=== PATIENT | female | born 1985 | race Two or more races ===

== ENCOUNTER 2016-10-05 00:55 | Emergency (ER) | payer MEDICAID, OTHER ==
[~2016-10-05] VITALS: Ht 157.5 cm; Wt 75.3 kg
[2016-10-05 07:22] VITALS: BP 104/70
[2016-10-05] MEDS ORDERED: LIDOCAINE 2%HCL (LOCAL ANESTH.) INJ 20ML MDV ID ONE (07:30)
[2016-10-05] MEDS ORDERED: NEOMYCIN-BACITRACIN-POLYM UNITDOSE PKG TOP OINT TOP ONE (07:30)
[2016-10-05] MEDS ORDERED: TETANUS-DIPTH-ACEL PERTUSSIS 0.5ML SYRG IM ONE (07:30)
== END 2016-10-05 08:23 | disposition home or self-care (01) ==
LOC: ER 00:58
DX: S61.211A Laceration without foreign body of left index finger without damage to nail, initial encounter (principal); Z88.0 Allergy status to penicillin; F17.210 Nicotine dependence, cigarettes, uncomplicated; Z23 Encounter for immunization; W23.0XXA Caught, crushed, jammed, or pinched between moving objects, initial encounter; Y93.89 Activity, other specified; Y99.8 Other external cause status; Y92.89 Other specified places as the place of occurrence of the external cause
CPT/HCPCS: 12001; 12041; 29130; 73130; 90471; 90715

== ENCOUNTER 2021-10-20 16:52 | Inpatient (IN) | payer MEDICAID ==
[~2021-10-20] VITALS: Ht 157.5 cm; Wt 75.1 kg
[2021-10-20] MEDS ORDERED: MORPHINE SULFATE 4 MG/ML SYR/VIAL IV ONE (17:15)
[2021-10-20] MEDS ORDERED: InsuLIN REG 1unit/0.01ml Soln (100units/ml) IV ONE (17:15)
[2021-10-20] MEDS ORDERED: ONDANSETRON HCL 4 MG/2 ML VIAL IV ONE (17:15)
[2021-10-20] MEDS ORDERED: PANTOPRAZOLE 40 MG/10 ML VIAL INJ IV ONE (17:15)
[2021-10-20] MEDS ORDERED: SODIUM CHLORIDE 0.9% 500 ML IV ONE (17:15)
[2021-10-20 18:06] LABS: Eosinophils # (auto) 0 10 ^3/uL (0-0.8); Lymphocytes # (auto) 1.5 10 ^3/uL (0.4-5.4); Monocytes # (auto) 0.9 10 ^3/uL (0-1.3); Red Cell Distribution Width 14.4 % (11.8-14.3)
[2021-10-20 18:08] LABS: Basophils # (auto) 0.2 10 ^3/uL (0-0.2); Basophils % (auto) 1.1 % (0.0-2.0); Hematocrit 46.7 % (36.0-46.0); Hemoglobin 15.9 g/dL (12.2-16.2); Lymphocytes % (auto) 10.3 % (10.0-50.0); Mean Corpuscular Hemoglobin 26.5 pg (28.0-32.0); Mean Corpuscular Hgb Conc. 34.1 g/dL (32.0-36.0); Mean Corpuscular Volume 77.8 fL (80.0-100.0); Monocytes % (auto) 6.4 % (0.0-12.0); Neutrophils # (auto) 11.9 10 ^3/uL (1.6-8.6); Neutrophils % (auto) 82.2 % (37.0-80.0); White Blood Cell 14.5 10^3/uL (4.4-10.8)
[2021-10-20 18:22] LABS: Albumin 4.6 g/dL (3.4-5.0); Calcium 10.4 mg/dL (8.5-10.1); Potassium 3.4 mmol/L (3.5-5.1)
[2021-10-20 18:25] LABS: BUN/Creatinine Ratio 10.1; Bilirubin, Total 1.3 mg/dL (0.2-1.0); Total Protein 8.5 g/dL (6.4-8.2)
[2021-10-20 18:48] LABS: INR 1.07 (0.9-1.15)
[2021-10-20] MEDS ORDERED: DEXTROSE (50%) 50ML SYRG IV PRN ×2 (19:30→22:00)
[2021-10-20] MEDS ORDERED: INSULIN LANTUS (GLARGINE) 1 /0.01ml (100units/ml) SC ONE (19:30)
[2021-10-20] MEDS: ACCU-CHEK COMFORT CURVE STRIP VI SCH ×3 (19:30→22:37)
[2021-10-20 20:04] LABS: Urine Bacteria FEW /hpf (None Seen); Urine Blood Negative /uL (Negative); Urine Specific Gravity 1.028 (1.001-1.035); Urine WBC 2 /hpf (0 - 5)
[2021-10-20] MEDS: InsuLIN R (HUMAN) 100 UNITS in SODIUM CHL 0.9% 99 ML IV SCH (21:00)
[2021-10-20] MEDS ORDERED: NITROGLYCERIN 0.4 MG SL TAB SL PRN (22:00)
[2021-10-20 23:02] LABS: Hematocrit 43.9 % (36.0-46.0); Hemoglobin 14.8 g/dL (12.2-16.2)
[2021-10-20 23:18] LABS: Calcium 9.5 mg/dL (8.5-10.1); Potassium 3.2 mmol/L (3.5-5.1)
[2021-10-20] MEDS: ONDANSETRON HCL 4 MG/2 ML VIAL IV PRN (23:31)
[2021-10-20] MEDS: MORPHINE SULFATE INJECTION 2 MG/ML SYRG IV PRN (23:41)
[2021-10-21] MEDS: ACCU-CHEK COMFORT CURVE STRIP VI SCH ×15 (00:06→19:55)
[2021-10-21] MEDS: ONDANSETRON HCL 4 MG/2 ML VIAL IV PRN ×3 (03:15→21:58)
[2021-10-21] MEDS: MORPHINE SULFATE INJECTION 2 MG/ML SYRG IV PRN ×3 (03:15→19:59)
[2021-10-21] MEDS ORDERED: MORPHINE SULFATE INJECTION 2 MG/ML SYRG ONE (08:14)
[2021-10-21] MEDS ORDERED: PROMETHAZINE HCL 25 MG/ML 1ML IV ONE (08:15)
[2021-10-21] MEDS: SODIUM CHLORIDE 0.9% 1,000 ML IV SCH ×3 (08:42→19:52)
[2021-10-21 09:21] LABS: Eosinophils # (auto) 0 10 ^3/uL (0-0.8)
[2021-10-21 09:23] LABS: Basophils # (auto) 0 10 ^3/uL (0-0.2); Basophils % (auto) 0.2 % (0.0-2.0); Eosinophils % (auto) 0.1 % (0.0-7.0); Hematocrit 40.6 % (36.0-46.0); Hemoglobin 13.9 g/dL (12.2-16.2); Lymphocytes % (auto) 12.3 % (10.0-50.0); Mean Corpuscular Hemoglobin 26.8 pg (28.0-32.0); Mean Corpuscular Hgb Conc. 34.3 g/dL (32.0-36.0); Monocytes % (auto) 6.2 % (0.0-12.0); Neutrophils % (auto) 81.2 % (37.0-80.0); Nucleated Red Blood Cells % 0.2 %
[2021-10-21 09:32] LABS: Albumin 4.1 g/dL (3.4-5.0); Calcium 9.3 mg/dL (8.5-10.1)
[2021-10-21 09:35] LABS: BUN/Creatinine Ratio 21.1; Bilirubin, Total 1.4 mg/dL (0.2-1.0); Total Protein 7.3 g/dL (6.4-8.2)
[2021-10-21 09:37] LABS: Potassium 2.8 mmol/L (3.5-5.1)
[2021-10-21] MEDS ORDERED: POTASSIUM EFFERVESENT TAB 25 MEQ PO ONE (09:45)
[2021-10-21] MEDS ORDERED: INSULIN LANTUS (GLARGINE) 1 /0.01ml (100units/ml) SC SCH (10:00)
[2021-10-21] MEDS ORDERED: D5W/SOD CHL 0.45%/KCL 20MEQ 1,000 ML IV SCH (10:45)
[2021-10-21] MEDS ORDERED: SODIUM CHLORIDE 0.9% 1,000 ML IV SCH ×2 (12:15→14:15)
[2021-10-21] MEDS: POTASSIUM CHL 10MEQ/50ML 50 ML IV SCH ×4 (12:42→16:14)
[2021-10-21] MEDS: InsuLIN R (HUMAN) 100 UNITS in SODIUM CHL 0.9% 99 ML IV SCH (12:47)
[2021-10-21] MEDS: PROMETHAZINE HCL 25 MG/ML 1ML IV PRN ×2 (12:49→20:01)
[2021-10-21 14:07] LABS: BUN/Creatinine Ratio 18.7; Calcium 8.8 mg/dL (8.5-10.1); Potassium 3.4 mmol/L (3.5-5.1)
[2021-10-21] MEDS ORDERED: LACTULOSE 20Gm/30ML SOLN PO PRN (15:00)
[2021-10-21 16:54] LABS: BUN/Creatinine Ratio 18.4; Calcium 7.7 mg/dL (8.5-10.1); Potassium 3.9 mmol/L (3.5-5.1)
[2021-10-21] MEDS: SUCRALFATE 1 GM/10 ML ORAL SUSP PO SCH ×2 (17:30→21:57)
[2021-10-21] MEDS ORDERED: INSULIN LANTUS (GLARGINE) 1 /0.01ml (100units/ml) SC ONE (19:30)
[2021-10-21] MEDS ORDERED: DEXTROSE (50%) 50ML SYRG IV PRN (19:30)
[2021-10-21] MEDS: InsuLIN REG 1unit/0.01ml Soln (100units/ml) SC SCH (19:55)
[2021-10-21] MEDS: PANTOPRAZOLE 40 MG/10 ML VIAL INJ IV SCH (21:57)
[2021-10-22] MEDS: MORPHINE SULFATE INJECTION 2 MG/ML SYRG IV PRN ×5 (00:46→21:55)
[2021-10-22] MEDS: ACCU-CHEK COMFORT CURVE STRIP VI SCH ×7 (00:46→23:57)
[2021-10-22] MEDS: InsuLIN REG 1unit/0.01ml Soln (100units/ml) SC SCH ×6 (00:52→20:14)
[2021-10-22 01:30] VITALS: BP 141/84
[2021-10-22] MEDS: ONDANSETRON HCL 4 MG/2 ML VIAL IV PRN ×4 (04:11→20:05)
[2021-10-22 05:00] VITALS: BP 128/82
[2021-10-22 05:49] LABS: Basophils # (auto) 0.1 10 ^3/uL (0-0.2); Eosinophils # (auto) 0 10 ^3/uL (0-0.8); Eosinophils % (auto) 0.2 % (0.0-7.0); Hemoglobin 12.3 g/dL (12.2-16.2); Mean Corpuscular Volume 78.7 fL (80.0-100.0); Monocytes # (auto) 0.7 10 ^3/uL (0-1.3); Monocytes % (auto) 6.1 % (0.0-12.0); Neutrophils # (auto) 8.6 10 ^3/uL (1.6-8.6); Nucleated Red Blood Cells % 0.1 %; White Blood Cell 12.2 10^3/uL (4.4-10.8)
[2021-10-22 05:51] LABS: Basophils % (auto) 0.8 % (0.0-2.0); Lymphocytes # (auto) 2.7 10 ^3/uL (0.4-5.4); Lymphocytes % (auto) 22.5 % (10.0-50.0); Mean Corpuscular Hemoglobin 26.8 pg (28.0-32.0); Mean Corpuscular Hgb Conc. 34.1 g/dL (32.0-36.0); Neutrophils % (auto) 70.4 % (37.0-80.0); Red Blood Cells 4.58 10^6/uL (4.0-5.20); Red Cell Distribution Width 14.1 % (11.8-14.3)
[2021-10-22 06:01] LABS: Albumin 3.3 g/dL (3.4-5.0); Calcium 8.4 mg/dL (8.5-10.1); Potassium 3.2 mmol/L (3.5-5.1)
[2021-10-22 06:06] LABS: BUN/Creatinine Ratio 10.3
[2021-10-22 06:07] LABS: Bilirubin, Total 0.9 mg/dL (0.2-1.0)
[2021-10-22] MEDS: SUCRALFATE 1 GM/10 ML ORAL SUSP PO SCH ×4 (07:00→21:53)
[2021-10-22] MEDS ORDERED: LIDOCAINE VISCOUS 2% 15ML UD ONE (08:09)
[2021-10-22] MEDS ORDERED: SODIUM CHLORIDE LOCK 10 ML ONE (08:09)
[2021-10-22] MEDS ORDERED: diphenhdrAMINE HCL 50 MG/1 ML VL ONE (08:10)
[2021-10-22 09:09] VITALS: BP 99/67
[2021-10-22] MEDS: fentaNYL CITRATE 100 MCG/2 ML VL ONE ×2 (09:22→09:25)
[2021-10-22] MEDS: MIDAZOLAM HCL 5 MG/ML-1ML VIAL ONE ×2 (09:22→09:25)
[2021-10-22] MEDS: POTASSIUM CHL 10MEQ/50ML 50 ML IV SCH ×4 (10:24→17:12)
[2021-10-22] MEDS: PANTOPRAZOLE 40 MG/10 ML VIAL INJ IV SCH ×2 (10:24→21:53)
[2021-10-22] MEDS: INSULIN LANTUS (GLARGINE) 1 /0.01ml (100units/ml) SC SCH (11:13)
[2021-10-22] MEDS ORDERED: ROSU5TAB5 PO (11:37)
[2021-10-22] MEDS ORDERED: LISI-285 PO (11:37)
[2021-10-22 12:55] VITALS: BP 132/78
[2021-10-22] MEDS ORDERED: METF-371 PO (15:36)
[2021-10-22] MEDS ORDERED: SUCR1TAB22 PO (15:36)
[2021-10-22] MEDS ORDERED: PANT40TA2 PO (15:36)
[2021-10-22] MEDS ORDERED: INSLANTI SC (15:36)
[2021-10-22] MEDS ORDERED: CHOL500023 PO (15:41)
[2021-10-22 16:57] VITALS: BP 145/93
[2021-10-22 22:00] VITALS: BP 138/79
[2021-10-22] MEDS: PROMETHAZINE HCL 25 MG/ML 1ML IV PRN (23:44)
[2021-10-23] MEDS: InsuLIN REG 1unit/0.01ml Soln (100units/ml) SC SCH ×4 (00:02→12:00)
[2021-10-23] MEDS: ONDANSETRON HCL 4 MG/2 ML VIAL IV PRN (03:39)
[2021-10-23] MEDS: ACCU-CHEK COMFORT CURVE STRIP VI SCH ×3 (03:50→12:00)
[2021-10-23 05:00] VITALS: BP 125/83
[2021-10-23] MEDS: SUCRALFATE 1 GM/10 ML ORAL SUSP PO SCH ×2 (07:06→11:30)
[2021-10-23] MEDS: SODIUM CHLORIDE 0.9% 1,000 ML IV SCH ×2 (07:13→11:30)
[2021-10-23 07:33] LABS: Basophils # (auto) 0.1 10 ^3/uL (0-0.2); Basophils % (auto) 1.1 % (0.0-2.0); Hemoglobin 12.5 g/dL (12.2-16.2); Lymphocytes # (auto) 2.7 10 ^3/uL (0.4-5.4); Monocytes # (auto) 0.5 10 ^3/uL (0-1.3); Nucleated Red Blood Cells % 0.1 %
[2021-10-23 07:35] LABS: Eosinophils # (auto) 0.1 10 ^3/uL (0-0.8); Hematocrit 36.7 % (36.0-46.0); Lymphocytes % (auto) 36.6 % (10.0-50.0); Mean Corpuscular Hgb Conc. 34.2 g/dL (32.0-36.0); Monocytes % (auto) 6.4 % (0.0-12.0); Neutrophils % (auto) 53.9 % (37.0-80.0); Red Blood Cells 4.64 10^6/uL (4.0-5.20); Red Cell Distribution Width 14.1 % (11.8-14.3); White Blood Cell 7.3 10^3/uL (4.4-10.8)
[2021-10-23] MEDS: PANTOPRAZOLE 40 MG/10 ML VIAL INJ IV SCH (08:46)
[2021-10-23] MEDS: INSULIN LANTUS (GLARGINE) 1 /0.01ml (100units/ml) SC SCH (08:47)
[2021-10-23] MEDS: MORPHINE SULFATE INJECTION 2 MG/ML SYRG IV PRN (08:49)
[2021-10-23 09:00] VITALS: BP 119/79
== END 2021-10-23 12:15 | disposition home or self-care (01) | DRG 241 ==
LOC: EDBD 16:52 → ER 16:52 → OVERFLOW 21:48 → TELE-CENTR 10-21 23:22
PROVIDERS: ADMIT Nurse Practitioner; ATTEND Internal Medicine
PROC: 0DJ08ZZ Inspection of Upper Intestinal Tract, Via Natural or Artificial Opening Endoscopic (ICD-10-PCS; principal; 2021-10-22 09:19)
DX: K29.71 Gastritis, unspecified, with bleeding (principal); N17.0 Acute kidney failure with tubular necrosis; E11.10 Type 2 diabetes mellitus with ketoacidosis without coma; K20.91 Esophagitis, unspecified with bleeding; R65.10 Systemic inflammatory response syndrome (SIRS) of non-infectious origin without acute organ dysfunction; K76.0 Fatty (change of) liver, not elsewhere classified; K29.81 Duodenitis with bleeding; D72.829 Elevated white blood cell count, unspecified; E87.6 Hypokalemia; E55.9 Vitamin D deficiency, unspecified; E66.9 Obesity, unspecified; E78.5 Hyperlipidemia, unspecified; F12.90 Cannabis use, unspecified, uncomplicated; F17.210 Nicotine dependence, cigarettes, uncomplicated; I10 Essential (primary) hypertension; K57.30 Diverticulosis of large intestine without perforation or abscess without bleeding; Z20.822 Contact with and (suspected) exposure to COVID-19; Z80.0 Family history of malignant neoplasm of digestive organs; Z68.30 Body mass index [BMI] 30.0-30.9, adult; Z82.49 Family history of ischemic heart disease and other diseases of the circulatory system; Z83.3 Family history of diabetes mellitus; Z90.49 Acquired absence of other specified parts of digestive tract; Z90.710 Acquired absence of both cervix and uterus; Z88.2 Allergy status to sulfonamides; Z88.0 Allergy status to penicillin
CPT/HCPCS: 36415; 36600; 74176; 80048; 80053; 80061; 81001; 82010; 82150; 82306; 82805; 82962; 83036; 83690; 83735; 84132; 84443; 85014; 85018; 85025; 85610; 85730; 86850; 86900; 86901; 87426; 93005; 96361; 96372; 96374; 96375; 99291; C9113; G0378; J1815; J2250; J2405

== ENCOUNTER 2021-11-12 08:16 | Inpatient (IN) | payer MEDICAID ==
[~2021-11-12] VITALS: Ht 152.4 cm; Wt 71.8 kg
[~2021-11-12 08:16] MED LIST: CHOL500023 PO; INSLANTI SC; LISI-285 PO; METF-371 PO; PANT40TA2 PO; ROSU5TAB5 PO; SUCR1TAB22 PO
[2021-11-12] MEDS ORDERED: SODIUM CHLORIDE 0.9% 1,000 ML IV ONE (08:45)
[2021-11-12 08:53] LABS: Basophils # (auto) 0 10 ^3/uL (0-0.2); Basophils % (auto) 0.3 % (0.0-2.0); Eosinophils # (auto) 0 10 ^3/uL (0-0.8); Hematocrit 42.3 % (36.0-46.0); Red Cell Distribution Width 14.2 % (11.8-14.3)
[2021-11-12 08:54] LABS: Eosinophils % (auto) 0.2 % (0.0-7.0); Hemoglobin 14.9 g/dL (12.2-16.2); Lymphocytes # (auto) 1.8 10 ^3/uL (0.4-5.4); Lymphocytes % (auto) 11.7 % (10.0-50.0); Mean Corpuscular Hemoglobin 27.4 pg (28.0-32.0); Mean Corpuscular Hgb Conc. 35.2 g/dL (32.0-36.0); Mean Corpuscular Volume 77.7 fL (80.0-100.0); Monocytes # (auto) 0.8 10 ^3/uL (0-1.3); Monocytes % (auto) 5.1 % (0.0-12.0); Neutrophils # (auto) 12.8 10 ^3/uL (1.6-8.6); Neutrophils % (auto) 82.7 % (37.0-80.0); Red Blood Cells 5.44 10^6/uL (4.0-5.20); White Blood Cell 15.4 10^3/uL (4.4-10.8)
[2021-11-12] MEDS ORDERED: MORPHINE SULFATE 4 MG/ML SYR/VIAL IV ONE (09:00)
[2021-11-12] MEDS ORDERED: ONDANSETRON HCL 4 MG/2 ML VIAL IV ONE (09:00)
[2021-11-12 09:04] LABS: Albumin 4.7 g/dL (3.4-5.0); BUN/Creatinine Ratio 17.1; Calcium 10.1 mg/dL (8.5-10.1)
[2021-11-12 09:08] LABS: Bilirubin, Total 1.3 mg/dL (0.2-1.0)
[2021-11-12 09:12] LABS: Potassium 2.6 mmol/L (3.5-5.1)
[2021-11-12] MEDS ORDERED: InsuLIN REG 1unit/0.01ml Soln (100units/ml) IV ONE (09:15)
[2021-11-12] MEDS: POTASSIUM CHL 10MEQ/50ML 50 ML IV SCH ×8 (09:59→23:29)
[2021-11-12] MEDS ORDERED: NITROGLYCERIN 0.4 MG SL TAB SL PRN (11:00)
[2021-11-12] MEDS ORDERED: MORPHINE SULFATE INJECTION 2 MG/ML SYRG IV PRN (11:00)
[2021-11-12] MEDS ORDERED: LACTATED RINGER'S 2,000 ML IV ONE (11:00)
[2021-11-12] MEDS ORDERED: DEXTROSE (50%) 50ML SYRG IV PRN (11:00)
[2021-11-12] MEDS ORDERED: PANTOPRAZOLE 40 MG/10 ML VIAL INJ IV ONE (11:45)
[2021-11-12] MEDS ORDERED: SUCRALFATE 1 GM/10 ML ORAL SUSP PO ONE ×2 (11:45→12:45)
[2021-11-12] MEDS ORDERED: ONDANSETRON HCL 4 MG/2 ML VIAL IV PRN (12:30)
[2021-11-12] MEDS ORDERED: HYDROcodone-ACET 5/325MG TAB PO ONE (12:30)
[2021-11-12] MEDS ORDERED: HYDROcodone-ACET 5/325MG TAB PO PRN (12:30)
[2021-11-12] MEDS: ACCU-CHEK COMFORT CURVE STRIP VI SCH ×2 (12:38→18:00)
[2021-11-12] MEDS: InsuLIN REG 1unit/0.01ml Soln (100units/ml) SC SCH ×2 (12:38→18:00)
[2021-11-12] MEDS ORDERED: MULTIPLE VITAMINS W/ MINERALS TAB PO ONE (12:45)
[2021-11-12] MEDS: SOD CHL 0.9%/ KCL 20MEQ 1,000 ML IV SCH (12:45)
[2021-11-12] MEDS ORDERED: IPRATROPIUM BROM 0.5 MG/2.5ML INH SOL NEB ONE (12:45)
[2021-11-12] MEDS ORDERED: THIAMINE 100mg/ml INJ (200mg/2ml VIAL) IV ONE (12:45)
[2021-11-12] MEDS ORDERED: hydrOXYzine HCL 10 MG TAB PO PRN (12:45)
[2021-11-12] MEDS ORDERED: LACTULOSE 20Gm/30ML SOLN PO PRN (12:45)
[2021-11-12] MEDS ORDERED: PROMETHAZINE-DM 5 ML ORAL SYRUP PO PRN (12:45)
[2021-11-12] MEDS ORDERED: METOCLOPRAMIDE HCL 5MG/ml INJ 2ml VIAL IV PRN (12:45)
[2021-11-12] MEDS ORDERED: DOCUSATE SOD 100 MG CAP PO PRN (12:45)
[2021-11-12] MEDS ORDERED: cefTRIAXone 1GM/50ML D5W 50 ML IV ONE (12:45)
[2021-11-12] MEDS ORDERED: hydrALAZINE HCL 20 MG/ML VL IV PRN (12:45)
[2021-11-12] MEDS ORDERED: LORazepam 0.5 MG TAB PO PRN (12:45)
[2021-11-12] MEDS ORDERED: FOLIC ACID 1 MG TAB PO ONE (12:45)
[2021-11-12 13:46] LABS: Urine Bacteria FEW /hpf (None Seen); Urine Blood Negative /uL (Negative); Urine Mucus FEW (None Seen); Urine Specific Gravity 1.026 (1.001-1.035); Urine WBC 7 /hpf (0 - 5)
[2021-11-12 13:51] LABS: Magnesium 2.2 mg/dL (1.6-2.6)
[2021-11-12 15:16] LABS: INR 1.19 (0.9-1.15)
[2021-11-12] MEDS: MORPHINE SULFATE INJECTION 2 MG/ML SYRG IV PRN ×2 (15:32→22:50)
[2021-11-12 16:02] LABS: Albumin 3.5 g/dL (3.4-5.0); Calcium 8.1 mg/dL (8.5-10.1)
[2021-11-12 16:05] LABS: BUN/Creatinine Ratio 18.1; Bilirubin, Total 0.9 mg/dL (0.2-1.0); Total Protein 6.1 g/dL (6.4-8.2)
[2021-11-12 16:10] LABS: Potassium 2.8 mmol/L (3.5-5.1)
[2021-11-12] MEDS: SUCRALFATE 1 GM/10 ML ORAL SUSP PO SCH ×2 (17:00→21:03)
[2021-11-12] MEDS ORDERED: SUCRALFATE 1 GM/10 ML ORAL SUSP PO SCH (17:00)
[2021-11-12] MEDS: IPRATROPIUM BROM 0.5 MG/2.5ML INH SOL NEB SCH ×2 (18:00→22:24)
[2021-11-12] MEDS: ATORVASTATIN 20 MG TAB PO SCH (21:04)
[2021-11-12 21:48] VITALS: BP 135/80
[2021-11-12 22:01] VITALS: BP 108/25
[2021-11-12] MEDS: ONDANSETRON HCL 4 MG/2 ML VIAL IV PRN (22:50)
[2021-11-13] MEDS: InsuLIN REG 1unit/0.01ml Soln (100units/ml) SC SCH ×5 (00:08→23:49)
[2021-11-13] MEDS: IPRATROPIUM BROM 0.5 MG/2.5ML INH SOL NEB SCH ×2 (02:00→06:19)
[2021-11-13 05:00] VITALS: BP 114/72
[2021-11-13] MEDS: ACCU-CHEK COMFORT CURVE STRIP VI SCH ×5 (06:04→23:48)
[2021-11-13] MEDS: SUCRALFATE 1 GM/10 ML ORAL SUSP PO SCH ×4 (06:05→22:06)
[2021-11-13 06:44] LABS: INR 1.19 (0.9-1.15); Partial Thromboplastin Time 25.2 sec (23.6-33.0)
[2021-11-13 06:50] LABS: Magnesium 1.5 mg/dL (1.6-2.6); Phosphorus 3.2 mg/dL (2.5-4.90)
[2021-11-13] MEDS: ONDANSETRON HCL 4 MG/2 ML VIAL IV PRN ×2 (08:53→17:24)
[2021-11-13] MEDS: MORPHINE SULFATE INJECTION 2 MG/ML SYRG IV PRN ×2 (08:55→17:25)
[2021-11-13] MEDS: SOD CHL 0.9%/ KCL 20MEQ 1,000 ML IV SCH ×3 (09:11→21:05)
[2021-11-13] MEDS: cefTRIAXone 1GM/50ML D5W 50 ML IV SCH (09:12)
[2021-11-13] MEDS: PANTOPRAZOLE 40 MG/10 ML VIAL INJ IV SCH (09:12)
[2021-11-13] MEDS: BENAZEPRIL HCL 10 MG TAB PO SCH (09:17)
[2021-11-13] MEDS: CHOLECALCIFEROL (VITD3) 2,000 UNIT CAP/TAB PO SCH (09:17)
[2021-11-13] MEDS: ASPirin 81 mg TAB PO SCH (09:18)
[2021-11-13] MEDS: FOLIC ACID 1 MG TAB PO SCH (09:18)
[2021-11-13] MEDS: THIAMINE HCL 100 MG TAB PO SCH (09:19)
[2021-11-13] MEDS: MULTIPLE VITAMINS W/ MINERALS TAB PO SCH (09:19)
[2021-11-13] MEDS: ENOXAPARIN SOD 40 MG/0.4 ML SYRINGE SC SCH (09:20)
[2021-11-13] MEDS ORDERED: IPRATROPIUM BROM 0.5 MG/2.5ML INH SOL NEB PRN (09:30)
[2021-11-13 12:00] VITALS: BP 122/75
[2021-11-13 14:22] LABS: Basophils # (auto) 0.1 10 ^3/uL (0-0.2); Basophils % (auto) 1.1 % (0.0-2.0); Eosinophils # (auto) 0.2 10 ^3/uL (0-0.8); Eosinophils % (auto) 2.1 % (0.0-7.0); Hematocrit 36.1 % (36.0-46.0); Hemoglobin 12.4 g/dL (12.2-16.2); Lymphocytes # (auto) 4.3 10 ^3/uL (0.4-5.4); Lymphocytes % (auto) 44.3 % (10.0-50.0); Mean Corpuscular Hemoglobin 27.2 pg (28.0-32.0); Mean Corpuscular Hgb Conc. 34.2 g/dL (32.0-36.0); Mean Corpuscular Volume 79.4 fL (80.0-100.0); Monocytes # (auto) 0.5 10 ^3/uL (0-1.3); Monocytes % (auto) 4.8 % (0.0-12.0); Neutrophils # (auto) 4.7 10 ^3/uL (1.6-8.6); Neutrophils % (auto) 47.7 % (37.0-80.0); Nucleated Red Blood Cells % 0.2 %; Red Blood Cells 4.55 10^6/uL (4.0-5.20); White Blood Cell 9.8 10^3/uL (4.4-10.8)
[2021-11-13 14:40] LABS: Calcium 8.3 mg/dL (8.5-10.1); Potassium 3.1 mmol/L (3.5-5.1)
[2021-11-13 14:43] LABS: Albumin 3.3 g/dL (3.4-5.0); BUN/Creatinine Ratio 8.5
[2021-11-13 14:54] LABS: Bilirubin, Total 0.8 mg/dL (0.2-1.0); Total Protein 5.9 g/dL (6.4-8.2)
[2021-11-13] MEDS: POTASSIUM CHL 10MEQ/50ML 50 ML IV SCH ×6 (15:53→23:22)
[2021-11-13 16:00] VITALS: BP 121/80
[2021-11-13 22:00] VITALS: BP 122/80
[2021-11-13] MEDS: ATORVASTATIN 20 MG TAB PO SCH (22:06)
[2021-11-14] MEDS: MORPHINE SULFATE INJECTION 2 MG/ML SYRG IV PRN ×2 (00:35→11:35)
[2021-11-14] MEDS: ONDANSETRON HCL 4 MG/2 ML VIAL IV PRN ×4 (00:36→21:47)
[2021-11-14] MEDS: SOD CHL 0.9%/ KCL 20MEQ 1,000 ML IV SCH ×3 (04:47→23:04)
[2021-11-14 05:00] VITALS: BP 111/57
[2021-11-14 05:33] LABS: Basophils # (auto) 0.1 10 ^3/uL (0-0.2); Basophils % (auto) 1.2 % (0.0-2.0); Eosinophils # (auto) 0.2 10 ^3/uL (0-0.8); Eosinophils % (auto) 3.8 % (0.0-7.0); Hematocrit 32.5 % (36.0-46.0); Hemoglobin 11.3 g/dL (12.2-16.2); Lymphocytes % (auto) 48.7 % (10.0-50.0); Mean Corpuscular Hemoglobin 27.3 pg (28.0-32.0); Mean Corpuscular Hgb Conc. 34.7 g/dL (32.0-36.0); Mean Corpuscular Volume 78.6 fL (80.0-100.0); Monocytes # (auto) 0.4 10 ^3/uL (0-1.3); Monocytes % (auto) 6.2 % (0.0-12.0); Neutrophils # (auto) 2.5 10 ^3/uL (1.6-8.6); Neutrophils % (auto) 40.1 % (37.0-80.0); Nucleated Red Blood Cells % 0.1 %; Red Blood Cells 4.14 10^6/uL (4.0-5.20); Red Cell Distribution Width 14.3 % (11.8-14.3); White Blood Cell 6.2 10^3/uL (4.4-10.8)
[2021-11-14 05:49] LABS: BUN/Creatinine Ratio 5.7; Calcium 8.3 mg/dL (8.5-10.1); Potassium 3.7 mmol/L (3.5-5.1)
[2021-11-14 05:55] LABS: Bilirubin, Total 0.8 mg/dL (0.2-1.0); Total Protein 5.4 g/dL (6.4-8.2)
[2021-11-14] MEDS: SUCRALFATE 1 GM/10 ML ORAL SUSP PO SCH ×4 (06:17→21:28)
[2021-11-14] MEDS: ACCU-CHEK COMFORT CURVE STRIP VI SCH ×4 (06:17→23:13)
[2021-11-14] MEDS: InsuLIN REG 1unit/0.01ml Soln (100units/ml) SC SCH ×4 (06:18→23:21)
[2021-11-14 08:00] VITALS: BP 99/69
[2021-11-14] MEDS: PANTOPRAZOLE 40 MG/10 ML VIAL INJ IV SCH (09:26)
[2021-11-14] MEDS: ASPirin 81 mg TAB PO SCH (09:26)
[2021-11-14] MEDS: cefTRIAXone 1GM/50ML D5W 50 ML IV SCH (09:26)
[2021-11-14] MEDS: CHOLECALCIFEROL (VITD3) 2,000 UNIT CAP/TAB PO SCH (09:27)
[2021-11-14] MEDS: FOLIC ACID 1 MG TAB PO SCH (09:27)
[2021-11-14] MEDS: THIAMINE HCL 100 MG TAB PO SCH (09:27)
[2021-11-14] MEDS: MULTIPLE VITAMINS W/ MINERALS TAB PO SCH (09:27)
[2021-11-14] MEDS: ENOXAPARIN SOD 40 MG/0.4 ML SYRINGE SC SCH (09:27)
[2021-11-14] MEDS: BENAZEPRIL HCL 10 MG TAB PO SCH (09:28)
[2021-11-14 12:00] VITALS: BP 149/98
[2021-11-14 16:00] VITALS: BP 137/86
[2021-11-14] MEDS: ATORVASTATIN 20 MG TAB PO SCH (21:28)
[2021-11-14 22:20] VITALS: BP 143/85
[2021-11-15] MEDS: SOD CHL 0.9%/ KCL 20MEQ 1,000 ML IV SCH ×2 (04:15→12:15)
[2021-11-15] MEDS: SUCRALFATE 1 GM/10 ML ORAL SUSP PO SCH ×3 (05:54→17:11)
[2021-11-15] MEDS: ACCU-CHEK COMFORT CURVE STRIP VI SCH ×3 (05:54→17:11)
[2021-11-15] MEDS: InsuLIN REG 1unit/0.01ml Soln (100units/ml) SC SCH ×3 (05:57→17:12)
[2021-11-15 06:02] LABS: Basophils # (auto) 0.1 10 ^3/uL (0-0.2); Basophils % (auto) 1.1 % (0.0-2.0); Eosinophils # (auto) 0.4 10 ^3/uL (0-0.8); Eosinophils % (auto) 5.3 % (0.0-7.0); Hematocrit 35.8 % (36.0-46.0); Hemoglobin 12.6 g/dL (12.2-16.2); Lymphocytes % (auto) 40.7 % (10.0-50.0); Mean Corpuscular Hemoglobin 27.3 pg (28.0-32.0); Mean Corpuscular Hgb Conc. 35.2 g/dL (32.0-36.0); Mean Corpuscular Volume 77.6 fL (80.0-100.0); Monocytes # (auto) 0.4 10 ^3/uL (0-1.3); Monocytes % (auto) 5.6 % (0.0-12.0); Neutrophils # (auto) 3.4 10 ^3/uL (1.6-8.6); Neutrophils % (auto) 47.3 % (37.0-80.0); Nucleated Red Blood Cells % 0.1 %; Red Blood Cells 4.61 10^6/uL (4.0-5.20); Red Cell Distribution Width 14.1 % (11.8-14.3); White Blood Cell 7.3 10^3/uL (4.4-10.8)
[2021-11-15 06:13] LABS: Potassium 3.7 mmol/L (3.5-5.1)
[2021-11-15 06:17] LABS: Albumin 3.3 g/dL (3.4-5.0); BUN/Creatinine Ratio 6.2; Calcium 9.1 mg/dL (8.5-10.1)
[2021-11-15 06:19] LABS: Bilirubin, Total 0.7 mg/dL (0.2-1.0); Total Protein 5.9 g/dL (6.4-8.2)
[2021-11-15 08:00] VITALS: BP 106/68
[2021-11-15] MEDS: ONDANSETRON HCL 4 MG/2 ML VIAL IV PRN ×2 (08:21→17:13)
[2021-11-15] MEDS: cefTRIAXone 1GM/50ML D5W 50 ML IV SCH (09:11)
[2021-11-15] MEDS: THIAMINE HCL 100 MG TAB PO SCH (09:12)
[2021-11-15] MEDS: FOLIC ACID 1 MG TAB PO SCH (09:12)
[2021-11-15] MEDS: PANTOPRAZOLE 40 MG/10 ML VIAL INJ IV SCH (09:12)
[2021-11-15] MEDS: CHOLECALCIFEROL (VITD3) 2,000 UNIT CAP/TAB PO SCH (09:12)
[2021-11-15] MEDS: ASPirin 81 mg TAB PO SCH (09:13)
[2021-11-15] MEDS: ENOXAPARIN SOD 40 MG/0.4 ML SYRINGE SC SCH (09:13)
[2021-11-15] MEDS: MULTIPLE VITAMINS W/ MINERALS TAB PO SCH (09:14)
[2021-11-15] MEDS: BENAZEPRIL HCL 10 MG TAB PO SCH (09:14)
[2021-11-15] MEDS ORDERED: LEVO500T31 PO (10:25)
[2021-11-15 11:48] VITALS: BP 143/95
[2021-11-15 15:46] VITALS: BP 106/68
[2021-11-15 16:05] VITALS: BP 128/88
== END 2021-11-15 18:50 | disposition home or self-care (01) | DRG 720 ==
LOC: ER 08:16 → EDBD 08:16 → TELE 10:50 → TELE-WESTW 18:14
PROVIDERS: ADMIT Hospitalist; ATTEND Family Medicine
DX: A41.9 Sepsis, unspecified organism (principal); E11.10 Type 2 diabetes mellitus with ketoacidosis without coma; E66.01 Morbid (severe) obesity due to excess calories; E87.6 Hypokalemia; K29.00 Acute gastritis without bleeding; N39.0 Urinary tract infection, site not specified; E78.5 Hyperlipidemia, unspecified; F12.90 Cannabis use, unspecified, uncomplicated; I10 Essential (primary) hypertension; Z20.822 Contact with and (suspected) exposure to COVID-19; Z68.30 Body mass index [BMI] 30.0-30.9, adult; F17.210 Nicotine dependence, cigarettes, uncomplicated; Z79.4 Long term (current) use of insulin; Z79.84 Long term (current) use of oral hypoglycemic drugs; Z82.49 Family history of ischemic heart disease and other diseases of the circulatory system; Z83.3 Family history of diabetes mellitus; Z90.710 Acquired absence of both cervix and uterus; Z90.49 Acquired absence of other specified parts of digestive tract; Z71.6 Tobacco abuse counseling; Z88.0 Allergy status to penicillin; Z88.2 Allergy status to sulfonamides
CPT/HCPCS: 36415; 36600; 74176; 80053; 80061; 81001; 81025; 82010; 82728; 82805; 82962; 83690; 83735; 83880; 84100; 84443; 84484; 85025; 85379; 85610; 85730; 87040; 87081; 87086; 87426; 94640; 96365; 96375; 99291; C9113; G0378; J0696; J1815; J2405

== ENCOUNTER 2021-11-26 12:53 | Inpatient (IN) | payer MEDICAID ==
[~2021-11-26] VITALS: Ht 152.4 cm; Wt 66.4 kg
[~2021-11-26 12:53] MED LIST changes: +LEVO500T31 PO
[2021-11-26] MEDS ORDERED: SODIUM CHLORIDE 0.9% 1,000 ML IVB ONE (13:15)
[2021-11-26] MEDS ORDERED: MORPHINE SULFATE 4 MG/ML SYR/VIAL IV ONE (13:15)
[2021-11-26] MEDS ORDERED: PROCHLORPERAZINE EDISYLATE 5 MG/ML 2ML VIAL IV ONE (13:15)
[2021-11-26] MEDS ORDERED: PANTOPRAZOLE 40 MG/10 ML VIAL INJ IV ONE (13:15)
[2021-11-26 14:17] LABS: Basophils # (auto) 0.1 10 ^3/uL (0-0.2); Eosinophils # (auto) 0 10 ^3/uL (0-0.8); Hematocrit 43.4 % (36.0-46.0); Hemoglobin 14.8 g/dL (12.2-16.2); Lymphocytes # (auto) 1.2 10 ^3/uL (0.4-5.4); Mean Corpuscular Hemoglobin 26.7 pg (28.0-32.0); Monocytes # (auto) 0.4 10 ^3/uL (0-1.3); White Blood Cell 12.2 10^3/uL (4.4-10.8)
[2021-11-26 14:20] LABS: Basophils % (auto) 0.7 % (0.0-2.0); Eosinophils % (auto) 0.2 % (0.0-7.0); Lymphocytes % (auto) 9.8 % (10.0-50.0); Mean Corpuscular Volume 78.5 fL (80.0-100.0); Monocytes % (auto) 3.3 % (0.0-12.0); Neutrophils # (auto) 10.5 10 ^3/uL (1.6-8.6); Nucleated Red Blood Cells % 0.1 %; Red Blood Cells 5.53 10^6/uL (4.0-5.20); Red Cell Distribution Width 14.2 % (11.8-14.3)
[2021-11-26 15:00] LABS: BUN/Creatinine Ratio 9.8; Calcium 9.8 mg/dL (8.5-10.1)
[2021-11-26 15:08] LABS: Bilirubin, Total 1.5 mg/dL (0.2-1.0); Total Protein 7.5 g/dL (6.4-8.2)
[2021-11-26] MEDS ORDERED: POTASSIUM CHL 20MEQ/100ML 100 ML IV ONE (15:30)
[2021-11-26] MEDS ORDERED: cefTRIAXone 1GM/50ML D5W 50 ML IV ONE (15:30)
[2021-11-26] MEDS ORDERED: MORPHINE SULFATE INJECTION 2 MG/ML SYRG IV PRN (17:00)
[2021-11-26] MEDS ORDERED: DEXTROSE (50%) 50ML SYRG IV PRN (17:00)
[2021-11-26] MEDS: POTASSIUM CHL 20MEQ/100ML 100 ML IV SCH ×2 (17:00→19:00)
[2021-11-26] MEDS ORDERED: NITROGLYCERIN 0.4 MG SL TAB SL PRN (17:00)
[2021-11-26] MEDS: ACCU-CHEK COMFORT CURVE STRIP VI SCH ×2 (17:37→21:53)
[2021-11-26] MEDS: InsuLIN REG 1unit/0.01ml Soln (100units/ml) SC SCH (18:09)
[2021-11-26] MEDS ORDERED: KETOROLAC TROMETH 30 MG/ML 1ML VIAL IV PRN (20:45)
[2021-11-26 21:00] VITALS: BP 127/82
[2021-11-26] MEDS: MORPHINE SULFATE INJECTION 2 MG/ML SYRG IV PRN (21:54)
[2021-11-26] MEDS: ONDANSETRON HCL 4 MG/2 ML VIAL IV PRN (21:54)
[2021-11-26 22:00] VITALS: BP 127/82
[2021-11-26] MEDS ORDERED: InsuLIN REG 1unit/0.01ml Soln (100units/ml) SC SCH (22:00)
[2021-11-27 02:40] LABS: Potassium 3.6 mmol/L (3.5-5.1)
[2021-11-27 02:55] LABS: INR 1.03 (0.9-1.15); Partial Thromboplastin Time 27.2 sec (23.6-33.0)
[2021-11-27 02:56] LABS: Phosphorus 2.8 mg/dL (2.5-4.90)
[2021-11-27 05:00] VITALS: BP 118/72
[2021-11-27] MEDS: MORPHINE SULFATE INJECTION 2 MG/ML SYRG IV PRN ×2 (05:28→20:50)
[2021-11-27] MEDS: ONDANSETRON HCL 4 MG/2 ML VIAL IV PRN ×3 (05:28→20:51)
[2021-11-27] MEDS: POTASSIUM CHL 20MEQ/100ML 100 ML IV SCH (05:42)
[2021-11-27 05:45] LABS: Basophils # (auto) 0.1 10 ^3/uL (0-0.2); Basophils % (auto) 1.1 % (0.0-2.0); Eosinophils # (auto) 0.2 10 ^3/uL (0-0.8); Eosinophils % (auto) 1.5 % (0.0-7.0); Hematocrit 34.6 % (36.0-46.0); Hemoglobin 11.9 g/dL (12.2-16.2); Lymphocytes # (auto) 2.6 10 ^3/uL (0.4-5.4); Lymphocytes % (auto) 24.9 % (10.0-50.0); Mean Corpuscular Hgb Conc. 34.5 g/dL (32.0-36.0); Mean Corpuscular Volume 78.4 fL (80.0-100.0); Monocytes # (auto) 0.5 10 ^3/uL (0-1.3); Monocytes % (auto) 4.8 % (0.0-12.0); Neutrophils % (auto) 67.7 % (37.0-80.0); Red Blood Cells 4.42 10^6/uL (4.0-5.20); Red Cell Distribution Width 14.2 % (11.8-14.3); White Blood Cell 10.3 10^3/uL (4.4-10.8)
[2021-11-27 06:03] LABS: INR 1.07 (0.9-1.15); Partial Thromboplastin Time 28.8 sec (23.6-33.0)
[2021-11-27 06:07] LABS: Potassium 3.3 mmol/L (3.5-5.1)
[2021-11-27 06:21] LABS: BUN/Creatinine Ratio 12.2; CRP High Sensitivity 3.35 mg/dL (< 0.3); Calcium 8.3 mg/dL (8.5-10.1); Magnesium 2.1 mg/dL (1.6-2.6); Phosphorus 3.2 mg/dL (2.5-4.90); Total Protein 5.6 g/dL (6.4-8.2); Uric Acid 2.4 mg/dL (2.6-6.0)
[2021-11-27] MEDS: InsuLIN REG 1unit/0.01ml Soln (100units/ml) SC SCH ×3 (07:00→17:14)
[2021-11-27] MEDS: ACCU-CHEK COMFORT CURVE STRIP VI SCH ×3 (07:00→17:13)
[2021-11-27 08:00] VITALS: BP 112/79
[2021-11-27 09:00] VITALS: BP 112/79
[2021-11-27 13:00] VITALS: BP 134/88
[2021-11-27] MEDS ORDERED: hydrALAZINE HCL 20 MG/ML VL IV PRN (14:30)
[2021-11-27] MEDS: D5W/ SOD CHL 0.9%/KCL 20MEQ 1,000 ML IV SCH (14:30)
[2021-11-27] MEDS ORDERED: DEXTROSE (50%) 50ML SYRG IV PRN (14:30)
[2021-11-27] MEDS ORDERED: PANTOPRAZOLE 40 MG/10 ML VIAL INJ IV ONE (14:30)
[2021-11-27 14:51] LABS: Alcohol, Urine < 3.0 mg/dL (0-10); Amphetamine Screen, Urine NEGATIVE (NEGATIVE); Barbiturate Scree,Urine NEGATIVE (NEGATIVE); Benzodiazephine Screen, Urine NEGATIVE (NEGATIVE); Cannabinoid Screen, Urine POSITIVE (NEGATIVE); Cocaine Screen, Urine NEGATIVE (NEGATIVE); Phencyclidine Screen, Urine NEGATIVE (NEGATIVE)
[2021-11-27 14:59] LABS: Opiate Scree,Urine POSITIVE (NEGATIVE)
[2021-11-27 15:35] LABS: Urine Bacteria FEW /hpf (None Seen); Urine Blood Negative /uL (Negative); Urine Mucus FEW (None Seen); Urine Specific Gravity 1.017 (1.001-1.035); Urine WBC 7 /hpf (0 - 5)
[2021-11-27 16:30] VITALS: BP 149/115
[2021-11-27] MEDS: SUCRALFATE 1 GM TAB PO SCH ×2 (17:20→22:18)
[2021-11-27 21:33] VITALS: BP 134/87
[2021-11-27] MEDS: PANTOPRAZOLE 40 MG/10 ML VIAL INJ IV SCH (22:18)
[2021-11-27] MEDS: INSULIN LANTUS (GLARGINE) 1 /0.01ml (100units/ml) SC SCH (22:19)
[2021-11-28] MEDS: ACCU-CHEK COMFORT CURVE STRIP VI SCH ×4 (00:21→18:00)
[2021-11-28] MEDS: InsuLIN REG 1unit/0.01ml Soln (100units/ml) SC SCH ×4 (00:24→18:42)
[2021-11-28] MEDS: MORPHINE SULFATE INJECTION 2 MG/ML SYRG IV PRN ×2 (02:50→09:12)
[2021-11-28 04:33] VITALS: BP 120/76
[2021-11-28] MEDS: D5W/ SOD CHL 0.9%/KCL 20MEQ 1,000 ML IV SCH (06:16)
[2021-11-28] MEDS: SUCRALFATE 1 GM TAB PO SCH ×4 (06:16→21:35)
[2021-11-28 07:03] LABS: Basophils # (auto) 0.1 10 ^3/uL (0-0.2); Basophils % (auto) 1.1 % (0.0-2.0); Eosinophils # (auto) 0.2 10 ^3/uL (0-0.8); Hemoglobin 12.1 g/dL (12.2-16.2); Monocytes # (auto) 0.4 10 ^3/uL (0-1.3)
[2021-11-28 07:05] LABS: Eosinophils % (auto) 2.5 % (0.0-7.0); Hematocrit 35.4 % (36.0-46.0); Lymphocytes # (auto) 3.1 10 ^3/uL (0.4-5.4); Lymphocytes % (auto) 38.1 % (10.0-50.0); Mean Corpuscular Hemoglobin 26.7 pg (28.0-32.0); Mean Corpuscular Hgb Conc. 34.1 g/dL (32.0-36.0); Mean Corpuscular Volume 78.4 fL (80.0-100.0); Monocytes % (auto) 4.8 % (0.0-12.0); Neutrophils # (auto) 4.3 10 ^3/uL (1.6-8.6); Neutrophils % (auto) 53.5 % (37.0-80.0); Red Blood Cells 4.52 10^6/uL (4.0-5.20); Red Cell Distribution Width 14.3 % (11.8-14.3); White Blood Cell 8.1 10^3/uL (4.4-10.8)
[2021-11-28 07:31] LABS: Potassium 3.4 mmol/L (3.5-5.1)
[2021-11-28 07:45] LABS: BUN/Creatinine Ratio 3.4; Calcium 8.8 mg/dL (8.5-10.1); Magnesium 2.1 mg/dL (1.6-2.6)
[2021-11-28 08:00] VITALS: BP 132/99
[2021-11-28] MEDS: PANTOPRAZOLE 40 MG/10 ML VIAL INJ IV SCH ×2 (09:09→21:35)
[2021-11-28] MEDS: CHOLECALCIFEROL (VITD3) 2,000 UNIT CAP/TAB PO SCH (09:09)
[2021-11-28] MEDS: ONDANSETRON HCL 4 MG/2 ML VIAL IV PRN (09:12)
[2021-11-28] MEDS ORDERED: POTASSIUM EFFERVESENT TAB 25 MEQ PO ONE (10:30)
[2021-11-28 12:00] VITALS: BP 129/85
[2021-11-28 12:12] LABS: Hepatitis A Ab IgM Negative
[2021-11-28 12:13] LABS: Hepatitis B Core IgM Negative
[2021-11-28 12:15] LABS: Hepatitis C Antibody Negative (Negative)
[2021-11-28] MEDS ORDERED: HYDROcodone-ACET 5/325MG TAB PO PRN (14:30)
[2021-11-28] MEDS ORDERED: METOCLOPRAMIDE HCL 5MG/ml INJ 2ml VIAL IV PRN (14:30)
[2021-11-28] MEDS ORDERED: levoFLOXacin 500MG 100 ML IV ONE (14:30)
[2021-11-28 16:00] VITALS: BP 130/85
[2021-11-28] MEDS: INSULIN LANTUS (GLARGINE) 1 /0.01ml (100units/ml) SC SCH (21:36)
[2021-11-28 22:00] VITALS: BP 136/86
[2021-11-29] MEDS: D5W/ SOD CHL 0.9%/KCL 20MEQ 1,000 ML IV SCH (00:11)
[2021-11-29] MEDS: InsuLIN REG 1unit/0.01ml Soln (100units/ml) SC SCH ×3 (00:15→12:48)
[2021-11-29] MEDS: ACCU-CHEK COMFORT CURVE STRIP VI SCH ×3 (00:17→12:00)
[2021-11-29 05:00] VITALS: BP 114/67
[2021-11-29] MEDS: SUCRALFATE 1 GM TAB PO SCH ×2 (06:03→12:48)
[2021-11-29 09:00] VITALS: BP 121/75
[2021-11-29] MEDS: PANTOPRAZOLE 40 MG/10 ML VIAL INJ IV SCH (09:44)
[2021-11-29] MEDS: levoFLOXacin 500MG 100 ML IV SCH ×2 (09:44→12:48)
[2021-11-29] MEDS: CHOLECALCIFEROL (VITD3) 2,000 UNIT CAP/TAB PO SCH (09:44)
[2021-11-29] MEDS ORDERED: ONDA-144 PO (10:30)
[2021-11-29] MEDS ORDERED: POTASSIUM EFFERVESENT TAB 25 MEQ PO ONE (10:30)
[2021-11-29] MEDS ORDERED: LEVO500T31 PO (10:30)
[2021-11-29] MEDS ORDERED: DOCU-94 PO (10:35)
[2021-11-29 12:30] VITALS: BP 131/72
[2021-11-29 16:13] VITALS: BP 121/85
== END 2021-11-29 16:32 | disposition home or self-care (01) | DRG 249 ==
LOC: EDBD 12:53 → ER 12:53 → EDUNIT# 12:53 → OVERFLOW 16:55 → WEST WING 21:00
PROVIDERS: ADMIT Hospitalist; ATTEND Internal Medicine
DX: R11.2 Nausea with vomiting, unspecified (principal); R65.10 Systemic inflammatory response syndrome (SIRS) of non-infectious origin without acute organ dysfunction; D64.9 Anemia, unspecified; E11.65 Type 2 diabetes mellitus with hyperglycemia; E55.9 Vitamin D deficiency, unspecified; E03.9 Hypothyroidism, unspecified; F12.90 Cannabis use, unspecified, uncomplicated; R10.13 Epigastric pain; E87.6 Hypokalemia; I10 Essential (primary) hypertension; K29.80 Duodenitis without bleeding; K59.00 Constipation, unspecified; E66.01 Morbid (severe) obesity due to excess calories; K21.9 Gastro-esophageal reflux disease without esophagitis; K29.00 Acute gastritis without bleeding; Z20.822 Contact with and (suspected) exposure to COVID-19; E78.5 Hyperlipidemia, unspecified; N39.0 Urinary tract infection, site not specified; Z80.0 Family history of malignant neoplasm of digestive organs; Z82.49 Family history of ischemic heart disease and other diseases of the circulatory system; Z83.3 Family history of diabetes mellitus; Z87.891 Personal history of nicotine dependence; Z90.49 Acquired absence of other specified parts of digestive tract; Z90.710 Acquired absence of both cervix and uterus; Z88.2 Allergy status to sulfonamides; Z88.0 Allergy status to penicillin; Z68.28 Body mass index [BMI] 28.0-28.9, adult
CPT/HCPCS: 36415; 74176; 80048; 80053; 80061; 80074; 80307; 81001; 81025; 82150; 82306; 82550; 82728; 82962; 83036; 83615; 83690; 83735; 83880; 84100; 84132; 84443; 84484; 84550; 85025; 85379; 85610; 85652; 85730; 86141; 86703; 87040; 87081; 87086; 96361; 96365; 96368; 96372; 96375; C9113; G0378; J0696; J1815; J1956; J2405; J3480

== ENCOUNTER 2022-11-20 07:37 | Inpatient (IN) | payer MEDICAID ==
[~2022-11-20] VITALS: Ht 154.9 cm; Wt 68.4 kg
[~2022-11-20 07:37] MED LIST changes: +DOCU-94 PO; +ONDA-144 PO
[2022-11-20 09:20] LABS: Urine Bacteria NONE SEEN /hpf (None Seen); Urine Blood Negative /uL (Negative); Urine Specific Gravity 1.015 (1.001-1.035); Urine WBC 1 /hpf (0 - 5)
[2022-11-20 09:23] LABS: Basophils # (auto) 0.1 10 ^3/uL (0-0.2); Basophils % (auto) 1.3 % (0.0-2.0); Eosinophils # (auto) 0.5 10 ^3/uL (0-0.8); Hematocrit 42.2 % (36.0-46.0); Lymphocytes # (auto) 1.9 10 ^3/uL (0.4-5.4); Lymphocytes % (auto) 20.9 % (10.0-50.0); Mean Corpuscular Hemoglobin 27.1 pg (28.0-32.0); Mean Corpuscular Hgb Conc. 33.2 g/dL (32.0-36.0); Mean Corpuscular Volume 81.6 fL (80.0-100.0); Monocytes # (auto) 0.4 10 ^3/uL (0-1.3); Neutrophils # (auto) 6.1 10 ^3/uL (1.6-8.6); Neutrophils % (auto) 67.8 % (37.0-80.0); Nucleated Red Blood Cells % 0.2 %; Red Blood Cells 5.17 10^6/uL (4.0-5.20); Red Cell Distribution Width 14.7 % (11.8-14.3); White Blood Cell 9.1 10^3/uL (4.4-10.8)
[2022-11-20 09:53] LABS: Albumin 4.1 g/dL (3.4-5.0); BUN/Creatinine Ratio 16.4; Bilirubin, Total 0.7 mg/dL (0.2-1.0); Calcium 9.5 mg/dL (8.5-10.1); Potassium 4.4 mmol/L (3.5-5.1); Total Protein 7.2 g/dL (6.4-8.2)
[2022-11-20] MEDS ORDERED: ONDANSETRON ODT 4 MG TAB PO ONE (10:15)
[2022-11-20] MEDS ORDERED: PANTOPRAZOLE 40 MG/10 ML VIAL INJ IV ONE (10:15)
[2022-11-20] MEDS ORDERED: ONDANSETRON HCL 4 MG/2 ML VIAL IV ONE (10:15)
[2022-11-20] MEDS ORDERED: SODIUM CHLORIDE 0.9% 1,000 ML IV ONE (10:15)
[2022-11-20 11:03] LABS: Lactic Acid w/Reflex 2.8 mmol/L (0.4-2.0)
[2022-11-20 11:05] LABS: INR 0.96 (0.9-1.15)
[2022-11-20] MEDS ORDERED: METOCLOPRAMIDE HCL 5MG/ml INJ 2ml VIAL IV PRN (11:15)
[2022-11-20] MEDS ORDERED: DOCUSATE SOD 100 MG CAP PO PRN (11:15)
[2022-11-20] MEDS ORDERED: DOCUSATE SOD 100 MG CAP PO ONE (11:15)
[2022-11-20] MEDS ORDERED: KETOROLAC TROMETH 30 MG/ML 1ML VIAL IV ONE (11:15)
[2022-11-20] MEDS ORDERED: SENNA 8.6 MG TAB PO ONE (11:15)
[2022-11-20] MEDS: SODIUM CHLORIDE 0.9% 1,000 ML IV SCH ×2 (11:30→22:09)
[2022-11-20] MEDS: SUCRALFATE 1 GM TAB PO SCH ×2 (17:16→22:09)
[2022-11-20 22:00] VITALS: BP 138/93
[2022-11-20] MEDS: SENNA 8.6 MG TAB PO SCH (22:09)
[2022-11-20] MEDS ORDERED: HYDR-3682 PO (23:49)
[2022-11-21] MEDS: KETOROLAC TROMETH 30 MG/ML 1ML VIAL IV PRN ×3 (00:10→22:21)
[2022-11-21 05:00] VITALS: BP 115/90
[2022-11-21 06:16] LABS: Basophils # (auto) 0.1 10 ^3/uL (0-0.2); Basophils % (auto) 1.2 % (0.0-2.0); Eosinophils # (auto) 0.5 10 ^3/uL (0-0.8); Eosinophils % (auto) 7.7 % (0.0-7.0); Hematocrit 36.7 % (36.0-46.0); Hemoglobin 12.5 g/dL (12.2-16.2); Lymphocytes # (auto) 2.3 10 ^3/uL (0.4-5.4); Lymphocytes % (auto) 36.6 % (10.0-50.0); Mean Corpuscular Hemoglobin 27.7 pg (28.0-32.0); Mean Corpuscular Hgb Conc. 34.2 g/dL (32.0-36.0); Mean Corpuscular Volume 80.9 fL (80.0-100.0); Monocytes # (auto) 0.3 10 ^3/uL (0-1.3); Monocytes % (auto) 4.7 % (0.0-12.0); Neutrophils # (auto) 3.2 10 ^3/uL (1.6-8.6); Neutrophils % (auto) 49.8 % (37.0-80.0); Nucleated Red Blood Cells % 0.1 %; Red Blood Cells 4.54 10^6/uL (4.0-5.20); Red Cell Distribution Width 14.5 % (11.8-14.3); White Blood Cell 6.4 10^3/uL (4.4-10.8)
[2022-11-21] MEDS: SUCRALFATE 1 GM TAB PO SCH ×5 (06:25→21:40)
[2022-11-21] MEDS: SODIUM CHLORIDE 0.9% 1,000 ML IV SCH ×2 (06:33→17:38)
[2022-11-21 06:41] LABS: Albumin 3.2 g/dL (3.4-5.0); BUN/Creatinine Ratio 13.1; Calcium 8.6 mg/dL (8.5-10.1)
[2022-11-21 06:44] LABS: Bilirubin, Total 0.8 mg/dL (0.2-1.0)
[2022-11-21 09:00] VITALS: BP 143/98
[2022-11-21] MEDS: PANTOPRAZOLE 40 MG/10 ML VIAL INJ IV SCH (10:13)
[2022-11-21 13:00] VITALS: BP 149/95
[2022-11-21] MEDS ORDERED: LIDOCAINE VISCOUS 2% 15ML UD ONE (14:34)
[2022-11-21] MEDS ORDERED: diphenhdrAMINE HCL 50 MG/1 ML VL ONE (14:35)
[2022-11-21] MEDS: fentaNYL CITRATE 100 MCG/2 ML VL ONE ×2 (16:14→16:17)
[2022-11-21] MEDS: MIDAZOLAM HCL 2MG/2ML 2ml VIAL (1mg/ml) ONE ×2 (16:14→16:17)
[2022-11-21 20:00] VITALS: BP 134/86
[2022-11-21] MEDS: SENNA 8.6 MG TAB PO SCH (21:40)
[2022-11-21 22:00] VITALS: BP 134/86
[2022-11-21] MEDS ORDERED: ONDANSETRON HCL 4 MG/2 ML VIAL IV PRN (22:00)
[2022-11-22] MEDS: SODIUM CHLORIDE 0.9% 1,000 ML IV SCH (03:04)
[2022-11-22 05:00] VITALS: BP 132/86
[2022-11-22 06:09] LABS: Basophils # (auto) 0.1 10 ^3/uL (0-0.2); Basophils % (auto) 0.9 % (0.0-2.0); Eosinophils # (auto) 0.6 10 ^3/uL (0-0.8); Eosinophils % (auto) 7.1 % (0.0-7.0); Hematocrit 36.9 % (36.0-46.0); Hemoglobin 12.5 g/dL (12.2-16.2); Lymphocytes # (auto) 2.2 10 ^3/uL (0.4-5.4); Lymphocytes % (auto) 27.8 % (10.0-50.0); Mean Corpuscular Hemoglobin 27.5 pg (28.0-32.0); Mean Corpuscular Hgb Conc. 33.9 g/dL (32.0-36.0); Mean Corpuscular Volume 81.1 fL (80.0-100.0); Monocytes # (auto) 0.4 10 ^3/uL (0-1.3); Monocytes % (auto) 5.2 % (0.0-12.0); Neutrophils # (auto) 4.6 10 ^3/uL (1.6-8.6); Nucleated Red Blood Cells % 0.1 %; Red Blood Cells 4.55 10^6/uL (4.0-5.20); Red Cell Distribution Width 14.8 % (11.8-14.3); White Blood Cell 7.9 10^3/uL (4.4-10.8)
[2022-11-22] MEDS: SUCRALFATE 1 GM TAB PO SCH ×2 (06:40→11:42)
[2022-11-22 06:56] LABS: Amylase 68 U/L (25-115); Lipase 413 U/L (73-393)
[2022-11-22 09:06] VITALS: BP 131/89
[2022-11-22] MEDS: PANTOPRAZOLE 40 MG/10 ML VIAL INJ IV SCH (09:43)
[2022-11-22 12:38] VITALS: BP 156/107
[2022-11-22] MEDS ORDERED: PANT40TA2 PO (14:05)
[2022-11-22] MEDS ORDERED: SUCR1TAB22 OR (14:05)
[2022-11-22 16:27] VITALS: BP 145/90
== END 2022-11-22 16:40 | disposition home or self-care (01) | DRG 241 ==
LOC: ER 07:37 → OVERFLOW 11:20 → CENTRAL 21:31
PROVIDERS: ADMIT Nurse Practitioner Family; ATTEND Internal Medicine
PROC: 0DB68ZX Excision of Stomach, Via Natural or Artificial Opening Endoscopic, Diagnostic (ICD-10-PCS; 2022-11-21)
PROC: 0DB98ZX Excision of Duodenum, Via Natural or Artificial Opening Endoscopic, Diagnostic (ICD-10-PCS; principal; 2022-11-21 16:08)
DX: K29.71 Gastritis, unspecified, with bleeding (principal); K85.90 Acute pancreatitis without necrosis or infection, unspecified; K25.4 Chronic or unspecified gastric ulcer with hemorrhage; Z68.28 Body mass index [BMI] 28.0-28.9, adult; E66.3 Overweight; Z20.822 Contact with and (suspected) exposure to COVID-19; E11.65 Type 2 diabetes mellitus with hyperglycemia; I10 Essential (primary) hypertension; Z88.2 Allergy status to sulfonamides; Z80.9 Family history of malignant neoplasm, unspecified; Z88.0 Allergy status to penicillin; Z82.49 Family history of ischemic heart disease and other diseases of the circulatory system; Z83.3 Family history of diabetes mellitus; Z90.710 Acquired absence of both cervix and uterus; Z90.49 Acquired absence of other specified parts of digestive tract
CPT/HCPCS: 36415; 43239; 71250; 74176; 80053; 80320; 81001; 82150; 82270; 82962; 83605; 83690; 85025; 85610; 86850; 86900; 86901; 87426; 96361; 96374; 96375; C9113; G0378; J1885; J2250; J2405

== ENCOUNTER 2023-01-30 14:18 | Inpatient (IN) | payer MEDICAID ==
[~2023-01-30] VITALS: Ht 152.4 cm; Wt 67.3 kg
[~2023-01-30 14:18] MED LIST changes: +HYDR-3682 PO; +SUCR1TAB22 OR
[2023-01-30 14:50] LABS: Basophils # (auto) 0.1 10 ^3/uL (0-0.2); Eosinophils # (auto) 0 10 ^3/uL (0-0.8); Monocytes # (auto) 0.3 10 ^3/uL (0-1.3)
[2023-01-30 14:52] LABS: Basophils % (auto) 0.7 % (0.0-2.0); Eosinophils % (auto) 0.2 % (0.0-7.0); Hematocrit 43.9 % (36.0-46.0); Hemoglobin 14.3 g/dL (12.2-16.2); Lymphocytes # (auto) 1.2 10 ^3/uL (0.4-5.4); Lymphocytes % (auto) 9.5 % (10.0-50.0); Mean Corpuscular Hemoglobin 26.2 pg (28.0-32.0); Mean Corpuscular Hgb Conc. 32.4 g/dL (32.0-36.0); Mean Corpuscular Volume 80.7 fL (80.0-100.0); Monocytes % (auto) 2.3 % (0.0-12.0); Neutrophils # (auto) 11.4 10 ^3/uL (1.6-8.6); Neutrophils % (auto) 87.3 % (37.0-80.0); Red Blood Cells 5.44 10^6/uL (4.0-5.20); Red Cell Distribution Width 15.2 % (11.8-14.3); White Blood Cell 13.1 10^3/uL (4.4-10.8)
[2023-01-30] MEDS ORDERED: SODIUM CHLORIDE 0.9% 1,000 ML IV ONE (15:00)
[2023-01-30] MEDS ORDERED: METOCLOPRAMIDE HCL 5MG/ml INJ 2ml VIAL IV ONE (15:00)
[2023-01-30 15:11] LABS: Albumin 4.4 g/dL (3.4-5.0); Amylase 81 U/L (25-115); Lipase 248 U/L (73-393); Potassium 3.4 mmol/L (3.5-5.1)
[2023-01-30 15:15] LABS: Bilirubin, Total 0.9 mg/dL (0.2-1.0); Calcium 9.6 mg/dL (8.5-10.1); Total Protein 7.8 g/dL (6.4-8.2)
[2023-01-30 15:26] LABS: Lactic Acid w/Reflex 5.8 mmol/L (0.4-2.0)
[2023-01-30] MEDS ORDERED: PANTOPRAZOLE 80 MG in SODIUM CHL 0.9% 100 ML IV ONE ×2 (16:00→18:00)
[2023-01-30] MEDS ORDERED: levoFLOXacin 500MG 100 ML IV ONE (16:00)
[2023-01-30] MEDS ORDERED: PANTOPRAZOLE 40mg/50ML NS AE 50 ML IV ONE (16:00)
[2023-01-30] MEDS ORDERED: LORazepam 2MG/ML-1ML VIAL IV ONE (17:45)
[2023-01-30] MEDS ORDERED: PROMETHAZINE HCL 25 MG/ML 1ML IM ONE (17:45)
[2023-01-30] MEDS: ACCU-CHEK COMFORT CURVE STRIP VI SCH (18:00)
[2023-01-30] MEDS ORDERED: DEXTROSE (50%) 50ML SYRG IV PRN (18:00)
[2023-01-30] MEDS ORDERED: PANTOPRAZOLE 40 MG/10 ML VIAL INJ IV ONE (18:00)
[2023-01-30] MEDS ORDERED: HYDROcodone-ACET 5/325MG TAB PO PRN (18:00)
[2023-01-30] MEDS ORDERED: LISINOPRIL 10 MG TAB PO ONE (18:00)
[2023-01-30] MEDS: InsuLIN REG 1unit/0.01ml Soln (100units/ml) SC SCH (18:38)
[2023-01-30] MEDS: SOD CHL 0.9%/ KCL 20MEQ 1,000 ML IV SCH (20:10)
[2023-01-30] MEDS: PANTOPRAZOLE 40 MG/10 ML VIAL INJ IV SCH (21:54)
[2023-01-31] MEDS: ONDANSETRON HCL 4 MG/2 ML VIAL IV PRN ×5 (00:32→23:47)
[2023-01-31] MEDS: MORPHINE SULFATE INJ 2 MG/ml SYRG IV PRN ×5 (00:34→23:57)
[2023-01-31] MEDS: ACCU-CHEK COMFORT CURVE STRIP VI SCH ×5 (00:39→23:47)
[2023-01-31 00:44] LABS: Urine Bacteria NONE SEEN /hpf (None Seen); Urine Blood Negative /uL (Negative); Urine Mucus FEW (None Seen); Urine Specific Gravity 1.017 (1.001-1.035); Urine WBC 1 /hpf (0 - 5)
[2023-01-31] MEDS: InsuLIN REG 1unit/0.01ml Soln (100units/ml) SC SCH ×5 (00:45→18:00)
[2023-01-31 02:22] LABS: Alcohol, Urine < 3.0 mg/dL (0-10); Amphetamine Screen, Urine NEGATIVE (NEGATIVE); Barbiturate Scree,Urine NEGATIVE (NEGATIVE); Benzodiazephine Screen, Urine NEGATIVE (NEGATIVE); Cannabinoid Screen, Urine POSITIVE (NEGATIVE); Cocaine Screen, Urine NEGATIVE (NEGATIVE)
[2023-01-31 02:30] LABS: Opiate Scree,Urine NEGATIVE (NEGATIVE); Phencyclidine Screen, Urine NEGATIVE (NEGATIVE)
[2023-01-31] MEDS: SOD CHL 0.9%/ KCL 20MEQ 1,000 ML IV SCH ×2 (04:00→12:45)
[2023-01-31 05:09] LABS: Basophils # (auto) 0 10 ^3/uL (0-0.2); Basophils % (auto) 0.4 % (0.0-2.0); Eosinophils # (auto) 0 10 ^3/uL (0-0.8); Eosinophils % (auto) 0.1 % (0.0-7.0); Hematocrit 37.7 % (36.0-46.0); Hemoglobin 12.9 g/dL (12.2-16.2); Lymphocytes # (auto) 1.8 10 ^3/uL (0.4-5.4); Lymphocytes % (auto) 17.4 % (10.0-50.0); Mean Corpuscular Hemoglobin 27.4 pg (28.0-32.0); Mean Corpuscular Hgb Conc. 34.1 g/dL (32.0-36.0); Mean Corpuscular Volume 80.4 fL (80.0-100.0); Monocytes # (auto) 0.8 10 ^3/uL (0-1.3); Monocytes % (auto) 7.2 % (0.0-12.0); Neutrophils # (auto) 7.8 10 ^3/uL (1.6-8.6); Neutrophils % (auto) 74.9 % (37.0-80.0); Nucleated Red Blood Cells % 0.2 %; Red Blood Cells 4.69 10^6/uL (4.0-5.20); Red Cell Distribution Width 15.1 % (11.8-14.3); White Blood Cell 10.5 10^3/uL (4.4-10.8)
[2023-01-31 05:16] LABS: Albumin 3.5 g/dL (3.4-5.0); Calcium 8.8 mg/dL (8.5-10.1); Potassium 3.4 mmol/L (3.5-5.1)
[2023-01-31 05:18] LABS: BUN/Creatinine Ratio 9.8 (10.0-20.0)
[2023-01-31 05:21] LABS: Bilirubin, Total 0.7 mg/dL (0.2-1.0); Total Protein 6.7 g/dL (6.4-8.2)
[2023-01-31] MEDS: PANTOPRAZOLE 40 MG/10 ML VIAL INJ IV SCH ×2 (10:54→21:32)
[2023-01-31] MEDS: LISINOPRIL 10 MG TAB PO SCH (10:54)
[2023-01-31 12:41] VITALS: BP 130/85
[2023-01-31 13:11] VITALS: BP 137/90
[2023-01-31 17:00] VITALS: BP 140/96
[2023-01-31] MEDS ORDERED: LISI-716 PO (17:41)
[2023-01-31 22:00] VITALS: BP 122/75
[2023-02-01] MEDS: InsuLIN REG 1unit/0.01ml Soln (100units/ml) SC SCH ×5 (00:03→23:13)
[2023-02-01] MEDS: SOD CHL 0.9%/ KCL 20MEQ 1,000 ML IV SCH ×3 (02:54→23:08)
[2023-02-01 05:00] VITALS: BP 131/74
[2023-02-01] MEDS: ACCU-CHEK COMFORT CURVE STRIP VI SCH ×4 (05:17→23:08)
[2023-02-01 08:30] VITALS: BP 108/85
[2023-02-01 08:57] VITALS: BP 108/85
[2023-02-01] MEDS: ONDANSETRON HCL 4 MG/2 ML VIAL IV PRN ×3 (09:51→21:16)
[2023-02-01] MEDS: PANTOPRAZOLE 40 MG/10 ML VIAL INJ IV SCH ×2 (09:53→21:07)
[2023-02-01] MEDS: MORPHINE SULFATE INJ 2 MG/ml SYRG IV PRN ×2 (09:56→16:43)
[2023-02-01] MEDS: LISINOPRIL 10 MG TAB PO SCH (09:59)
[2023-02-01 12:56] VITALS: BP 128/89
[2023-02-01 16:56] VITALS: BP 157/118
[2023-02-01 22:00] VITALS: BP 144/88
[2023-02-02] MEDS: MORPHINE SULFATE INJ 2 MG/ml SYRG IV PRN ×2 (01:51→11:24)
[2023-02-02 05:00] VITALS: BP 108/44
[2023-02-02] MEDS: SOD CHL 0.9%/ KCL 20MEQ 1,000 ML IV SCH ×2 (05:27→09:54)
[2023-02-02] MEDS: ACCU-CHEK COMFORT CURVE STRIP VI SCH ×2 (05:29→11:28)
[2023-02-02] MEDS: InsuLIN REG 1unit/0.01ml Soln (100units/ml) SC SCH ×2 (05:30→11:28)
[2023-02-02] MEDS: ONDANSETRON HCL 4 MG/2 ML VIAL IV PRN (08:34)
[2023-02-02 09:17] VITALS: BP 127/77
[2023-02-02] MEDS: LISINOPRIL 10 MG TAB PO SCH (09:53)
[2023-02-02] MEDS: PANTOPRAZOLE 40 MG/10 ML VIAL INJ IV SCH (09:53)
[2023-02-02 12:28] VITALS: BP 144/93
== END 2023-02-02 16:44 | disposition home or self-care (01) | DRG 241 ==
LOC: ER 14:18 → EDBD 14:18 → OVERFLOW 17:58 → WEST WING 01-31 11:23
PROVIDERS: ADMIT Internal Medicine; ATTEND Internal Medicine
DX: K29.90 Gastroduodenitis, unspecified, without bleeding (principal); E78.5 Hyperlipidemia, unspecified; K44.9 Diaphragmatic hernia without obstruction or gangrene; I10 Essential (primary) hypertension; F17.210 Nicotine dependence, cigarettes, uncomplicated; K25.9 Gastric ulcer, unspecified as acute or chronic, without hemorrhage or perforation; K21.9 Gastro-esophageal reflux disease without esophagitis; Z88.0 Allergy status to penicillin; Z90.710 Acquired absence of both cervix and uterus; Z83.3 Family history of diabetes mellitus; Z82.49 Family history of ischemic heart disease and other diseases of the circulatory system; Z80.9 Family history of malignant neoplasm, unspecified; Z90.49 Acquired absence of other specified parts of digestive tract; Z88.2 Allergy status to sulfonamides; Z88.8 Allergy status to other drugs, medicaments and biological substances
CPT/HCPCS: 36415; 74176; 80053; 80307; 81001; 82150; 82962; 83036; 83605; 83690; 84702; 85025; 87040; 96365; 96375; C9113; G0378; J1815; J1956; J2405

== ENCOUNTER 2023-04-03 22:22 | Emergency (ER) | payer MEDICAID ==
[~2023-04-03] VITALS: Ht 160 cm; Wt 70.0 kg
[~2023-04-03 22:22] MED LIST changes: -INSLANTI SC; -LEVO500T31 PO; -LISI-285 PO; +LISI10TA34 PO
[2023-04-03 23:00] VITALS: BP 174/96; PULSE 57; RESP 16; O2SAT 99
[2023-04-03] MEDS ORDERED: ONDANSETRON HCL 4 MG/2 ML VIAL IV ONE (23:00)
[2023-04-03] MEDS ORDERED: SODIUM CHLORIDE 0.9% 1,000 ML IV ONE (23:00)
[2023-04-03 23:13] LABS: Basophils # (auto) 0.1 10 ^3/uL (0-0.2); Eosinophils # (auto) 0 10 ^3/uL (0-0.8); Eosinophils % (auto) 0.1 % (0.0-7.0); Hematocrit 44.1 % (36.0-46.0); Monocytes # (auto) 0.3 10 ^3/uL (0-1.3); Neutrophils % (auto) 82.6 % (37.0-80.0)
[2023-04-03 23:15] LABS: Basophils % (auto) 1.2 % (0.0-2.0); Hemoglobin 14.8 g/dL (12.2-16.2); Lymphocytes # (auto) 1.4 10 ^3/uL (0.4-5.4); Mean Corpuscular Hemoglobin 26.8 pg (28.0-32.0); Mean Corpuscular Hgb Conc. 33.5 g/dL (32.0-36.0); Monocytes % (auto) 3.1 % (0.0-12.0); Neutrophils # (auto) 9.2 10 ^3/uL (1.6-8.6); Nucleated Red Blood Cells % 1.1 %; Red Blood Cells 5.52 10^6/uL (4.0-5.20); Red Cell Distribution Width 15.2 % (11.8-14.3); White Blood Cell 11.1 10^3/uL (4.4-10.8)
[2023-04-03 23:36] LABS: Albumin 4.7 g/dL (3.4-5.0); BUN/Creatinine Ratio 9.4 (10.0-20.0); Calcium 10.1 mg/dL (8.5-10.1); Potassium 3.6 mmol/L (3.5-5.1)
[2023-04-03 23:38] LABS: Bilirubin, Total 1.2 mg/dL (0.2-1.0); Total Protein 7.8 g/dL (6.4-8.2)
== END 2023-04-04 00:14 | disposition left against medical advice (07) ==
LOC: ER 22:22 → EDBD 22:22 → ER 04-04 00:14
DX: R10.84 Generalized abdominal pain (principal); R11.2 Nausea with vomiting, unspecified; R19.7 Diarrhea, unspecified; Z53.21 Procedure and treatment not carried out due to patient leaving prior to being seen by health care provider
CPT/HCPCS: 36415; 74176; 80053; 82010; 82962; 83690; 85025; 96361; 96374; 99281; J2405; J7030

== ENCOUNTER 2023-04-04 16:54 | Emergency (ER) | payer MEDICAID ==
[~2023-04-04] VITALS: Ht 154.9 cm; Wt 53.9 kg
[2023-04-04 17:28] LABS: Urine Bacteria FEW /hpf (None Seen); Urine Blood Negative /uL (Negative); Urine Mucus FEW (None Seen); Urine Specific Gravity 1.019 (1.001-1.035); Urine WBC 1 /hpf (0 - 5)
[2023-04-04] MEDS ORDERED: SODIUM CHLORIDE 0.9% 1,000 ML IV ONE (17:45)
[2023-04-04] MEDS ORDERED: DICYCLOMINE HCL (10MG/ML) 2 ML AMPULE IM ONE (17:45)
[2023-04-04] MEDS ORDERED: PROMETHAZINE HCL 25 MG/ML 1ML IM ONE (17:45)
[2023-04-04 17:47] LABS: Basophils # (auto) 0.1 10 ^3/uL (0-0.2); Eosinophils # (auto) 0 10 ^3/uL (0-0.8)
[2023-04-04 17:49] LABS: Basophils % (auto) 0.4 % (0.0-2.0); Hematocrit 44.9 % (36.0-46.0); Hemoglobin 15.2 g/dL (12.2-16.2); Lymphocytes # (auto) 1.5 10 ^3/uL (0.4-5.4); Lymphocytes % (auto) 10.1 % (10.0-50.0); Mean Corpuscular Hemoglobin 26.9 pg (28.0-32.0); Mean Corpuscular Hgb Conc. 33.8 g/dL (32.0-36.0); Mean Corpuscular Volume 79.5 fL (80.0-100.0); Monocytes # (auto) 0.7 10 ^3/uL (0-1.3); Monocytes % (auto) 4.5 % (0.0-12.0); Red Blood Cells 5.64 10^6/uL (4.0-5.20); Red Cell Distribution Width 15.6 % (11.8-14.3); White Blood Cell 15.3 10^3/uL (4.4-10.8)
[2023-04-04 18:06] LABS: BUN/Creatinine Ratio 8.5 (10.0-20.0); Calcium 10.1 mg/dL (8.5-10.1); Potassium 3.4 mmol/L (3.5-5.1)
[2023-04-04 18:09] LABS: Total Protein 8.1 g/dL (6.4-8.2)
[2023-04-04 18:20] VITALS: BP 166/94; PULSE 68; RESP 17; TEMP 97.4; O2SAT 98
== END 2023-04-04 22:16 | disposition home or self-care (01) ==
LOC: ER 16:54
DX: R10.13 Epigastric pain (principal); R11.2 Nausea with vomiting, unspecified; F17.210 Nicotine dependence, cigarettes, uncomplicated; F12.10 Cannabis abuse, uncomplicated; E11.9 Type 2 diabetes mellitus without complications; K21.9 Gastro-esophageal reflux disease without esophagitis; E78.5 Hyperlipidemia, unspecified; I10 Essential (primary) hypertension; Z90.49 Acquired absence of other specified parts of digestive tract; Z90.710 Acquired absence of both cervix and uterus; Z88.0 Allergy status to penicillin; Z88.2 Allergy status to sulfonamides
CPT/HCPCS: 36415; 80053; 81001; 85025; 96360; 96372; 99284; J0500; J2550; J7030

== ENCOUNTER 2023-05-24 10:20 | Emergency (ER) | payer OTHER, MEDICAID ==
[~2023-05-24] VITALS: Ht 152.4 cm; Wt 62.7 kg
[2023-05-24 10:51] LABS: Basophils # (auto) 0.1 10 ^3/uL (0-0.2); Basophils % (auto) 0.5 % (0.0-2.0); Eosinophils # (auto) 0 10 ^3/uL (0-0.8); Eosinophils % (auto) 0.1 % (0.0-7.0); Hematocrit 44.5 % (36.0-46.0); Lymphocytes # (auto) 1.8 10 ^3/uL (0.4-5.4); Lymphocytes % (auto) 10.9 % (10.0-50.0); Mean Corpuscular Hgb Conc. 33.7 g/dL (32.0-36.0); Mean Corpuscular Volume 80.2 fL (80.0-100.0); Monocytes # (auto) 0.9 10 ^3/uL (0-1.3); Monocytes % (auto) 5.6 % (0.0-12.0); Neutrophils # (auto) 13.7 10 ^3/uL (1.6-8.6); Neutrophils % (auto) 82.9 % (37.0-80.0); Nucleated Red Blood Cells % 0.1 %; Red Blood Cells 5.55 10^6/uL (4.0-5.20); Red Cell Distribution Width 15.6 % (11.8-14.3); White Blood Cell 16.5 10^3/uL (4.4-10.8)
[2023-05-24] MEDS ORDERED: SODIUM CHLORIDE 0.9% 1,000 ML IVB ONE (11:00)
[2023-05-24] MEDS ORDERED: PANTOPRAZOLE 40 MG/10 ML VIAL INJ IV ONE (11:00)
[2023-05-24] MEDS ORDERED: PROCHLORPERAZINE EDISYLATE 5 MG/ML 2ML VIAL IV ONE (11:00)
[2023-05-24] MEDS ORDERED: MORPHINE SULFATE 4 MG/ML SYR/VIAL IV ONE (11:00)
[2023-05-24 11:12] LABS: Alanine Aminotransferase 19 U/L (7-40); Albumin 5.4 g/dL (3.2-4.8); Alkaline Phosphatase 68 U/L (46-116); Anion Gap 16.8 (5-15); Aspartate Aminotransferase 20 U/L (13-40); BUN/Creatinine Ratio 17.1 (10.0-20.0); Bilirubin, Total 1.8 mg/dL (0.2-1.0); Blood Urea Nitrogen 14 mg/dL (9-23); Calcium 10.8 mg/dL (8.5-10.1); Carbon Dioxide 20.2 mmol/L (20-30); Chloride 103 mmol/L (98-107); Glucose 217 mg/dL (74-106); Lipase 59 U/L (12-53); Potassium 3.5 mmol/L (3.5-5.1); Sodium 140 mmol/L (136-145); Total Protein 8.3 g/dL (5.7-8.2)
[2023-05-24 11:15] LABS: Urine Bacteria FEW /hpf (None Seen); Urine Blood Negative /uL (Negative); Urine Clarity HAZY (Clear); Urine Color Yellow (Yellow); Urine Hyaline Cast MANY /lpf (0 - 2); Urine Mucus MODERATE (None Seen); Urine Protein, UAD 2+ (Negative); Urine Specific Gravity 1.027 (1.001-1.035); Urine Urobilinogen Normal (Negative); Urine WBC 6 /hpf (0 - 5)
[2023-05-24 11:24] VITALS: TEMP 98; O2SAT 99
[2023-05-24 11:42] VITALS: BP 95/67; PULSE 63; RESP 14
[2023-05-24] MEDS ORDERED: ZOFR4T PO (12:19)
[2023-05-24] MEDS ORDERED: PANT40TA2 PO ×2 (12:19)
== END 2023-05-24 12:48 | disposition home or self-care (01) ==
LOC: ER 10:20 → EDBD 10:20 → ER 12:48
DX: R11.10 Vomiting, unspecified (principal); K21.9 Gastro-esophageal reflux disease without esophagitis; E11.9 Type 2 diabetes mellitus without complications; E78.5 Hyperlipidemia, unspecified; I10 Essential (primary) hypertension; F17.210 Nicotine dependence, cigarettes, uncomplicated; F12.90 Cannabis use, unspecified, uncomplicated; Z90.710 Acquired absence of both cervix and uterus; Z88.0 Allergy status to penicillin; Z90.49 Acquired absence of other specified parts of digestive tract; Z88.2 Allergy status to sulfonamides; Z88.8 Allergy status to other drugs, medicaments and biological substances; Z79.899 Other long term (current) drug therapy; Z79.84 Long term (current) use of oral hypoglycemic drugs
CPT/HCPCS: 36415; 74176; 80053; 81001; 83690; 85025; 96361; 96374; 96375; 99285; C9113; J0780; J2270; J7030

== ENCOUNTER 2023-10-25 12:53 | Inpatient (IN) | payer OTHER, MEDICAID ==
[~2023-10-25] VITALS: Ht 154.9 cm; Wt 60.7 kg
[~2023-10-25 12:53] MED LIST changes: +ZOFR4T PO
[2023-10-25 13:30] LABS: Eosinophils # (auto) 0 10 ^3/uL (0-0.8); Nucleated Red Blood Cells % 0.1 %
[2023-10-25 13:32] LABS: Basophils # (auto) 0.1 10 ^3/uL (0-0.2); Basophils % (auto) 0.3 % (0.0-2.0); Eosinophils % (auto) 0.2 % (0.0-7.0); Hematocrit 44.8 % (36.0-46.0); Lymphocytes # (auto) 2.1 10 ^3/uL (0.4-5.4); Lymphocytes % (auto) 11.6 % (10.0-50.0); Mean Corpuscular Hemoglobin 26.5 pg (28.0-32.0); Mean Corpuscular Hgb Conc. 33.5 g/dL (32.0-36.0); Mean Corpuscular Volume 78.9 fL (80.0-100.0); Monocytes # (auto) 1.1 10 ^3/uL (0-1.3); Neutrophils # (auto) 14.6 10 ^3/uL (1.6-8.6); Neutrophils % (auto) 81.9 % (37.0-80.0); Red Blood Cells 5.68 10^6/uL (4.0-5.20); Red Cell Distribution Width 14.7 % (11.8-14.3); White Blood Cell 17.8 10^3/uL (4.4-10.8)
[2023-10-25 13:47] LABS: Alanine Aminotransferase 22 U/L (7-40); Albumin 5.3 g/dL (3.2-4.8); Alkaline Phosphatase 81 U/L (46-116); Anion Gap 17 (5-15); Aspartate Aminotransferase 19 U/L (13-40); BUN/Creatinine Ratio 9.6 (10.0-20.0); Bilirubin, Total 1.8 mg/dL (0.2-1.0); Blood Urea Nitrogen 10 mg/dL (9-23); Calcium 10.5 mg/dL (8.5-10.1); Carbon Dioxide 22 mmol/L (20-30); Chloride 98 mmol/L (98-107); Glucose 262 mg/dL (74-106); Potassium 2.9 mmol/L (3.5-5.1); Sodium 137 mmol/L (136-145); Total Protein 7.6 g/dL (5.7-8.2)
[2023-10-25] MEDS: PROMETHAZINE HCL 25 MG/ML 1ML IV ONE (14:53)
[2023-10-25] MEDS: MORPHINE SULFATE 4 MG/ML SYR/VIAL IV ONE (14:53)
[2023-10-25] MEDS: PANTOPRAZOLE 40mg/50ML NS AE 50 ML IV ONE (14:54)
[2023-10-25 15:00] VITALS: PULSE 72; RESP 17; O2SAT 98
[2023-10-25 15:16] LABS: INR 1.06 (0.9-1.15); Partial Thromboplastin Time 23.7 SEC (24.5-34.5); Prothrombin Time 11.1 sec (9.3-11.8)
[2023-10-25] MEDS: ONDANSETRON HCL 4 MG/2 ML VIAL IV ONE (15:36)
[2023-10-25] MEDS: NITROGLYCERIN 50MG/250ML 250 ML IV ONE (15:36)
[2023-10-25] MEDS ORDERED: ACETAMINOPHEN 325 MG TAB PO PRN (17:00)
[2023-10-25] MEDS ORDERED: DOCUSATE SOD 100 MG CAP PO PRN (17:00)
[2023-10-25] MEDS ORDERED: DEXTROSE (50%) 50ML SYRG IV PRN (17:00)
[2023-10-25] MEDS ORDERED: NITROGLYCERIN 0.4 MG SL TAB SL PRN (17:00)
[2023-10-25 17:19] LABS: Triglycerides 188 mg/dL (< 150)
[2023-10-25 17:20] LABS: LDL Cholesterol 128 mg/dL (< 100)
[2023-10-25] MEDS: SODIUM CHLORIDE 0.9% 2,000 ML IV ONE (17:20)
[2023-10-25 17:21] LABS: Cholesterol 214 mg/dL (< 200); HDL Cholesterol 60 mg/dL (40-59)
[2023-10-25] MEDS: SODIUM CHLORIDE 0.9% 1,000 ML IV SCH (17:21)
[2023-10-25] MEDS: POTASSIUM EFFERVESENT TAB 25 MEQ PO ONE (17:31)
[2023-10-25] MEDS: POTASSIUM CHL 20MEQ/100ML 100 ML IV ONE (17:42)
[2023-10-25] MEDS: ACCU-CHEK COMFORT CURVE STRIP VI SCH (17:50)
[2023-10-25] MEDS: InsuLIN REG 1unit/0.01ml Soln (100units/ml) SC SCH (17:52)
[2023-10-25] MEDS: SUCRALFATE 1 GM TAB PO SCH (18:00)
[2023-10-25] MEDS: metroNIDAZOLE 500MG/100ML 100 ML IV ONE (18:27)
[2023-10-25] MEDS: cefTRIAXone 1GM/50ML D5W 50 ML IV ONE (18:27)
[2023-10-25] MEDS: ONDANSETRON HCL 4 MG/2 ML VIAL IV PRN (19:37)
[2023-10-25] MEDS: MORPHINE SULFATE INJ 2 MG/ml SYRG IV PRN (19:38)
[2023-10-25 19:40] VITALS: PULSE 74; RESP 13; O2SAT 100
[2023-10-25] MEDS: OCTREOTIDE ACETATE 100 MCG in SODIUM CHL 0.9% 50 ML IV ONE (19:49)
[2023-10-25] MEDS: PANTOPRAZOLE 80 MG in SODIUM CHL 0.9% 100 ML IV ONE (20:03)
[2023-10-25] MEDS: OCTREOTIDE ACETATE 500 MCG in SODIUM CHL 0.9% 99 ML IV SCH (20:04)
[2023-10-26 06:17] LABS: Basophils # (auto) 0.1 10 ^3/uL (0-0.2); Eosinophils # (auto) 0 10 ^3/uL (0-0.8); Mean Corpuscular Hemoglobin 26.6 pg (28.0-32.0); Neutrophils % (auto) 73.8 % (37.0-80.0)
[2023-10-26 06:20] LABS: Basophils % (auto) 0.5 % (0.0-2.0); Eosinophils % (auto) 0.1 % (0.0-7.0); Hematocrit 38.8 % (36.0-46.0); Hemoglobin 13.2 g/dL (12.2-16.2); Lymphocytes # (auto) 2.5 10 ^3/uL (0.4-5.4); Lymphocytes % (auto) 17.9 % (10.0-50.0); Mean Corpuscular Volume 78.4 fL (80.0-100.0); Monocytes % (auto) 7.7 % (0.0-12.0); Neutrophils # (auto) 10.1 10 ^3/uL (1.6-8.6); Red Blood Cells 4.95 10^6/uL (4.0-5.20); Red Cell Distribution Width 14.5 % (11.8-14.3); White Blood Cell 13.7 10^3/uL (4.4-10.8)
[2023-10-26] MEDS: metroNIDAZOLE 500MG/100ML 100 ML IV SCH (06:22)
[2023-10-26 06:31] LABS: Alanine Aminotransferase 23 U/L (7-40); Albumin 4.3 g/dL (3.2-4.8); Alkaline Phosphatase 67 U/L (46-116); Anion Gap 10 (5-15); Aspartate Aminotransferase 28 U/L (13-40); BUN/Creatinine Ratio 12.3 (10.0-20.0); Bilirubin, Total 1.9 mg/dL (0.2-1.0); Blood Urea Nitrogen 10 mg/dL (9-23); Calcium 8.5 mg/dL (8.7-10.4); Carbon Dioxide 25 mmol/L (20-30); Chloride 106 mmol/L (98-107); Glucose 206 mg/dL (74-106); Potassium 2.9 mmol/L (3.5-5.1); Sodium 141 mmol/L (136-145); Total Protein 6.5 g/dL (5.7-8.2)
[2023-10-26 07:26] LABS: Urine Bacteria FEW /hpf (None Seen); Urine Blood Negative /uL (Negative); Urine Clarity HAZY (Clear); Urine Color Yellow (Yellow); Urine Hyaline Cast FEW /lpf (0 - 2); Urine Mucus FEW (None Seen); Urine Protein, UAD TRACE (Negative); Urine Specific Gravity 1.016 (1.001-1.035); Urine Urobilinogen Normal (Negative); Urine WBC 1 /hpf (0 - 5)
[2023-10-26 07:35] VITALS: O2SAT 100
[2023-10-26] MEDS ORDERED: diphenhdrAMINE HCL 25 MG CAP PO ONE (08:00)
[2023-10-26] MEDS: diphenhdrAMINE HCL 50 MG/1 ML VL IV ONE (09:04)
[2023-10-26] MEDS: cefTRIAXone 1GM/50ML D5W 50 ML IV SCH (09:42)
[2023-10-26] MEDS: CHOLECALCIFEROL (VITD3) 2,000 UNIT CAP/TAB PO SCH (09:46)
[2023-10-26] MEDS: LISINOPRIL 10 MG TAB PO SCH (09:46)
[2023-10-26] MEDS: POTASSIUM CHLORIDE 80 MEQ, LIDOCAINE 1% (LOCAL ANESTH.) 6 ML in SODIUM CHL 0.9% 500 ML IV ONE (10:30)
[2023-10-26] MEDS ORDERED: LIDOCAINE VISCOUS 2% 15ML UD ONE (10:34)
[2023-10-26] MEDS ORDERED: FLUMAZENIL 0.1 MG/ML INJ 10ML MDV IV ONE (10:36)
[2023-10-26] MEDS ORDERED: NALOXONE HCL 0.4 MG/ML VIAL ONE (10:36)
[2023-10-26] MEDS ORDERED: SODIUM CHLORIDE LOCK 10 ML ONE (10:36)
[2023-10-26 10:55] VITALS: RESP 17; O2SAT 98
[2023-10-26] MEDS: PANTOPRAZOLE 40 MG/10 ML VIAL INJ IV ONE (11:01)
[2023-10-26] MEDS: fentaNYL CITRATE 100 MCG/2 ML VL ONE (11:14)
[2023-10-26] MEDS: MIDAZOLAM HCL 5 MG/ML-1ML VIAL ONE (11:14)
[2023-10-26] MEDS: diphenhdrAMINE HCL 50 MG/1 ML VL ONE (11:18)
[2023-10-26] MEDS: MAGNESIUM SULFATE 1GM/100ML 100 ML IV ONE (11:48)
[2023-10-26 11:52] LABS: CRP High Sensitivity 0.82 mg/dL (<1.0)
[2023-10-26 12:06] LABS: Magnesium 1.8 mg/dL (1.6-2.6)
[2023-10-26] MEDS: NYSTATIN (MOUTH-THROAT) 500,000 UNITS/5 ML SUSP MT SCH (12:14)
[2023-10-26] MEDS: FLUCONAZOLE 100 MG TAB PO ONE ×2 (12:14→21:59)
[2023-10-26] MEDS: hydrALAZINE HCL 20 MG/ML VL IV PRN (14:17)
[2023-10-26 15:09] LABS: % Iron Saturation 61.4 % (15-50)
[2023-10-26 19:35] VITALS: PULSE 69; RESP 14; O2SAT 100
[2023-10-26] MEDS: PANTOPRAZOLE 40 MG/10 ML VIAL INJ IV SCH (21:34)
[2023-10-26] MEDS ORDERED: FLUCONAZOLE 100 MG TAB PO SCH (22:00)
[2023-10-27 00:26] VITALS: PULSE 63; RESP 13; O2SAT 98
[2023-10-27 06:33] LABS: Alanine Aminotransferase 21 U/L (7-40); Anion Gap 7 (5-15); Calcium 8.5 mg/dL (8.7-10.4); Carbon Dioxide 27 mmol/L (20-30); Chloride 106 mmol/L (98-107); Glucose 159 mg/dL (74-106); Magnesium 1.6 mg/dL (1.6-2.6); Potassium 3.4 mmol/L (3.5-5.1); Sodium 140 mmol/L (136-145)
[2023-10-27 06:35] LABS: Albumin 3.7 g/dL (3.2-4.8); Aspartate Aminotransferase 18 U/L (13-40); Bilirubin, Total 1.5 mg/dL (0.2-1.0); Total Protein 5.5 g/dL (5.7-8.2)
[2023-10-27 06:37] LABS: BUN/Creatinine Ratio 8.1 (10.0-20.0); Blood Urea Nitrogen < 5 mg/dL (9-23)
[2023-10-27 06:57] LABS: Alkaline Phosphatase 56 U/L (46-116)
[2023-10-27 06:58] LABS: Basophils # (auto) 0.1 10 ^3/uL (0-0.2); Eosinophils # (auto) 0.2 10 ^3/uL (0-0.8); Eosinophils % (auto) 1.8 % (0.0-7.0); Monocytes # (auto) 0.6 10 ^3/uL (0-1.3); Neutrophils # (auto) 4.6 10 ^3/uL (1.6-8.6); Nucleated Red Blood Cells % 0.1 %
[2023-10-27 06:59] LABS: Basophils % (auto) 1.6 % (0.0-2.0); Hemoglobin 12.2 g/dL (12.2-16.2); Lymphocytes # (auto) 3.3 10 ^3/uL (0.4-5.4); Lymphocytes % (auto) 37.7 % (10.0-50.0); Mean Corpuscular Hemoglobin 26.5 pg (28.0-32.0); Mean Corpuscular Hgb Conc. 32.9 g/dL (32.0-36.0); Mean Corpuscular Volume 80.4 fL (80.0-100.0); Monocytes % (auto) 6.4 % (0.0-12.0); Neutrophils % (auto) 52.5 % (37.0-80.0); Red Cell Distribution Width 14.3 % (11.8-14.3); White Blood Cell 8.7 10^3/uL (4.4-10.8)
[2023-10-27 07:13] LABS: CRP High Sensitivity 0.34 mg/dL (<1.0)
[2023-10-27 07:45] VITALS: PULSE 66; RESP 15; O2SAT 99
[2023-10-27] MEDS: POTASSIUM CHL 20 Meq TABLET PO ONE (07:45)
[2023-10-27] MEDS: MAGNESIUM SULFATE 1GM/100ML 100 ML IV SCH (07:45)
[2023-10-27] MEDS: DICYCLOMINE HCL (10MG/ML) 2 ML AMPULE IM ONE (09:06)
[2023-10-27] MEDS: diphenhdrAMINE HCL 50 MG/1 ML VL IV ONE (09:06)
[2023-10-27] MEDS ORDERED: FLUCONAZOLE 100 MG TAB PO SCH (10:00)
[2023-10-27] MEDS: ONDANSETRON HCL 4 MG/2 ML VIAL IV ONE (11:41)
[2023-10-27] MEDS: POTASSIUM CHLORIDE 40 MEQ, LIDOCAINE 1% (LOCAL ANESTH.) 4 ML in SODIUM CHL 0.9% 250 ML IV ONE (12:00)
[2023-10-27] MEDS: FLUCONAZOLE 200MG/100ML 100 ML IV ONE (14:37)
[2023-10-27] MEDS: DICYCLOMINE HCL (10MG/ML) 2 ML AMPULE IM PRN (15:31)
[2023-10-27 20:26] VITALS: PULSE 63; RESP 13; O2SAT 98
[2023-10-27 22:27] LABS: Amphetamine Screen, Urine Neg (NEGATIVE); Barbiturate Scree,Urine Neg (NEGATIVE); Benzodiazephine Screen, Urine Pos (NEGATIVE); Cannabinoid Screen, Urine Pos (NEGATIVE); Cocaine Screen, Urine Neg (NEGATIVE); Opiate Scree,Urine Neg (NEGATIVE); Phencyclidine Screen, Urine Neg (NEGATIVE)
[2023-10-28] VITALS (7 sets, daily range): BP systolic 99–123; BP diastolic 59–78; PULSE 55–63; RESP 15–18; TEMP 36.8; O2SAT 96–99
[2023-10-28] MEDS ORDERED: ZOFR4T PO (05:45)
[2023-10-28 06:26] LABS: Basophils # (auto) 0.1 10 ^3/uL (0-0.2); Basophils % (auto) 1.1 % (0.0-2.0); Eosinophils # (auto) 0.2 10 ^3/uL (0-0.8); Eosinophils % (auto) 1.9 % (0.0-7.0); Monocytes # (auto) 0.7 10 ^3/uL (0-1.3); Monocytes % (auto) 6.7 % (0.0-12.0); Nucleated Red Blood Cells % 0.1 %
[2023-10-28 06:27] LABS: Hematocrit 38.6 % (36.0-46.0); Hemoglobin 13.3 g/dL (12.2-16.2); Lymphocytes % (auto) 40.4 % (10.0-50.0); Mean Corpuscular Hemoglobin 27.1 pg (28.0-32.0); Mean Corpuscular Hgb Conc. 34.6 g/dL (32.0-36.0); Mean Corpuscular Volume 78.4 fL (80.0-100.0); Neutrophils % (auto) 49.9 % (37.0-80.0); Red Blood Cells 4.93 10^6/uL (4.0-5.20); Red Cell Distribution Width 14.3 % (11.8-14.3); White Blood Cell 9.9 10^3/uL (4.4-10.8)
[2023-10-28 06:42] LABS: Alanine Aminotransferase 22 U/L (7-40); Alkaline Phosphatase 59 U/L (46-116); Anion Gap 7 (5-15); Aspartate Aminotransferase 12 U/L (13-40); BUN/Creatinine Ratio 9.7 (10.0-20.0); Blood Urea Nitrogen 7 mg/dL (9-23); Calcium 8.8 mg/dL (8.7-10.4); Carbon Dioxide 25 mmol/L (20-30); Chloride 105 mmol/L (98-107); Glucose 132 mg/dL (74-106); Potassium 3.1 mmol/L (3.5-5.1); Sodium 137 mmol/L (136-145)
[2023-10-28 06:43] LABS: Bilirubin, Total 1.2 mg/dL (0.2-1.0)
[2023-10-28 07:09] LABS: CRP High Sensitivity 0.31 mg/dL (<1.0)
[2023-10-28] MEDS ORDERED: FLUCONAZOLE 200MG/100ML 100 ML IV SCH (10:00)
[2023-10-28] MEDS: SOD CHL 0.9%/ KCL 20MEQ 1,000 ML IV SCH (10:00)
[2023-10-28] MEDS: FLUCONAZOLE 100 MG TAB PO ONE (12:11)
[2023-10-28] MEDS ORDERED: NYS5LQ MT (13:23)
[2023-10-28] MEDS ORDERED: FLUC200T50 PO (13:23)
[2023-10-29] MEDS ORDERED: FLUCONAZOLE 100 MG TAB PO SCH (10:00)
== END 2023-10-28 18:50 | disposition home or self-care (01) | DRG 377 ==
LOC: ER 12:53 → EDBD 12:53 → TELE 16:53 → TELE-EAST 10-27 22:00
PROVIDERS: ADMIT Internal Medicine Geriatric Medicine; ATTEND Internal Medicine Geriatric Medicine
PROC: 0DB68ZX Excision of Stomach, Via Natural or Artificial Opening Endoscopic, Diagnostic (ICD-10-PCS; 2023-10-26)
PROC: 0DB98ZX Excision of Duodenum, Via Natural or Artificial Opening Endoscopic, Diagnostic (ICD-10-PCS; principal; 2023-10-26 10:45)
DX: K29.71 Gastritis, unspecified, with bleeding (principal); J96.01 Acute respiratory failure with hypoxia; R65.10 Systemic inflammatory response syndrome (SIRS) of non-infectious origin without acute organ dysfunction; B37.81 Candidal esophagitis; K21.01 Gastro-esophageal reflux disease with esophagitis, with bleeding; E11.65 Type 2 diabetes mellitus with hyperglycemia; I10 Essential (primary) hypertension; E03.9 Hypothyroidism, unspecified; E80.6 Other disorders of bilirubin metabolism; E83.52 Hypercalcemia; E87.6 Hypokalemia; E78.2 Mixed hyperlipidemia; Z90.710 Acquired absence of both cervix and uterus; Z88.0 Allergy status to penicillin; Z88.2 Allergy status to sulfonamides; Z88.8 Allergy status to other drugs, medicaments and biological substances; Z79.899 Other long term (current) drug therapy; Z83.3 Family history of diabetes mellitus
CPT/HCPCS: 36415; 71045; 74176; 76705; 80053; 80061; 80307; 81001; 82150; 82270; 82306; 82728; 82962; 83036; 83540; 83550; 83690; 83735; 83970; 84443; 84484; 84702; 85025; 85610; 85730; 86141; 86703; 86850; 86900; 86901; 87040; 87086; 87177; 93005; 93306; 96365; 96367; 96375; 99291; C9113; G0378; J1450; J1815; J2001; J2250; J2405; J3480; J3490

== ENCOUNTER 2023-11-29 17:44 | Inpatient (IN) | payer MEDICAID, OTHER ==
[~2023-11-29] VITALS: Ht 152.4 cm; Wt 59.9 kg
[~2023-11-29 17:44] MED LIST changes: -CHOL500023 PO; +FLUC200T50 PO; +NYS5LQ MT; -ONDA-144 PO; -SUCR1TAB22 OR; -ZOFR4T PO
[2023-11-29 20:20] LABS: Basophils # (auto) 0.1 10 ^3/uL (0-0.2); Basophils % (auto) 0.5 % (0.0-2.0); Eosinophils # (auto) 0 10 ^3/uL (0-0.8); Hematocrit 44.1 % (36.0-46.0); Hemoglobin 14.4 g/dL (12.2-16.2); Lymphocytes # (auto) 1.5 10 ^3/uL (0.4-5.4); Lymphocytes % (auto) 8.3 % (10.0-50.0); Mean Corpuscular Hemoglobin 26.1 pg (28.0-32.0); Mean Corpuscular Hgb Conc. 32.7 g/dL (32.0-36.0); Mean Corpuscular Volume 79.8 fL (80.0-100.0); Monocytes # (auto) 0.6 10 ^3/uL (0-1.3); Monocytes % (auto) 3.6 % (0.0-12.0); Neutrophils # (auto) 15.8 10 ^3/uL (1.6-8.6); Neutrophils % (auto) 87.6 % (37.0-80.0); Nucleated Red Blood Cells % 0.1 %; Red Blood Cells 5.53 10^6/uL (4.0-5.20); Red Cell Distribution Width 14.9 % (11.8-14.3)
[2023-11-29 20:49] LABS: Alanine Aminotransferase 41 U/L (7-40); Albumin 5.2 g/dL (3.2-4.8); Alkaline Phosphatase 81 U/L (46-116); Anion Gap 19 (5-15); Aspartate Aminotransferase 19 U/L (13-40); BUN/Creatinine Ratio 8.1 (10.0-20.0); Bilirubin, Total 0.7 mg/dL (0.2-1.0); Blood Urea Nitrogen 7 mg/dL (9-23); Carbon Dioxide 19 mmol/L (20-30); Chloride 107 mmol/L (98-107); Glucose 239 mg/dL (74-106); Lipase 39 U/L (12-53); Potassium 3.4 mmol/L (3.5-5.1); Sodium 145 mmol/L (136-145); Total Protein 7.7 g/dL (5.7-8.2)
[2023-11-29] MEDS: PANTOPRAZOLE 40 MG/10 ML VIAL INJ IV ONE (21:30)
[2023-11-29 22:05] LABS: Base Excess -7.2 mmol/L (-2.0-2.0)
[2023-11-29] MEDS ORDERED: DEXTROSE (50%) 50ML SYRG IV PRN (22:30)
[2023-11-29] MEDS ORDERED: DOCUSATE SOD 100 MG CAP PO PRN (22:30)
[2023-11-29] MEDS ORDERED: ACETAMINOPHEN 325 MG TAB PO PRN (22:30)
[2023-11-29 22:34] LABS: INR 1.09 (0.9-1.15); Partial Thromboplastin Time 23.4 SEC (24.5-34.5); Prothrombin Time 11.4 sec (9.3-11.8)
[2023-11-29] MEDS ORDERED: NITROGLYCERIN 0.4 MG SL TAB SL PRN (23:45)
[2023-11-29] MEDS: ONDANSETRON HCL 4 MG/2 ML VIAL IV ONE (23:47)
[2023-11-29] MEDS: SODIUM CHLORIDE 0.9% 1,000 ML IV ONE (23:47)
[2023-11-29] MEDS: levoFLOXacin 500MG 100 ML IV ONE (23:48)
[2023-11-29] MEDS: MORPHINE SULFATE 4 MG/ML SYR/VIAL IV ONE (23:50)
[2023-11-30] MEDS: ACCU-CHEK COMFORT CURVE STRIP VI SCH ×2 (01:04→12:00)
[2023-11-30] MEDS: InsuLIN REG 1unit/0.01ml Soln (100units/ml) SC SCH ×2 (01:07→12:10)
[2023-11-30 01:27] VITALS: PULSE 90; RESP 20; O2SAT 96
[2023-11-30] MEDS: ONDANSETRON HCL 4 MG/2 ML VIAL IV PRN (02:49)
[2023-11-30] MEDS: LACTATED RINGER'S 1,000 ML IV SCH (02:50)
[2023-11-30 03:26] LABS: Urine Bacteria FEW /hpf (None Seen); Urine Blood Negative /uL (Negative); Urine Clarity Clear (Clear); Urine Color Colorless (Yellow); Urine Protein, UAD TRACE (Negative); Urine Specific Gravity 1.018 (1.001-1.035); Urine Urobilinogen Normal (Negative); Urine WBC 1 /hpf (0 - 5)
[2023-11-30] MEDS: hydrALAZINE HCL 20 MG/ML VL IV PRN (03:27)
[2023-11-30 03:34] LABS: Amphetamine Screen, Urine Neg (NEGATIVE); Benzodiazephine Screen, Urine Neg (NEGATIVE)
[2023-11-30 03:35] LABS: Barbiturate Scree,Urine Neg (NEGATIVE); Cannabinoid Screen, Urine Neg (NEGATIVE); Cocaine Screen, Urine Neg (NEGATIVE); Opiate Scree,Urine Pos (NEGATIVE); Phencyclidine Screen, Urine Neg (NEGATIVE)
[2023-11-30] MEDS: MORPHINE SULFATE INJ 2 MG/ml SYRG IV PRN ×2 (03:59→12:13)
[2023-11-30 05:54] LABS: Basophils # (auto) 0 10 ^3/uL (0-0.2); Basophils % (auto) 0.3 % (0.0-2.0); Eosinophils # (auto) 0 10 ^3/uL (0-0.8); Lymphocytes # (auto) 1.3 10 ^3/uL (0.4-5.4); Red Cell Distribution Width 15.2 % (11.8-14.3)
[2023-11-30 05:56] LABS: Hematocrit 41.1 % (36.0-46.0); Hemoglobin 13.4 g/dL (12.2-16.2); Lymphocytes % (auto) 8.8 % (10.0-50.0); Mean Corpuscular Hgb Conc. 32.6 g/dL (32.0-36.0); Mean Corpuscular Volume 79.9 fL (80.0-100.0); Monocytes # (auto) 0.8 10 ^3/uL (0-1.3); Monocytes % (auto) 5.8 % (0.0-12.0); Neutrophils # (auto) 12.3 10 ^3/uL (1.6-8.6); Neutrophils % (auto) 85.1 % (37.0-80.0); Red Blood Cells 5.14 10^6/uL (4.0-5.20); White Blood Cell 14.4 10^3/uL (4.4-10.8)
[2023-11-30 06:05] LABS: Alanine Aminotransferase 35 U/L (7-40); Albumin 4.7 g/dL (3.2-4.8); Alkaline Phosphatase 72 U/L (46-116); Anion Gap 17 (5-15); Aspartate Aminotransferase 16 U/L (13-40); BUN/Creatinine Ratio 10.1 (10.0-20.0); Bilirubin, Total 0.7 mg/dL (0.2-1.0); Blood Urea Nitrogen 9 mg/dL (9-23); Calcium 9.5 mg/dL (8.7-10.4); Carbon Dioxide 19 mmol/L (20-30); Chloride 111 mmol/L (98-107); Glucose 224 mg/dL (74-106); Potassium 3.7 mmol/L (3.5-5.1); Sodium 147 mmol/L (136-145)
[2023-11-30] MEDS: SUCRALFATE 1 GM TAB PO SCH (07:02)
[2023-11-30] MEDS: levoFLOXacin 500MG 100 ML IV SCH (09:19)
[2023-11-30] MEDS: PANTOPRAZOLE 40 MG/10 ML VIAL INJ IV SCH (09:20)
[2023-11-30] MEDS ORDERED: DEXTROSE (50%) 50ML SYRG IV PRN (11:30)
[2023-11-30] MEDS: NYSTATIN (MOUTH-THROAT) 500,000 UNITS/5 ML SUSP MT SCH (12:00)
[2023-11-30] MEDS: diphenhdrAMINE HCL 50 MG/1 ML VL IV PRN (15:52)
[2023-11-30 19:30] VITALS: PULSE 92; RESP 13; O2SAT 99
[2023-11-30] MEDS: ATORVASTATIN 20 MG TAB PO SCH (22:16)
[2023-12-01 04:43] LABS: Basophils # (auto) 0.1 10 ^3/uL (0-0.2); Basophils % (auto) 0.7 % (0.0-2.0); Eosinophils # (auto) 0 10 ^3/uL (0-0.8); Eosinophils % (auto) 0.3 % (0.0-7.0); Hematocrit 36.8 % (36.0-46.0); Hemoglobin 12.2 g/dL (12.2-16.2); Lymphocytes # (auto) 3.5 10 ^3/uL (0.4-5.4); Lymphocytes % (auto) 27.5 % (10.0-50.0); Mean Corpuscular Hemoglobin 26.1 pg (28.0-32.0); Mean Corpuscular Hgb Conc. 33.1 g/dL (32.0-36.0); Mean Corpuscular Volume 78.7 fL (80.0-100.0); Monocytes # (auto) 0.9 10 ^3/uL (0-1.3); Monocytes % (auto) 6.9 % (0.0-12.0); Neutrophils # (auto) 8.3 10 ^3/uL (1.6-8.6); Neutrophils % (auto) 64.6 % (37.0-80.0); Red Blood Cells 4.67 10^6/uL (4.0-5.20); Red Cell Distribution Width 14.8 % (11.8-14.3); White Blood Cell 12.9 10^3/uL (4.4-10.8)
[2023-12-01 04:58] LABS: Alanine Aminotransferase 35 U/L (7-40); Albumin 4.1 g/dL (3.2-4.8); Alkaline Phosphatase 61 U/L (46-116); Anion Gap 8 (5-15); Aspartate Aminotransferase 27 U/L (13-40); BUN/Creatinine Ratio 11.5 (10.0-20.0); Blood Urea Nitrogen 9 mg/dL (9-23); Calcium 9.3 mg/dL (8.7-10.4); Carbon Dioxide 29 mmol/L (20-30); Chloride 108 mmol/L (98-107); Glucose 117 mg/dL (74-106); Potassium 3.5 mmol/L (3.5-5.1); Sodium 145 mmol/L (136-145)
[2023-12-01 04:59] LABS: Total Protein 6.1 g/dL (5.7-8.2)
[2023-12-01 07:30] VITALS: PULSE 89; RESP 12; O2SAT 95
[2023-12-01] MEDS: HYDROcodone-ACET 5/325MG TAB PO PRN (12:27)
[2023-12-01] MEDS: KETOROLAC TROMETH 30 MG/ML 1ML VIAL IV PRN (12:53)
[2023-12-01 19:55] VITALS: PULSE 72; RESP 16; O2SAT 97
[2023-12-02] VITALS (8 sets, daily range): BP systolic 118–150; BP diastolic 18–97; PULSE 65–93; RESP 16–20; TEMP 97.9–98.6; O2SAT 96–100
[2023-12-02 06:32] LABS: Basophils # (auto) 0.1 10 ^3/uL (0-0.2); Eosinophils # (auto) 0 10 ^3/uL (0-0.8); Hemoglobin 13.3 g/dL (12.2-16.2); Monocytes # (auto) 0.6 10 ^3/uL (0-1.3); Red Cell Distribution Width 14.4 % (11.8-14.3)
[2023-12-02 06:38] LABS: Basophils % (auto) 1.1 % (0.0-2.0); Eosinophils % (auto) 0.4 % (0.0-7.0); Hematocrit 39.6 % (36.0-46.0); Lymphocytes # (auto) 2.1 10 ^3/uL (0.4-5.4); Lymphocytes % (auto) 23.8 % (10.0-50.0); Mean Corpuscular Hemoglobin 26.3 pg (28.0-32.0); Mean Corpuscular Hgb Conc. 33.6 g/dL (32.0-36.0); Mean Corpuscular Volume 78.4 fL (80.0-100.0); Monocytes % (auto) 6.2 % (0.0-12.0); Neutrophils # (auto) 6.1 10 ^3/uL (1.6-8.6); Neutrophils % (auto) 68.5 % (37.0-80.0); Red Blood Cells 5.05 10^6/uL (4.0-5.20)
[2023-12-03 01:00] VITALS: BP 133/101; PULSE 90; RESP 17; TEMP 98.5; O2SAT 98
[2023-12-03 05:00] VITALS: BP 119/96; PULSE 94; RESP 18; TEMP 98.4; O2SAT 98
[2023-12-03 06:04] LABS: Basophils # (auto) 0.1 10 ^3/uL (0-0.2); Eosinophils # (auto) 0.2 10 ^3/uL (0-0.8); Hemoglobin 13.7 g/dL (12.2-16.2); Monocytes # (auto) 0.6 10 ^3/uL (0-1.3); Nucleated Red Blood Cells % 0.1 %
[2023-12-03 06:07] LABS: Basophils % (auto) 1.1 % (0.0-2.0); Eosinophils % (auto) 1.9 % (0.0-7.0); Hematocrit 40.3 % (36.0-46.0); Lymphocytes % (auto) 40.6 % (10.0-50.0); Mean Corpuscular Hemoglobin 26.6 pg (28.0-32.0); Mean Corpuscular Hgb Conc. 34.1 g/dL (32.0-36.0); Mean Corpuscular Volume 78.1 fL (80.0-100.0); Neutrophils % (auto) 50.4 % (37.0-80.0); Red Blood Cells 5.16 10^6/uL (4.0-5.20); Red Cell Distribution Width 14.3 % (11.8-14.3)
[2023-12-03 06:08] LABS: Anion Gap 6 (5-15); Carbon Dioxide 30 mmol/L (20-30); Chloride 104 mmol/L (98-107); Potassium 3.3 mmol/L (3.5-5.1); Sodium 140 mmol/L (136-145)
[2023-12-03 06:09] LABS: Calcium 9.7 mg/dL (8.7-10.4)
[2023-12-03 06:14] LABS: BUN/Creatinine Ratio 9.8 (10.0-20.0); Blood Urea Nitrogen 8 mg/dL (9-23); Glucose 95 mg/dL (74-106)
[2023-12-03 08:10] VITALS: PULSE 96; RESP 15; O2SAT 99
[2023-12-03 09:00] VITALS: BP 130/100; PULSE 96; RESP 15; TEMP 97.7; O2SAT 99
[2023-12-03] MEDS ORDERED: SUCR1TAB22 PO (10:10)
[2023-12-03] MEDS ORDERED: PANT40TA2 PO (10:10)
[2023-12-03] MEDS ORDERED: NYS5LQ MT (10:11)
[2023-12-03 10:48] VITALS: BP 130/101; PULSE 96; RESP 15; TEMP 97.7; O2SAT 99
[2023-12-03] MEDS: POTASSIUM CHL 20 Meq TABLET PO ONE (11:17)
== END 2023-12-03 14:50 | disposition home or self-care (01) | DRG 242 ==
LOC: ER 17:44 → EDBD 17:44 → EDUNIT# 17:44 → TELE 23:36 → TELE-CENTR 12-01 23:14 → CENTRAL 12-02 11:11 → EAST 12-03 12:45
PROVIDERS: ADMIT Nurse Practitioner Family; ATTEND Internal Medicine
DX: B37.81 Candidal esophagitis (principal); K21.01 Gastro-esophageal reflux disease with esophagitis, with bleeding; R65.10 Systemic inflammatory response syndrome (SIRS) of non-infectious origin without acute organ dysfunction; E87.6 Hypokalemia; E78.5 Hyperlipidemia, unspecified; E03.9 Hypothyroidism, unspecified; F12.10 Cannabis abuse, uncomplicated; I10 Essential (primary) hypertension; E10.65 Type 1 diabetes mellitus with hyperglycemia; K57.30 Diverticulosis of large intestine without perforation or abscess without bleeding; K44.9 Diaphragmatic hernia without obstruction or gangrene; Z90.710 Acquired absence of both cervix and uterus; Z88.0 Allergy status to penicillin; Z88.2 Allergy status to sulfonamides; Z88.8 Allergy status to other drugs, medicaments and biological substances; Z79.4 Long term (current) use of insulin; Z79.899 Other long term (current) drug therapy; Z83.3 Family history of diabetes mellitus
CPT/HCPCS: 36415; 36600; 74176; 80048; 80053; 80307; 80320; 81001; 82010; 82805; 82962; 83690; 85025; 85610; 85730; C9113; G0378; J1815; J1885; J1956; J2405

== ENCOUNTER 2024-05-04 12:54 | Emergency (ER) | payer MEDICAID ==
[~2024-05-04] VITALS: Ht 152.4 cm; Wt 68.1 kg
[~2024-05-04 12:54] MED LIST changes: -SUCR1TAB22 PO; +SUCR1TAB31 PO
[2024-05-04 13:00] VITALS: BP 123/80; PULSE 100; RESP 20; O2SAT 100
[2024-05-04] MEDS ORDERED: SODIUM CHLORIDE 0.9% 1,000 ML IV ONE (14:00)
[2024-05-04] MEDS ORDERED: ONDANSETRON HCL 4 MG/2 ML VIAL IV ONE (14:00)
== END 2024-05-04 15:31 | disposition left against medical advice (07) ==
LOC: EDBD 12:54 → ER 13:02
DX: R11.2 Nausea with vomiting, unspecified (principal); Z53.21 Procedure and treatment not carried out due to patient leaving prior to being seen by health care provider

== ENCOUNTER 2024-05-05 03:40 | Inpatient (IN) | payer MEDICAID ==
[~2024-05-05] VITALS: Ht 152.4 cm; Wt 61.4 kg
[2024-05-05 04:18] LABS: Basophils # (auto) 0.1 10 ^3/uL (0-0.2); Basophils % (auto) 0.3 % (0.0-2.0); Eosinophils # (auto) 0.1 10 ^3/uL (0-0.8); Eosinophils % (auto) 0.5 % (0.0-7.0); Hematocrit 50.7 % (36.0-46.0); Hemoglobin 17.1 g/dL (12.2-16.2); Lymphocytes # (auto) 2.2 10 ^3/uL (0.4-5.4); Lymphocytes % (auto) 8.9 % (10.0-50.0); Mean Corpuscular Hemoglobin 26.2 pg (28.0-32.0); Mean Corpuscular Hgb Conc. 33.7 g/dL (32.0-36.0); Mean Corpuscular Volume 77.9 fL (80.0-100.0); Monocytes # (auto) 1.3 10 ^3/uL (0-1.3); Monocytes % (auto) 5.3 % (0.0-12.0); Neutrophils # (auto) 21.1 10 ^3/uL (1.6-8.6); Nucleated Red Blood Cells % 0.1 %; Platelet Count (auto) 444 10^3/uL (140-450); Red Blood Cells 6.51 10^6/uL (4.0-5.20); Red Cell Distribution Width 15.6 % (11.8-14.3); White Blood Cell 24.8 10^3/uL (4.4-10.8)
[2024-05-05 04:30] LABS: Alanine Aminotransferase 28 U/L (7-40); Albumin 5.5 g/dL (3.2-4.8); Alkaline Phosphatase 89 U/L (46-116); Anion Gap 16 (5-15); Aspartate Aminotransferase 29 U/L (13-40); BUN/Creatinine Ratio 7.4 (10.0-20.0); Bilirubin, Total 1.4 mg/dL (0.2-1.0); Blood Urea Nitrogen 25 mg/dL (9-23); Calcium 10.6 mg/dL (8.7-10.4); Carbon Dioxide 31 mmol/L (20-30); Chloride 89 mmol/L (98-107); Glucose 345 mg/dL (74-106); Lipase 69 U/L (12-53); Potassium 3.3 mmol/L (3.5-5.1); Sodium 136 mmol/L (136-145)
[2024-05-05 04:31] LABS: Total Protein 8.7 g/dL (5.7-8.2)
[2024-05-05] MEDS ORDERED: DEXTROSE (50%) 50ML SYRG IV PRN (05:30)
[2024-05-05 05:34] VITALS: RESP 17; O2SAT 98
[2024-05-05] MEDS: ACCU-CHEK COMFORT CURVE STRIP VI SCH (06:22)
[2024-05-05] MEDS: INSULIN LANTUS (GLARGINE) 1 /0.01ml (100units/ml) SC ONE (06:38)
[2024-05-05] MEDS: INSULIN DRIP 100 UNIT/100ML 100 ML IV SCH (06:38)
[2024-05-05] MEDS: PROCHLORPERAZINE EDISYLATE 5 MG/ML 2ML VIAL IV ONE (06:40)
[2024-05-05] MEDS: SODIUM CHLORIDE 0.9% 1,000 ML IVB ONE (06:40)
[2024-05-05 07:35] VITALS: PULSE 77; PULSE 82; RESP 14; RESP 18; O2SAT 100
[2024-05-05] MEDS: POTASSIUM CHL 20MEQ/100ML 100 ML IV ONE (08:42)
[2024-05-05] MEDS ORDERED: MORPHINE SULFATE 10 MG/ML INJ 1ML SDV IV ONE (09:00)
[2024-05-05] MEDS: PANTOPRAZOLE 40 MG/10 ML VIAL INJ IV ONE ×2 (09:04→09:06)
[2024-05-05] MEDS: MORPHINE SULFATE 10 MG/ML INJ 1ML SDV IV ONE (09:05)
[2024-05-05] MEDS: MORPHINE SULFATE 4 MG/ML SYR/VIAL IV ONE (09:07)
[2024-05-05 10:39] LABS: Chloride 97 mmol/L (98-107); Potassium 3.4 mmol/L (3.5-5.1); Sodium 142 mmol/L (136-145)
[2024-05-05 10:40] LABS: Anion Gap 8 (5-15); Carbon Dioxide 37 mmol/L (20-30)
[2024-05-05 10:41] LABS: Calcium 9.9 mg/dL (8.7-10.4)
[2024-05-05 10:45] LABS: Glucose 140 mg/dL (74-106)
[2024-05-05] MEDS ORDERED: LACTATED RINGER'S 1,000 ML IV ONE (10:45)
[2024-05-05] MEDS ORDERED: LACTATED RINGER'S 2,000 ML IV ONE (10:45)
[2024-05-05 10:46] LABS: BUN/Creatinine Ratio 10.2 (10.0-20.0)
[2024-05-05 10:50] LABS: Blood Urea Nitrogen 36 mg/dL (9-23)
[2024-05-05] MEDS ORDERED: METOCLOPRAMIDE HCL 5MG/ml INJ 2ml VIAL IV PRN (11:00)
[2024-05-05] MEDS ORDERED: ACETAMINOPHEN 325 MG TAB PO PRN (11:00)
[2024-05-05] MEDS ORDERED: DOCUSATE SOD 100 MG CAP PO PRN (11:00)
[2024-05-05] MEDS: SODIUM CHLORIDE 0.9% 2,000 ML IV ONE (11:34)
[2024-05-05] MEDS: metroNIDAZOLE 500MG/100ML 100 ML IV SCH (11:40)
[2024-05-05 12:41] LABS: Lactic Acid w/Reflex 3.3 mmol/L (0.4-2.0)
[2024-05-05] MEDS: SODIUM CHLORIDE 0.9% 1,000 ML IV SCH (13:08)
[2024-05-05] MEDS: SODIUM CHLOR 0.9% PF (SALINE LOCK) 10ML VIAL/SYR IV SCH (14:18)
[2024-05-05 19:30] VITALS: PULSE 82; RESP 16; O2SAT 99
[2024-05-05] MEDS: HYDROmorphone HCL 2 MG/ML VL/or syr IV PRN (21:05)
[2024-05-05] MEDS: ONDANSETRON HCL 4 MG/2 ML VIAL IV PRN (21:05)
[2024-05-05 21:09] LABS: Basophils # (auto) 0.1 10 ^3/uL (0-0.2); Basophils % (auto) 0.6 % (0.0-2.0); Eosinophils # (auto) 0 10 ^3/uL (0-0.8); Eosinophils % (auto) 0.2 % (0.0-7.0); Hematocrit 43.1 % (36.0-46.0); Hemoglobin 14.2 g/dL (12.2-16.2); Mean Corpuscular Hemoglobin 26.3 pg (28.0-32.0); Mean Corpuscular Hgb Conc. 32.8 g/dL (32.0-36.0); Mean Corpuscular Volume 80.2 fL (80.0-100.0); Monocytes # (auto) 1.5 10 ^3/uL (0-1.3); Monocytes % (auto) 8.3 % (0.0-12.0); Neutrophils # (auto) 12.9 10 ^3/uL (1.6-8.6); Neutrophils % (auto) 73.9 % (37.0-80.0); Platelet Count (auto) 276 10^3/uL (140-450); Red Blood Cells 5.38 10^6/uL (4.0-5.20); Red Cell Distribution Width 15.5 % (11.8-14.3); White Blood Cell 17.5 10^3/uL (4.4-10.8)
[2024-05-05 21:22] LABS: Chloride 105 mmol/L (98-107); Potassium 3.3 mmol/L (3.5-5.1); Sodium 143 mmol/L (136-145)
[2024-05-05 21:23] LABS: Anion Gap 6 (5-15); Carbon Dioxide 32 mmol/L (20-30)
[2024-05-05 21:24] LABS: Calcium 8.7 mg/dL (8.7-10.4)
[2024-05-05 21:28] LABS: Glucose 123 mg/dL (74-106)
[2024-05-05 21:29] LABS: BUN/Creatinine Ratio 12.1 (10.0-20.0); Blood Urea Nitrogen 16 mg/dL (9-23)
[2024-05-05 22:29] LABS: Amphetamine Screen, Urine Neg (NEGATIVE); Barbiturate Scree,Urine Neg (NEGATIVE); Benzodiazephine Screen, Urine Neg (NEGATIVE); Cannabinoid Screen, Urine Pos (NEGATIVE); Cocaine Screen, Urine Neg (NEGATIVE); Creatinine, Urine 48.99 mg/dL (30.0-125.0); Opiate Scree,Urine Neg (NEGATIVE); Phencyclidine Screen, Urine Neg (NEGATIVE)
[2024-05-06] VITALS (10 sets, daily range): BP systolic 126–181; BP diastolic 86–98; PULSE 54–72; RESP 15–20; TEMP 98.2–98.7; O2SAT 0–100
[2024-05-06] MEDS ORDERED: DEXTROSE (50%) 50ML SYRG IV PRN (02:45)
[2024-05-06] MEDS: ACCU-CHEK COMFORT CURVE STRIP VI SCH (04:00)
[2024-05-06 04:21] LABS: Basophils # (auto) 0.1 10 ^3/uL (0-0.2); Basophils % (auto) 0.4 % (0.0-2.0); Eosinophils # (auto) 0 10 ^3/uL (0-0.8); Eosinophils % (auto) 0.2 % (0.0-7.0); Hematocrit 43.6 % (36.0-46.0); Hemoglobin 14.7 g/dL (12.2-16.2); Lymphocytes # (auto) 3.2 10 ^3/uL (0.4-5.4); Lymphocytes % (auto) 19.2 % (10.0-50.0); Mean Corpuscular Hemoglobin 26.7 pg (28.0-32.0); Mean Corpuscular Hgb Conc. 33.8 g/dL (32.0-36.0); Mean Corpuscular Volume 79.1 fL (80.0-100.0); Monocytes # (auto) 1.1 10 ^3/uL (0-1.3); Monocytes % (auto) 6.7 % (0.0-12.0); Neutrophils # (auto) 12.4 10 ^3/uL (1.6-8.6); Neutrophils % (auto) 73.5 % (37.0-80.0); Platelet Count (auto) 322 10^3/uL (140-450); Red Blood Cells 5.52 10^6/uL (4.0-5.20); Red Cell Distribution Width 15.5 % (11.8-14.3); White Blood Cell 16.8 10^3/uL (4.4-10.8)
[2024-05-06 04:38] LABS: Alanine Aminotransferase 25 U/L (7-40); Alkaline Phosphatase 69 U/L (46-116); Calcium 9.4 mg/dL (8.7-10.4)
[2024-05-06 04:39] LABS: Albumin 4.4 g/dL (3.2-4.8); Anion Gap 8 (5-15); Aspartate Aminotransferase 27 U/L (13-40); BUN/Creatinine Ratio 14.7 (10.0-20.0); Bilirubin, Total 1.3 mg/dL (0.2-1.0); Blood Urea Nitrogen 14 mg/dL (9-23); Carbon Dioxide 31 mmol/L (20-30); Chloride 103 mmol/L (98-107); Glucose 123 mg/dL (74-106); Phosphorus 2.5 mg/dL (2.4-5.1); Potassium 3.4 mmol/L (3.5-5.1); Sodium 142 mmol/L (136-145); Total Protein 6.8 g/dL (5.7-8.2)
[2024-05-06] MEDS ORDERED: METF-929 PO (04:42)
[2024-05-06] MEDS ORDERED: ZOFR4T PO (04:42)
[2024-05-06] MEDS: InsuLIN REG 1unit/0.01ml Soln (100units/ml) SC SCH ×2 (05:20→11:24)
[2024-05-06] MEDS ORDERED: InsuLIN REG 1unit/0.01ml Soln (100units/ml) SC SCH (06:00)
[2024-05-06] MEDS ORDERED: POTASSIUM EFFERVESENT TAB 25 MEQ GT STA ×2 (07:41→09:03)
[2024-05-06] MEDS: ERGOCALCIFEROL 50,000 UNIT(1.25MG) CAP PO SCH (07:45)
[2024-05-06] MEDS ORDERED: POTASSIUM CHL 20 Meq TABLET PO STA (08:11)
[2024-05-06] MEDS: cefTRIAXone 1GM/50ML D5W 50 ML IV SCH (08:28)
[2024-05-06] MEDS ORDERED: POTASSIUM CHL 20MEQ/100ML 100 ML IV SCH (10:00)
[2024-05-06] MEDS ORDERED: INSULIN LANTUS (GLARGINE) 1 /0.01ml (100units/ml) SC SCH (10:00)
[2024-05-06] MEDS: POTASSIUM EFFERVESENT TAB 25 MEQ PO ONE (10:13)
[2024-05-06 17:16] LABS: Urine Bacteria FEW /hpf (None Seen); Urine Blood Negative /uL (Negative); Urine Clarity Clear (Clear); Urine Color Light-Yellow (Yellow); Urine Protein, UAD Negative (Negative); Urine Specific Gravity 1.017 (1.001-1.035); Urine Urobilinogen 2 mg/dL (Negative); Urine WBC 1 /hpf (0 - 5)
[2024-05-06 17:28] LABS: Protein, Urine 22.7 mg/dL (0.0-11.9); Protein, Urine 27.8 mg/dL (0.0-11.9)
[2024-05-06 17:31] LABS: Creatinine, Urine 55.27 mg/dL (30.0-125.0); Creatinine, Urine 56.87 mg/dL (30.0-125.0); Urine Protein/Creatinine Ratio 0.49
[2024-05-06] MEDS: ATORVASTATIN 20 MG TAB PO ONE (18:33)
[2024-05-06] MEDS: PANTOPRAZOLE 40 MG TAB PO STA (18:33)
[2024-05-06] MEDS: SODIUM CHLORIDE 0.9% 1,000 ML IV SCH (18:36)
[2024-05-06] MEDS: HYDROcodone-ACET 5/325MG TAB PO PRN (23:01)
[2024-05-07] VITALS (9 sets, daily range): BP systolic 131–155; BP diastolic 60–102; PULSE 51–69; RESP 17–20; TEMP 98–98.7; O2SAT 94–100
[2024-05-07] MEDS: HYDROmorphone HCL 2 MG/ML VL/or syr IV PRN (00:19)
[2024-05-07 05:56] LABS: Basophils # (auto) 0.1 10 ^3/uL (0-0.2); Basophils % (auto) 0.9 % (0.0-2.0); Eosinophils # (auto) 0.2 10 ^3/uL (0-0.8); Eosinophils % (auto) 2.1 % (0.0-7.0); Hematocrit 39.4 % (36.0-46.0); Hemoglobin 13.2 g/dL (12.2-16.2); Lymphocytes # (auto) 3.6 10 ^3/uL (0.4-5.4); Lymphocytes % (auto) 37.3 % (10.0-50.0); Mean Corpuscular Hgb Conc. 33.6 g/dL (32.0-36.0); Mean Corpuscular Volume 80.3 fL (80.0-100.0); Monocytes # (auto) 0.6 10 ^3/uL (0-1.3); Monocytes % (auto) 6.5 % (0.0-12.0); Neutrophils # (auto) 5.2 10 ^3/uL (1.6-8.6); Neutrophils % (auto) 53.2 % (37.0-80.0); Nucleated Red Blood Cells % 0.1 %; Platelet Count (auto) 244 10^3/uL (140-450); Red Blood Cells 4.91 10^6/uL (4.0-5.20); White Blood Cell 9.8 10^3/uL (4.4-10.8)
[2024-05-07] MEDS: PANTOPRAZOLE 40 MG TAB PO SCH (06:00)
[2024-05-07 06:19] LABS: Alanine Aminotransferase 28 U/L (7-40); Albumin 3.8 g/dL (3.2-4.8); Alkaline Phosphatase 59 U/L (46-116); Anion Gap 6 (5-15); Aspartate Aminotransferase 28 U/L (13-40); Blood Urea Nitrogen 9 mg/dL (9-23); Calcium 9.2 mg/dL (8.7-10.4); Carbon Dioxide 30 mmol/L (20-30); Chloride 101 mmol/L (98-107); Glucose 113 mg/dL (74-106); Magnesium 1.7 mg/dL (1.6-2.6); Potassium 3.4 mmol/L (3.5-5.1); Sodium 137 mmol/L (136-145)
[2024-05-07 06:20] LABS: Bilirubin, Total 1.3 mg/dL (0.2-1.0)
[2024-05-07] MEDS: POTASSIUM CHL 20 Meq TABLET PO ONE (07:58)
[2024-05-07] MEDS: MAGNESIUM SULFATE 1GM/100ML 100 ML IV ONE (14:12)
[2024-05-07] MEDS: SUCRALFATE 1 GM/10 ML ORAL SUSP PO SCH (17:05)
[2024-05-08 01:02] VITALS: BP 153/87; PULSE 68; RESP 47; TEMP 97.9; O2SAT 100
[2024-05-08 05:00] VITALS: BP 140/96; PULSE 65; RESP 18; TEMP 97.8; O2SAT 97
[2024-05-08 06:23] LABS: Basophils # (auto) 0.1 10 ^3/uL (0-0.2); Monocytes # (auto) 0.4 10 ^3/uL (0-1.3); Neutrophils # (auto) 3.3 10 ^3/uL (1.6-8.6); Nucleated Red Blood Cells % 0.1 %; Red Blood Cells 4.95 10^6/uL (4.0-5.20)
[2024-05-08 06:24] LABS: Basophils % (auto) 1.3 % (0.0-2.0); Eosinophils # (auto) 0.3 10 ^3/uL (0-0.8); Eosinophils % (auto) 3.6 % (0.0-7.0); Hematocrit 39.4 % (36.0-46.0); Hemoglobin 13.4 g/dL (12.2-16.2); Lymphocytes # (auto) 2.9 10 ^3/uL (0.4-5.4); Lymphocytes % (auto) 41.9 % (10.0-50.0); Mean Corpuscular Hemoglobin 27.1 pg (28.0-32.0); Mean Corpuscular Hgb Conc. 34.1 g/dL (32.0-36.0); Mean Corpuscular Volume 79.5 fL (80.0-100.0); Monocytes % (auto) 5.8 % (0.0-12.0); Neutrophils % (auto) 47.4 % (37.0-80.0); Platelet Count (auto) 248 10^3/uL (140-450); Red Cell Distribution Width 15.1 % (11.8-14.3)
[2024-05-08 06:37] LABS: Alanine Aminotransferase 27 U/L (7-40); Albumin 3.8 g/dL (3.2-4.8); Alkaline Phosphatase 57 U/L (46-116); Anion Gap 4 (5-15); Aspartate Aminotransferase 19 U/L (13-40); BUN/Creatinine Ratio 12.7 (10.0-20.0); Blood Urea Nitrogen 9 mg/dL (9-23); Calcium 9.3 mg/dL (8.7-10.4); Carbon Dioxide 29 mmol/L (20-30); Chloride 107 mmol/L (98-107); Glucose 138 mg/dL (74-106); Potassium 4.6 mmol/L (3.5-5.1); Sodium 140 mmol/L (136-145)
[2024-05-08 06:38] LABS: Bilirubin, Total 0.8 mg/dL (0.2-1.0); Total Protein 5.8 g/dL (5.7-8.2)
[2024-05-08 08:15] VITALS: PULSE 52; RESP 15
[2024-05-08 08:41] VITALS: BP 142/91; PULSE 63; RESP 20; TEMP 98.2; O2SAT 99
[2024-05-08 12:34] VITALS: BP 137/84; PULSE 59; RESP 20; TEMP 97.7; O2SAT 100
[2024-05-08] MEDS ORDERED: ZOFR4T PO (14:51)
[2024-05-08] MEDS ORDERED: METR-344 PO (14:51)
[2024-05-08] MEDS ORDERED: CIPR-273 PO (14:51)
[2024-05-08 16:51] VITALS: BP 137/84; PULSE 59; RESP 20; TEMP 97.7; O2SAT 100
== END 2024-05-08 17:40 | disposition home or self-care (01) | DRG 720 ==
LOC: ER 03:40 → TELE 10:48 → TELE-CENTR 05-06 04:26
PROVIDERS: ATTEND Internal Medicine Geriatric Medicine
DX: A41.9 Sepsis, unspecified organism (principal); N17.0 Acute kidney failure with tubular necrosis; E11.10 Type 2 diabetes mellitus with ketoacidosis without coma; K85.90 Acute pancreatitis without necrosis or infection, unspecified; K90.0 Celiac disease; E87.8 Other disorders of electrolyte and fluid balance, not elsewhere classified; E87.6 Hypokalemia; E86.0 Dehydration; E78.5 Hyperlipidemia, unspecified; K52.9 Noninfective gastroenteritis and colitis, unspecified; E83.52 Hypercalcemia; R74.8 Abnormal levels of other serum enzymes; F12.10 Cannabis abuse, uncomplicated; E03.9 Hypothyroidism, unspecified; Z88.0 Allergy status to penicillin; Z88.2 Allergy status to sulfonamides; Z88.8 Allergy status to other drugs, medicaments and biological substances; Z79.899 Other long term (current) drug therapy; Z83.3 Family history of diabetes mellitus; Z90.710 Acquired absence of both cervix and uterus; Z82.49 Family history of ischemic heart disease and other diseases of the circulatory system; Z90.49 Acquired absence of other specified parts of digestive tract; K21.00 Gastro-esophageal reflux disease with esophagitis, without bleeding; E11.22 Type 2 diabetes mellitus with diabetic chronic kidney disease; I12.9 Hypertensive chronic kidney disease with stage 1 through stage 4 chronic kidney disease, or unspecified chronic kidney disease; N18.30 Chronic kidney disease, stage 3 unspecified; Z79.4 Long term (current) use of insulin
CPT/HCPCS: 36415; 71045; 74176; 76775; 80048; 80053; 80307; 80320; 81001; 82010; 82043; 82248; 82306; 82570; 82962; 83036; 83605; 83690; 83735; 83930; 83935; 83970; 84100; 84156; 84300; 84702; 85025; 87040; 96361; 96365; 96372; 96375; G0378; J1815; J2405; J2470; J3480; J3490

== ENCOUNTER 2024-05-25 16:22 | Emergency (ER) | payer MEDICAID ==
[~2024-05-25] VITALS: Ht 152.4 cm; Wt 60.7 kg
[~2024-05-25 16:22] MED LIST changes: +CIPR-273 PO; +METF-929 PO; +METR-344 PO; +ZOFR4T PO
[2024-05-25] MEDS: ASPirin 325 MG TAB PO ONE (18:59)
[2024-05-25] MEDS: HYDROcodone-ACET 5/325MG TAB PO ONE (19:00)
[2024-05-25 19:56] LABS: Basophils # (auto) 0.1 10 ^3/uL (0-0.2); Basophils % (auto) 0.6 % (0.0-2.0); Eosinophils # (auto) 0.3 10 ^3/uL (0-0.8); Eosinophils % (auto) 3.4 % (0.0-7.0); Hematocrit 39.5 % (36.0-46.0); Hemoglobin 13.5 g/dL (12.2-16.2); Lymphocytes # (auto) 3.3 10 ^3/uL (0.4-5.4); Lymphocytes % (auto) 35.7 % (10.0-50.0); Mean Corpuscular Hgb Conc. 34.2 g/dL (32.0-36.0); Mean Corpuscular Volume 78.9 fL (80.0-100.0); Monocytes # (auto) 0.5 10 ^3/uL (0-1.3); Monocytes % (auto) 5.2 % (0.0-12.0); Neutrophils # (auto) 5.1 10 ^3/uL (1.6-8.6); Neutrophils % (auto) 55.1 % (37.0-80.0); Platelet Count (auto) 324 10^3/uL (140-450); Red Cell Distribution Width 15.9 % (11.8-14.3); White Blood Cell 9.3 10^3/uL (4.4-10.8)
[2024-05-25 20:23] LABS: Alanine Aminotransferase 25 U/L (7-40); Albumin 4.7 g/dL (3.2-4.8); Alkaline Phosphatase 66 U/L (46-116); Anion Gap 8 (5-15); Aspartate Aminotransferase 12 U/L (13-40); BUN/Creatinine Ratio 10.6 (10.0-20.0); Blood Urea Nitrogen 7 mg/dL (9-23); Calcium 9.9 mg/dL (8.7-10.4); Carbon Dioxide 24 mmol/L (20-30); Chloride 107 mmol/L (98-107); Glucose 111 mg/dL (74-106); Potassium 3.4 mmol/L (3.5-5.1); Sodium 139 mmol/L (136-145)
[2024-05-25 20:24] LABS: Bilirubin, Total 0.8 mg/dL (0.2-1.0); Total Protein 6.9 g/dL (5.7-8.2)
[2024-05-25 21:07] LABS: Urine Bacteria None Seen /hpf (None Seen)
[2024-05-25 21:33] LABS: Urine Blood Negative /uL (Negative); Urine Clarity Clear (Clear); Urine Color Yellow (Yellow); Urine Mucus FEW (None Seen); Urine Protein, UAD 1+ (Negative); Urine Specific Gravity 1.028 (1.001-1.035); Urine Urobilinogen 2 mg/dL (Negative); Urine WBC 1 /hpf (0 - 5)
[2024-05-26] MEDS: MAALOX PLUS or MAALOX 30 ML PO ONE (00:25)
[2024-05-26] MEDS: DONNATAL 5ml ORAL Elix (BELLADONNA ALK-PHENOBARB) PO ONE (00:28)
[2024-05-26] MEDS: LIDOCAINE VISCOUS 2% 15ML UD MT ONE (00:28)
[2024-05-26 01:24] VITALS: BP 147/107; PULSE 74; RESP 16; TEMP 98.4; O2SAT 97
== END 2024-05-26 01:30 | disposition home or self-care (01) ==
LOC: ER 16:22
DX: I82.612 Acute embolism and thrombosis of superficial veins of left upper extremity (principal); S50.12XA Contusion of left forearm, initial encounter; E11.9 Type 2 diabetes mellitus without complications; K21.9 Gastro-esophageal reflux disease without esophagitis; E78.5 Hyperlipidemia, unspecified; I10 Essential (primary) hypertension; F12.10 Cannabis abuse, uncomplicated; Z88.0 Allergy status to penicillin; Z88.1 Allergy status to other antibiotic agents; Z90.49 Acquired absence of other specified parts of digestive tract; Z88.2 Allergy status to sulfonamides; Z90.710 Acquired absence of both cervix and uterus; W34.09XA Accidental discharge from other specified firearms, initial encounter; Y93.89 Activity, other specified; Y92.89 Other specified places as the place of occurrence of the external cause; Y99.8 Other external cause status
CPT/HCPCS: 36415; 80053; 81001; 85025; 85379; 93005; 93971

== ENCOUNTER 2024-05-27 07:18 | Inpatient (IN) | payer MEDICAID ==
[~2024-05-27] VITALS: Ht 152.4 cm; Wt 63.0 kg
[2024-05-27 07:57] VITALS: PULSE 87; RESP 11; O2SAT 96
[2024-05-27 08:07] LABS: Basophils # (auto) 0 10 ^3/uL (0-0.2); Basophils % (auto) 0.2 % (0.0-2.0); Eosinophils # (auto) 0 10 ^3/uL (0-0.8); Hematocrit 43.9 % (36.0-46.0); Hemoglobin 15.5 g/dL (12.2-16.2); Lymphocytes # (auto) 1.5 10 ^3/uL (0.4-5.4); Mean Corpuscular Hemoglobin 27.5 pg (28.0-32.0); Mean Corpuscular Hgb Conc. 35.2 g/dL (32.0-36.0); Monocytes % (auto) 5.7 % (0.0-12.0); Neutrophils # (auto) 15.6 10 ^3/uL (1.6-8.6); Neutrophils % (auto) 86.1 % (37.0-80.0); Platelet Count (auto) 396 10^3/uL (140-450); Red Blood Cells 5.63 10^6/uL (4.0-5.20); Red Cell Distribution Width 15.4 % (11.8-14.3); White Blood Cell 18.2 10^3/uL (4.4-10.8)
[2024-05-27] MEDS: ONDANSETRON HCL 4 MG/2 ML VIAL IV ONE ×2 (08:09→12:47)
[2024-05-27] MEDS: SODIUM CHLORIDE 0.9% 1,000 ML IV ONE (08:09)
[2024-05-27] MEDS: PANTOPRAZOLE 40 MG/10 ML VIAL INJ IV ONE ×2 (08:09→12:47)
[2024-05-27 08:21] LABS: Alanine Aminotransferase 30 U/L (7-40); Albumin 5.5 g/dL (3.2-4.8); Alkaline Phosphatase 80 U/L (46-116); Anion Gap 14 (5-15); Aspartate Aminotransferase 13 U/L (13-40); BUN/Creatinine Ratio 20.9 (10.0-20.0); Blood Urea Nitrogen 23 mg/dL (9-23); Calcium 10.9 mg/dL (8.7-10.4); Carbon Dioxide 31 mmol/L (20-30); Glucose 288 mg/dL (74-106); Potassium 3.1 mmol/L (3.5-5.1); Sodium 139 mmol/L (136-145)
[2024-05-27 08:22] LABS: Bilirubin, Total 1.8 mg/dL (0.2-1.0); Chloride 94 mmol/L (98-107); Total Protein 7.8 g/dL (5.7-8.2)
[2024-05-27] MEDS ORDERED: HYDROmorphone HCL 2 MG/ML VL/or syr IV ONE (08:45)
[2024-05-27] MEDS: SODIUM CHLORIDE 0.9% 2,000 ML IV ONE (08:46)
[2024-05-27] MEDS: MORPHINE SULFATE 4 MG/ML SYR/VIAL IV ONE (09:25)
[2024-05-27] MEDS ORDERED: DOCUSATE SOD 100 MG CAP PO PRN (12:15)
[2024-05-27] MEDS ORDERED: DEXTROSE (50%) 50ML SYRG IV PRN (12:15)
[2024-05-27] MEDS ORDERED: NITROGLYCERIN 0.4 MG SL TAB SL PRN (12:15)
[2024-05-27 12:28] LABS: Magnesium 1.8 mg/dL (1.6-2.6)
[2024-05-27 12:29] LABS: Phosphorus 2.2 mg/dL (2.4-5.1)
[2024-05-27] MEDS: IOHEXOL 300 MG/ML 100ML BOTTLE IJ ONE (12:40)
[2024-05-27] MEDS: SODIUM CHLORIDE 0.9% 1,000 ML IV SCH (12:47)
[2024-05-27] MEDS: LISINOPRIL 5 MG TAB PO ONE (14:05)
[2024-05-27] MEDS: MORPHINE SULFATE INJ 2 MG/ml SYRG IV PRN (14:06)
[2024-05-27] MEDS: POTASSIUM CHLORIDE 20 MEQ, LIDOCAINE 1% (LOCAL ANESTH.) 2 ML in SODIUM CHL 0.9% 100 ML IV ONE (14:44)
[2024-05-27] MEDS: ACCU-CHEK COMFORT CURVE STRIP VI SCH (17:19)
[2024-05-27] MEDS: InsuLIN REG 1unit/0.01ml Soln (100units/ml) SC SCH (17:19)
[2024-05-27] MEDS: ONDANSETRON HCL 4 MG/2 ML VIAL IV PRN (18:36)
[2024-05-27] MEDS: hydrALAZINE HCL 20 MG/ML VL IV PRN (19:09)
[2024-05-27 19:25] VITALS: PULSE 16; RESP 16; O2SAT 100
[2024-05-27] MEDS: SUCRALFATE 1 GM/10 ML ORAL SUSP PO SCH (22:55)
[2024-05-27] MEDS: PANTOPRAZOLE 40 MG/10 ML VIAL INJ IV SCH (22:55)
[2024-05-28] VITALS (7 sets, daily range): BP systolic 138–163; BP diastolic 68–96; PULSE 55–69; RESP 16–20; TEMP 98.3–99; O2SAT 96–99
[2024-05-28 06:32] LABS: Basophils # (auto) 0.1 10 ^3/uL (0-0.2); Basophils % (auto) 0.6 % (0.0-2.0); Eosinophils # (auto) 0 10 ^3/uL (0-0.8); Eosinophils % (auto) 0.1 % (0.0-7.0); Hematocrit 38.8 % (36.0-46.0); Hemoglobin 13.2 g/dL (12.2-16.2); Lymphocytes # (auto) 2.3 10 ^3/uL (0.4-5.4); Lymphocytes % (auto) 15.7 % (10.0-50.0); Mean Corpuscular Hemoglobin 27.5 pg (28.0-32.0); Mean Corpuscular Volume 80.8 fL (80.0-100.0); Monocytes # (auto) 0.8 10 ^3/uL (0-1.3); Monocytes % (auto) 5.3 % (0.0-12.0); Neutrophils # (auto) 11.5 10 ^3/uL (1.6-8.6); Neutrophils % (auto) 78.3 % (37.0-80.0); Nucleated Red Blood Cells % 0.1 %; Platelet Count (auto) 288 10^3/uL (140-450); Red Blood Cells 4.81 10^6/uL (4.0-5.20); Red Cell Distribution Width 15.7 % (11.8-14.3); White Blood Cell 14.7 10^3/uL (4.4-10.8)
[2024-05-28 06:51] LABS: Alanine Aminotransferase 18 U/L (7-40); Alkaline Phosphatase 59 U/L (46-116); Anion Gap 14 (5-15); BUN/Creatinine Ratio 9.1 (10.0-20.0); Calcium 9.1 mg/dL (8.7-10.4); Carbon Dioxide 23 mmol/L (20-30); Chloride 104 mmol/L (98-107); Glucose 148 mg/dL (74-106); Potassium 2.8 mmol/L (3.5-5.1); Sodium 141 mmol/L (136-145)
[2024-05-28 06:52] LABS: Albumin 4.1 g/dL (3.2-4.8); Aspartate Aminotransferase 11 U/L (13-40); Bilirubin, Total 1.2 mg/dL (0.2-1.0); Total Protein 6.1 g/dL (5.7-8.2)
[2024-05-28 06:56] LABS: Blood Urea Nitrogen 5 mg/dL (9-23)
[2024-05-29 01:00] VITALS: BP 131/74; PULSE 54; RESP 16; TEMP 98; O2SAT 97
[2024-05-29 05:00] VITALS: BP 140/60; PULSE 60; RESP 18; TEMP 98; O2SAT 98
[2024-05-29 08:00] VITALS: BP 143/85; PULSE 54; RESP 17; RESP 18; TEMP 98.5; O2SAT 97
[2024-05-29 13:00] VITALS: BP 147/89; PULSE 61; RESP 16; TEMP 97.9; O2SAT 100
[2024-05-29] MEDS: POTASSIUM CHL 20 Meq TABLET PO ONE (13:54)
[2024-05-29] MEDS: MORPHINE SULFATE INJ 2 MG/ml SYRG IV PRN (14:35)
[2024-05-29 16:00] VITALS: BP 140/85; PULSE 55; RESP 18; TEMP 98.4; O2SAT 99
[2024-05-29 21:00] VITALS: BP 130/84; PULSE 63; RESP 18; TEMP 97.8; O2SAT 96
[2024-05-30 01:00] VITALS: BP 130/85; PULSE 85; RESP 16; TEMP 97.9; O2SAT 94
[2024-05-30 05:00] VITALS: BP 130/84; PULSE 78; RESP 18; TEMP 98.9; O2SAT 99
[2024-05-30 07:01] LABS: Basophils # (auto) 0.1 10 ^3/uL (0-0.2); Basophils % (auto) 1.7 % (0.0-2.0); Eosinophils # (auto) 0.2 10 ^3/uL (0-0.8); Eosinophils % (auto) 2.6 % (0.0-7.0); Hematocrit 34.6 % (36.0-46.0); Lymphocytes # (auto) 3.5 10 ^3/uL (0.4-5.4); Lymphocytes % (auto) 50.9 % (10.0-50.0); Mean Corpuscular Hemoglobin 27.8 pg (28.0-32.0); Mean Corpuscular Hgb Conc. 34.7 g/dL (32.0-36.0); Mean Corpuscular Volume 80.2 fL (80.0-100.0); Monocytes # (auto) 0.4 10 ^3/uL (0-1.3); Monocytes % (auto) 5.6 % (0.0-12.0); Neutrophils # (auto) 2.7 10 ^3/uL (1.6-8.6); Neutrophils % (auto) 39.2 % (37.0-80.0); Nucleated Red Blood Cells % 0.1 %; Platelet Count (auto) 246 10^3/uL (140-450); Red Blood Cells 4.31 10^6/uL (4.0-5.20); Red Cell Distribution Width 15.2 % (11.8-14.3); White Blood Cell 6.9 10^3/uL (4.4-10.8)
[2024-05-30 07:07] LABS: Chloride 107 mmol/L (98-107); Potassium 3.4 mmol/L (3.5-5.1); Sodium 140 mmol/L (136-145)
[2024-05-30 07:08] LABS: Anion Gap 7 (5-15); Calcium 8.9 mg/dL (8.7-10.4); Carbon Dioxide 26 mmol/L (20-30)
[2024-05-30 07:13] LABS: Glucose 118 mg/dL (74-106)
[2024-05-30 07:14] LABS: Blood Urea Nitrogen < 5 mg/dL (9-23)
[2024-05-30 07:20] LABS: BUN/Creatinine Ratio 9.1 (10.0-20.0)
[2024-05-30 09:00] VITALS: BP 140/101; PULSE 82; RESP 20; TEMP 98.2; O2SAT 99
[2024-05-30] MEDS: POTASSIUM CHL 20 Meq TABLET PO ONE (12:42)
[2024-05-30 13:00] VITALS: BP 107/86; PULSE 67; RESP 18; TEMP 98.6; O2SAT 99
[2024-05-30 17:00] VITALS: BP 148/94; PULSE 66; RESP 20; TEMP 98.3; O2SAT 100
== END 2024-05-30 18:04 | disposition home or self-care (01) | DRG 241 ==
LOC: EDBD 07:18 → ER 07:18 → OVERFLOW 12:08 → CENTRAL 23:50
PROVIDERS: ADMIT Nurse Practitioner Family; ATTEND Internal Medicine Geriatric Medicine
DX: K29.91 Gastroduodenitis, unspecified, with bleeding (principal); N17.0 Acute kidney failure with tubular necrosis; K21.01 Gastro-esophageal reflux disease with esophagitis, with bleeding; K57.31 Diverticulosis of large intestine without perforation or abscess with bleeding; I80.8 Phlebitis and thrombophlebitis of other sites; D72.829 Elevated white blood cell count, unspecified; E11.65 Type 2 diabetes mellitus with hyperglycemia; K76.0 Fatty (change of) liver, not elsewhere classified; E03.9 Hypothyroidism, unspecified; E78.5 Hyperlipidemia, unspecified; E86.0 Dehydration; E87.6 Hypokalemia; I10 Essential (primary) hypertension; K90.0 Celiac disease; F12.10 Cannabis abuse, uncomplicated; K44.9 Diaphragmatic hernia without obstruction or gangrene; Z88.0 Allergy status to penicillin; Z88.2 Allergy status to sulfonamides; Z88.8 Allergy status to other drugs, medicaments and biological substances; Z83.3 Family history of diabetes mellitus; Z90.710 Acquired absence of both cervix and uterus; Z90.49 Acquired absence of other specified parts of digestive tract
CPT/HCPCS: 36415; 74177; 80048; 80053; 82962; 83605; 83735; 84100; 84702; 85025; G0378; J1815; J2001; J2405; J2470

== ENCOUNTER 2024-11-24 03:59 | Emergency (ER) | payer MEDICAID ==
[~2024-11-24] VITALS: Ht 152.4 cm; Wt 54.4 kg
[~2024-11-24 03:59] MED LIST changes: -CIPR-273 PO; -FLUC200T50 PO
[2024-11-24 04:12] VITALS: BP 131/73; PULSE 84; RESP 16; O2SAT 100
[2024-11-24 04:35] LABS: Basophils # (auto) 0 10 ^3/uL (0-0.2); Basophils % (auto) 0.2 % (0.0-2.0); Eosinophils # (auto) 0 10 ^3/uL (0-0.8); Hematocrit 44.8 % (36.0-46.0); Hemoglobin 15.1 g/dL (12.2-16.2); Lymphocytes # (auto) 1.4 10 ^3/uL (0.4-5.4); Lymphocytes % (auto) 8.7 % (10.0-50.0); Mean Corpuscular Hemoglobin 27.3 pg (28.0-32.0); Mean Corpuscular Hgb Conc. 33.8 g/dL (32.0-36.0); Mean Corpuscular Volume 80.8 fL (80.0-100.0); Monocytes # (auto) 0.8 10 ^3/uL (0-1.3); Monocytes % (auto) 4.8 % (0.0-12.0); Neutrophils # (auto) 14.2 10 ^3/uL (1.6-8.6); Neutrophils % (auto) 86.3 % (37.0-80.0); Nucleated Red Blood Cells % 0.1 %; Platelet Count (auto) 325 10^3/uL (140-450); Red Blood Cells 5.54 10^6/uL (4.0-5.20); Red Cell Distribution Width 14.6 % (11.8-14.3); White Blood Cell 16.5 10^3/uL (4.4-10.8)
[2024-11-24 04:57] LABS: Alanine Aminotransferase 18 U/L (7-40); Alkaline Phosphatase 67 U/L (46-116); Anion Gap 14 (5-15); Aspartate Aminotransferase 15 U/L (13-40); BUN/Creatinine Ratio 18.5 (10.0-20.0); Blood Urea Nitrogen 17 mg/dL (9-23); Carbon Dioxide 26 mmol/L (20-31); Chloride 100 mmol/L (98-107); Sodium 140 mmol/L (136-145)
[2024-11-24 04:58] LABS: Bilirubin, Total 0.8 mg/dL (0.2-1.0)
[2024-11-24 04:59] LABS: Albumin 5.5 g/dL (3.2-4.8); Calcium 10.8 mg/dL (8.7-10.4); Glucose 205 mg/dL (74-106); Lipase 58 U/L (12-53); Potassium 3.3 mmol/L (3.5-5.1)
[2024-11-24 05:00] LABS: Lactic Acid w/Reflex 2.8 mmol/L (0.4-2.0)
[2024-11-24] MEDS: ONDANSETRON HCL 4 MG/2 ML VIAL IV ONE (05:05)
[2024-11-24] MEDS: PANTOPRAZOLE 40 MG/10 ML VIAL INJ IV ONE (05:06)
[2024-11-24] MEDS: SODIUM CHLORIDE 0.9% 250 ML IV ONE (05:06)
[2024-11-24] MEDS ORDERED: KETOROLAC TROMETH 30 MG/ML 1ML VIAL IV ONE (05:30)
[2024-11-24] MEDS ORDERED: SODIUM CHLORIDE 0.9% 1,000 ML IV ONE (05:30)
--- NOTE | 2024-11-24 05:54 | PRN ---
Misceleneous Note Note Note RAPID MEDICAL ASSESSMENT NOTE: 39-year-old female who presents with abdominal pain and vomiting Physical exam: General: Awake, alert and oriented. No acute distress. Skin: Skin in warm, dry and intact without rashes or lesions. HEENT: The head is normocephalic and atraumatic. Conjunctivae are clear without exudates or hemorrhage. Sclera is non-icteric. Neck: Normal range of motion. No JVD. Cardiac: Regular rate Respiratory: No signs of respiratory distress. No Stridor. Neurological: The patient is awake, alert and oriented to person, place, and time with normal speech. Speech is clear. There is no facial asymmetry. Patient is ambulating in the emergency department without difficulty. Psychiatric: Appropriate mood and affect. Good judgement and insight. Plan: Labs, imaging, pain control and antiemetics. Sign out to oncoming provider pending full evaluation and re-assessment. ESTHER WASHBURN MD Nov 24, 2024 05:54
[2024-11-24] MEDS: IOHEXOL 300 MG/ML 100ML BOTTLE IJ ONE (06:00)
--- NOTE | 2024-11-24 06:25 | DVH ---
EXAM: CT Abdomen and Pelvis With Intravenous Contrast CLINICAL INDICATION: Abdominal pain vomiting TECHNIQUE: Axial computed tomography images of the abdomen and pelvis with intravenous contrast. Th is CT exam was performed using one or more of the following dose reduction techniques: automated exp osure control, adjustment of the mA and/or kV according to patient size, and/or use of iterative sandro nstruction technique. CONTRAST: COMPARISON: CT CT AB PEL WITH IV CON ONLY on DOS: 05/27/24 FINDINGS: LUNG BASES: Unremarkable. No mass. No consolidation. MEDIASTINUM: Small esophageal hiatal hernia. ABDOMEN: LIVER: Hepatomegaly with fatty infiltration. GALLBLADDER AND BILE DUCTS: Gallbladder is surgically absent. No ductal dilation. PANCREAS: Unremarkable. No mass. No ductal dilation. SPLEEN: Unremarkable. No splenomegaly. ADRENALS: Unremarkable. No mass. KIDNEYS AND URETERS: Unremarkable. No solid mass. No hydronephrosis. STOMACH AND BOWEL: Colonic diverticulosis without acute diverticulitis. No obstruction. PELVIS: APPENDIX: No findings to suggest acute appendicitis. BLADDER: Unremarkable. No mass. REPRODUCTIVE: Unremarkable as visualized. ABDOMEN and PELVIS: INTRAPERITONEAL SPACE: Unremarkable. No free air. No significant fluid collection. BONES/JOINTS: No acute fracture. No dislocation. SOFT TISSUES: Umbilical hernia containing fat. VASCULATURE: Unremarkable. No abdominal aortic aneurysm. LYMPH NODES: Unremarkable. No enlarged lymph nodes. OTHER FINDINGS: . . . . IMPRESSION: 1. Small esophageal hiatal hernia. 2. Hepatomegaly with fatty infiltration. 3. Umbilical hernia containing fat. 4. Colonic diverticulosis without acute diverticulitis.
== END 2024-11-24 06:05 | disposition left against medical advice (07) ==
LOC: EDBD 03:59 → ER 03:59
DX: R11.2 Nausea with vomiting, unspecified (principal); R19.7 Diarrhea, unspecified; R10.9 Unspecified abdominal pain; R53.1 Weakness
CPT/HCPCS: 36415; 74177; 80053; 83605; 83690; 85025; 96361; 96374; 96375; 99285; J1885; J2405; J2470; J7050; Q9967

== ENCOUNTER 2025-01-11 16:03 | Emergency (ER) | payer MEDICAID ==
[~2025-01-11] VITALS: Ht 152.4 cm; Wt 59.0 kg
[2025-01-11 16:07] VITALS: BP 106/62; PULSE 70; RESP 14; TEMP 99; O2SAT 98
--- NOTE | 2025-01-11 17:06 | ED.PDOC ---
GI ASSESSMENT HPI Comments BIBA FOR C/O N/V X 2 DAYS WITH BLOOD TINGED VOMITUS PT HAS HX OF CONSTIPATION, TOOK LAXATIVE 2 DAYS AGO WAS SEEN HERE A MONTH AGO BUT LEFT AMA HAS APPT WITH GI BUT PT DID NOT GO ZOFRAN 4MG ODT EN ROUTE Chief Complaint: Nausea/Vomiting Time Seen by MD: 16:33 Primary Care Provider: GUIDO WOODS Reviewed Notes: Nurses Notes, Medications, Allergies Allergies: Coded Allergies: Gluten Meal (Verified Allergy, Severe, 05/30/24) Promethazine (Verified Allergy, Severe, 10/25/23) Wheat (Verified Allergy, Severe, 05/30/24) Metoclopramide (Verified Allergy, Intermediate, jittery, 10/25/23) Sulfa Antibiotics (Verified Allergy, Mild, 10/25/23) Penicillins (Verified Allergy, Unknown, 10/25/23) Home Meds Active Scripts Ondansetron Odt 4MG Tab (ZOFRAN PO) 4 Mg Tb, 4 MG PO Q6HP PRN, #20 TAB ODT TAB-DISSOLVE IN MOUTH, THEN SWALLOW Prov:MARK HATFIELD MD 05/08/24 Metronidazole (Flagyl) 500 Mg Tab, 500 MG PO TID for 7 Days, #21 TAB Prov:MARK HATFIELD MD 05/08/24 Nystatin (Mouth-Throat) (Mycostatin (Mouth-Throat)) 500,000 Units/5 Ml Ss, 5 ML MT TID for 7 Days, #150 ML Prov:TONI LIEBERMAN MD 12/03/23 Sucralfate (CARAFATE) 1 Gm Tab, 1 GM PO QPM for 30 Days, #30 TAB Prov:TONI LIEBERMAN MD 12/03/23 Pantoprazole Sodium Sesquihydr (Protonix) 40 Mg Tab, 40 MG PO DAILY for 30 Days, #30 TAB 2 Refills Prov:TONI LIEBERMAN MD 12/03/23 Nystatin (Mouth-Throat) (Mycostatin (Mouth-Throat)) 500,000 Units/5 Ml Ss, 5 ML MT QID for 10 Days, #200 ML Prov:YAZ JACK 10/28/23 Pantoprazole Sodium Sesquihydr (Protonix) 40 Mg Tab, 40 MG PO DAILY, #30 TAB Prov:BEKA CHANDLER MD 05/24/23 Pantoprazole Sodium Sesquihydr (Protonix) 40 Mg Tab, 40 MG PO BID for 30 Days, #60 TAB Prov:BEKA CHANDLER MD 05/24/23 Pantoprazole Sodium Sesquihydr (Protonix) 40 Mg Tab, 40 MG PO BID, #60 TAB Prov:ROMY RGEEN MD 11/22/22 Docusate Sodium (Colace) 100 Mg Cap, 1 CAP PO BID PRN, #30 CAP Prov:BRIGITTE HAGER MD 11/29/21 Sucralfate (CARAFATE) 1 Gm Tab, 1 GM PO QIDACHS for 30 Days, #120 TAB Prov:BRIGITTE HAGER MD 10/22/21 Metformin Hydrochloride (Metformin Hcl) 850 Mg Tab, 1 TAB PO BID, #60 TAB Prov:BRIGITTE HAGER MD 10/22/21 Reported Medications Ondansetron Odt 4MG Tab (ZOFRAN PO) 4 Mg Tb, 8 MG PO, TAB ODT TAB-DISSOLVE IN MOUTH, THEN SWALLOW 05/06/24 Metformin HCl (Metformin Hydrochloride) 1,000 Mg Tab, 1000 MG PO BID, TAB 05/06/24 Lisinopril (Lisinopril) 10 Mg Tab, 10 MG PO DAILY for 30 Days, MG 01/31/23 Hydroxyzine Hcl (Hydroxyzine Hcl) 25 Mg Tab, 25 MG PO for anxiety, TAB 11/20/22 Rosuvastatin Calcium (Crestor) 5 Mg Tab, 5 MG PO, TAB 10/22/21 Mode of Arrival: EMS Past Medical History PAST MEDICAL HISTORY: DM, GERD, High Lipids, HTN, Thyroid Surgical History: Cholecystectomy, Hysterectomy 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 History Family History Family History: Family hx of DM Social History Smoker: Non-Smoker Alcohol: Denies ETOH Use Drugs: Marijuana Lives In: Home Constitutional: denies: chills, diaphoresis, fatigue, fever, malaise, sweats, weakness, others EENTM: denies: blurred vision, double vision, ear bleeding, ear discharge, ear drainage, ear pain, ear ringing, eye pain, eye redness, hearing loss, mouth pain, mouth swelling, nasal discharge, nose bleeding, nose congestion, nose pain, photophobia, tearing, throat pain, throat swelling, voice changes, others Cardiovascular: denies: chest pain, dizzy spells, diaphoresis, Dyspnea on exertion, edema, irregular heart beat, left arm pain, lightheadedness, palpitations, PND, syncope, others Gastrointestinal: reports: abdomen distended, abdominal pain, constipated, nausea, vomiting; denies: blood streaked bowels, diarrhea, dysphagia, difficulty swallowing, hematemesis, melena, poor appetite, poor fluid intake, rectal bleeding, rectal pain, others Genitourinary: denies: abnormal vagina bleeding, burning, dyspareunia, dysuria, flank pain, frequency, hematuria, incontinence, pain, , vagina discharge, urgency, others Neurological: denies: dizziness, fainting, headache, left sided numbness, left sided weakness, numbness, paresthesia, pre-existing deficit, right sided numbness, right sided weakness, seizure, speech problems, tingling, tremors, weakness, others Musculoskeletal: denies: back pain, gout, joint pain, joint swelling, muscle pain, muscle stiffness, neck pain, others Integumetry: denies: bruises, change in color, change in hair/nails, dryness, laceration, lesions, lumps, rash, wounds, others Allergic/Immunocompromised: denies: Difficulty Healing, Frequent Infections, Hives, Itching, others Hematologic/Lymphatic: denies: anemia, blood clots, easy bleeding, easy bruising, swollen glands, others Endocrine: denies: excessive hunger, excessive sweating, excessive thirst, excessive urination, flushing, intolerance to cold, intolerance to heat, unexplained weight gain, unexplained weight loss, others Psychiatric: denies: anxiety, bipolar disorder, depression, hopeless, panic disorder, schizophrenia, sleepless, suicidal, others Physical Exam General Appearance: No Apparent Distress, Normal HEENT: Pharynx Normal Neck: Full Range of Motion, Non-Tender Respiratory: Lungs Clear, No Respiratory Distress, Normal Breath Sounds Cardiovascular: No Edema, No JVD, No Murmur, No Gallop, Normal Peripheral Pulses, Regular Rate/Rhythm Breast Exam: Deferred Gastrointestinal: Diffuse (Tenderness), Distended, No Organomegaly, No Pulsatile Mass, Normal Bowel Sounds, Soft Genitalia: Deferred Pelvic: Deferred Rectal: Deferred Extremities: Normal capillary refill, Normal inspection, Normal range of motion, Non-tender, No pedal edema Musculoskeletal : Apperance: Normal 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 Was a procedure done?: No GI differential Dx Differential Diagnosis: Gastroenteritis, UTI, Impaction X-Ray, Labs, Meds, VS Vital Signs Date Time Temp Pulse Resp B/P (MAP) Pulse Ox O2 Delivery O2 Flow Rate FiO2 01/11/25 16:07 99.0 70 14 106/62 (77) 98 99.0 X-Ray, Labs, Meds, VS Comment PATIENT CALLED OUT IN THE LOBBY X3 BY RADIOLOGY AND LAB ALSO BY THIS PROVIDER NO ANSWER OUTSIDE CHECKED INTENSE NO ANSWER. Time of 1ST Reevaluation: 17:20 Reevaluation 1ST: Unchanged Patient Education/Counseling: Diagnosis, Treatment, Prognosis, Need For Follow Up Family Education/Counseling: Diagnosis, Treatment, Prognosis, Need For Follow Up Departure 1 Departure Time of Disposition: 19:19 Impression: Primary Impression: Nausea & vomiting Qualified Codes: R11.2 - Nausea with vomiting, unspecified Additional Impression: Abdominal pain Qualified Codes: R10.9 - Unspecified abdominal pain Disposition: 07 LEFT AWOL/ELOPED Condition: Stable Discharged With: Friend Critical Care Note Critical Care Time?: No Stability Stability form required: CRISTHIAN Lima Jan 11, 2025 17:06
[2025-01-11] MEDS ORDERED: SODIUM CHLORIDE 0.9% 1,000 ML IV ONE (17:15)
[2025-01-11] MEDS ORDERED: ONDANSETRON HCL 4 MG/2 ML VIAL IV ONE (17:15)
[2025-01-11] MEDS ORDERED: FAMOTIDINE (10MG/ML) 2ML VL IV ONE (17:15)
[2025-01-12] MEDS ORDERED: ESCI1TAB36 PO (07:27)
[2025-01-12] MEDS ORDERED: SIMV5TAB14 PO (07:27)
[2025-01-12] MEDS ORDERED: LISI-275 PO (07:27)
== END 2025-01-11 19:22 | disposition left against medical advice (07) ==
LOC: ER 16:03 → EDBD 16:03 → ER 19:22
DX: R11.2 Nausea with vomiting, unspecified (principal); R10.9 Unspecified abdominal pain; E11.9 Type 2 diabetes mellitus without complications; I10 Essential (primary) hypertension; K21.9 Gastro-esophageal reflux disease without esophagitis; E78.5 Hyperlipidemia, unspecified; Z90.49 Acquired absence of other specified parts of digestive tract; Z90.710 Acquired absence of both cervix and uterus; Z79.84 Long term (current) use of oral hypoglycemic drugs; Z79.899 Other long term (current) drug therapy; Z88.0 Allergy status to penicillin; Z88.2 Allergy status to sulfonamides; Z88.8 Allergy status to other drugs, medicaments and biological substances

== ENCOUNTER 2025-01-12 02:47 | Inpatient (IN) | payer MEDICAID ==
[2025-01-12] VITALS (7 sets, daily range): BP systolic 100–172; BP diastolic 64–118; PULSE 57–83; RESP 11–19; TEMP 98.1–98.7; O2SAT 93–98
[~2025-01-12] VITALS: Ht 165.1 cm; Wt 59.0 kg
--- NOTE | 2025-01-12 03:25 | ED.PDOC ---
GI ASSESSMENT HPI Comments 39 year old female presents to the ED with a chief complaint of abdominal pain onset 3 days. Patient took ex-lax laxative 3 days ago and since then has been experiencing epigastric pain as well as nausea/vomiting. PMHx DM, GERD, HLD, HTN. Denies chest pain, shortness of breath, diarrhea, dizziness, headache, dysuria, hematuria. No other symptoms or modifying factors present at this time, Chief Complaint: Abdominal Pain Time Seen by MD: 03:20 Primary Care Provider: GUIDO WOODS Reviewed Notes: Medications, Allergies Allergies: Coded Allergies: Gluten Meal (Verified Allergy, Severe, 05/30/24) Promethazine (Verified Allergy, Severe, 10/25/23) Wheat (Verified Allergy, Severe, 05/30/24) Metoclopramide (Verified Allergy, Intermediate, jittery, 10/25/23) Sulfa Antibiotics (Verified Allergy, Mild, 10/25/23) Penicillins (Verified Allergy, Unknown, 10/25/23) Home Meds Active Scripts Ondansetron Odt 4MG Tab (ZOFRAN PO) 4 Mg Tb, 4 MG PO Q6HP PRN, #20 TAB ODT TAB-DISSOLVE IN MOUTH, THEN SWALLOW Prov:MARK HATFIELD MD 05/08/24 Metronidazole (Flagyl) 500 Mg Tab, 500 MG PO TID for 7 Days, #21 TAB Prov:MARK HATFIELD MD 05/08/24 Nystatin (Mouth-Throat) (Mycostatin (Mouth-Throat)) 500,000 Units/5 Ml Ss, 5 ML MT TID for 7 Days, #150 ML Prov:TONI LIEBERMAN MD 12/03/23 Sucralfate (CARAFATE) 1 Gm Tab, 1 GM PO QPM for 30 Days, #30 TAB Prov:TONI LIEBERMAN MD 12/03/23 Pantoprazole Sodium Sesquihydr (Protonix) 40 Mg Tab, 40 MG PO DAILY for 30 Days, #30 TAB 2 Refills Prov:TONI LIEBERMAN MD 12/03/23 Nystatin (Mouth-Throat) (Mycostatin (Mouth-Throat)) 500,000 Units/5 Ml Ss, 5 ML MT QID for 10 Days, #200 ML Prov:YAZ JACK RESIDENT 2/14/24 Pantoprazole Sodium Sesquihydr (Protonix) 40 Mg Tab, 40 MG PO DAILY, #30 TAB Prov:BEKA CHANDLER MD 05/24/23 Pantoprazole Sodium Sesquihydr (Protonix) 40 Mg Tab, 40 MG PO BID for 30 Days, #60 TAB Prov:BEKA CHANDLER MD 05/24/23 Pantoprazole Sodium Sesquihydr (Protonix) 40 Mg Tab, 40 MG PO BID, #60 TAB Prov:ROMY GREEN MD 11/22/22 Docusate Sodium (Colace) 100 Mg Cap, 1 CAP PO BID PRN, #30 CAP Prov:BRIGITTE HAGER MD 11/29/21 Sucralfate (CARAFATE) 1 Gm Tab, 1 GM PO QIDACHS for 30 Days, #120 TAB Prov:BRIGITTE HAGER MD 10/22/21 Metformin Hydrochloride (Metformin Hcl) 850 Mg Tab, 1 TAB PO BID, #60 TAB Prov:BRIGITTE HAGER MD 10/22/21 Reported Medications Ondansetron Odt 4MG Tab (ZOFRAN PO) 4 Mg Tb, 8 MG PO, TAB ODT TAB-DISSOLVE IN MOUTH, THEN SWALLOW 05/06/24 Metformin HCl (Metformin Hydrochloride) 1,000 Mg Tab, 1000 MG PO BID, TAB 05/06/24 Lisinopril (Lisinopril) 10 Mg Tab, 10 MG PO DAILY for 30 Days, MG 01/31/23 Hydroxyzine Hcl (Hydroxyzine Hcl) 25 Mg Tab, 25 MG PO for anxiety, TAB 11/20/22 Rosuvastatin Calcium (Crestor) 5 Mg Tab, 5 MG PO, TAB 10/22/21 Information Source: Patient Mode of Arrival: Ambulatory Timing: Days Duration: Since onset Prehospital treatment: None Quality: Sharp Severity: Moderate Recent: None Recent Hx of: None Pain Location: Epigastric Modifying Factors: Nothing Associated sign and symptoms: Nausea, Vomiting, Abdominal Pain Past Medical History PAST MEDICAL HISTORY: DM, GERD, High Lipids, HTN, Thyroid Surgical History: Cholecystectomy, Hysterectomy 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 History Family History Family History: Family hx of DM Social History Smoker: Non-Smoker Alcohol: Denies ETOH Use Drugs: Marijuana Lives In: Home Constitutional: denies: chills, diaphoresis, fatigue, fever, malaise, sweats, weakness, others EENTM: denies: blurred vision, double vision, ear bleeding, ear discharge, ear drainage, ear pain, ear ringing, eye pain, eye redness, hearing loss, mouth pain, mouth swelling, nasal discharge, nose bleeding, nose congestion, nose pain, photophobia, tearing, throat pain, throat swelling, voice changes, others Respiratory: denies: cough, hemoptysis, orthopnea, SOB at rest, shortness of breath, SOB with excertion, stridor, wheezing, others Cardiovascular: denies: chest pain, dizzy spells, diaphoresis, Dyspnea on exertion, edema, irregular heart beat, left arm pain, lightheadedness, palpitations, PND, syncope, others Gastrointestinal: reports: abdominal pain, nausea, vomiting; denies: abdomen distended, blood streaked bowels, constipated, diarrhea, dysphagia, difficulty swallowing, hematemesis, melena, poor appetite, poor fluid intake, rectal bleeding, rectal pain, others Genitourinary: denies: abnormal vagina bleeding, burning, dyspareunia, dysuria, flank pain, frequency, hematuria, incontinence, pain, , vagina discharge, urgency, others Neurological: denies: dizziness, fainting, headache, left sided numbness, left sided weakness, numbness, paresthesia, pre-existing deficit, right sided numbn ess, right sided weakness, seizure, speech problems, tingling, tremors, weakness, others Musculoskeletal: denies: back pain, gout, joint pain, joint swelling, muscle pain, muscle stiffness, neck pain, others Integumetry: denies: bruises, change in color, change in hair/nails, dryness, laceration, lesions, lumps, rash, wounds, others Allergic/Immunocompromised: denies: Difficulty Healing, Frequent Infections, Hives, Itching, others Hematologic/Lymphatic: denies: anemia, blood clots, easy bleeding, easy bruising, swollen glands, others Endocrine: denies: excessive hunger, excessive sweating, excessive thirst, excessive urination, flushing, intolerance to cold, intolerance to heat, unexplained weight gain, unexplained weight loss, others Psychiatric: denies: anxiety, bipolar disorder, depression, hopeless, panic disorder, schizophrenia, sleepless, suicidal, others All Other Systems: Reviewed and Negative Physical Exam General Appearance: No Apparent Distress, Normal HEENT: Normal ENT Inspection, Pharynx Normal, TMs Normal Neck: Full Range of Motion, Non-Tender, Normal, Normal Inspection Respiratory: Chest Non-Tender, Lungs Clear, No Accessory Muscle Use, No Respiratory Distress, Normal Breath Sounds Cardiovascular: No Edema, No JVD, No Murmur, No Gallop, Normal Peripheral Pulses, Regular Rate/Rhythm Breast Exam: Deferred Gastrointestinal: No Organomegaly, Non Tender, No Pulsatile Mass, Normal Bowel Sounds, Soft Genitalia: Deferred Pelvic: Deferred Rectal: Deferred Extremities: No calf tenderness, Normal capillary refill, Normal inspection, Normal range of motion, Non-tender, No pedal edema Musculoskeletal : Apperance: Normal 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 Was a procedure done?: No GI differential Dx Differential Diagnosis: Appendicitis, Gastroenteritis, GI hemorrhage, Hepatitis, Dehydration, Electrolyte Imbalance, Viral X-Ray, Labs, Meds, VS Vital Signs Date Time Temp Pulse Resp B/P (MAP) Pulse Ox O2 Delivery O2 Flow Rate FiO2 01/12/25 05:09 94 26 154/100 01/12/25 04:24 97 26 154/100 (118) 96 01/12/25 04:20 70 13 96 Room Air* 0 21 01/12/25 03:16 98.5 70 13 168/96 (120) 96 98.5 01/12/25 02:49 99.0 91 18 171/112 (131) 97 99.0 Lab Test 01/12/25 03:25 Range/Units White Blood Count 16.7 H 4.4-10.8 10^3/uL Red Blood Count 5.88 H 4.0-5.20 10^6/uL Hemoglobin 16.0 12.2-16.2 g/dL Hematocrit 47.1 H 36.0-46.0 % Mean Corpuscular Volume 80.1 80.0-100.0 fL Mean Corpuscular Hemoglobin 27.2 L 28.0-32.0 pg Mean Corpuscular Hemoglobin Concent 34.0 32.0-36.0 g/dL Red Cell Distribution Width 14.4 H 11.8-14.3 % Platelet Count 350 140-450 10^3/uL Mean Platelet Volume 9.4 6.9-10.8 fL Neutrophils (%) (Auto) 79.8 37.0-80.0 % Lymphocytes (%) (Auto) 12.8 10.0-50.0 % Monocytes (%) (Auto) 7.0 0.0-12.0 % Eosinophils (%) (Auto) 0.0 0.0-7.0 % Basophils (%) (Auto) 0.4 0.0-2.0 % Neutrophils # (Auto) 13.3 H 1.6-8.6 10 ^3/uL Lymphocytes # (Auto) 2.1 0.4-5.4 10 ^3/uL Monocytes # (Auto) 1.2 0-1.3 10 ^3/uL Eosinophils # (Auto) 0 0-0.8 10 ^3/uL Basophils # (Auto) 0.1 0-0.2 10 ^3/uL Nucleated Red Blood Cells 0.0 % Sodium Level 139 136-145 mmol/L Potassium Level 3.1 L 3.5-5.1 mmol/L Chloride Level 100 98-107 mmol/L Carbon Dioxide Level 25 20-31 mmol/L Anion Gap 14 5-15 Blood Urea Nitrogen 28 H 9-23 mg/dL Creatinine 1.19 H 0.550-1.02 mg/dL Glomerular Filtration Rate Calc 60 >90 mL/min BUN/Creatinine Ratio 23.5 H 10.0-20.0 Serum Glucose 232 H 74-106 mg/dL Lactic Acid Level 3.1 *H 0.4-2.0 mmol/L Calcium Level 10.8 H 8.7-10.4 mg/dL Current Medications Medications (Trade) Dose Ordered Sig/Germania Route Start Time Stop Time Status Last Admin Sodium Chloride 1,000 ml @ 1,000 mls/hr Q1H ONCE IV 01/12/25 03:15 01/12/25 04:14 DC 01/12/25 03:51 Ondansetron HCl (Zofran) 4 mg ONCE ONCE IV 01/12/25 03:15 01/12/25 03:20 DC 01/12/25 03:45 Ketorolac Tromethamine (Toradol Injection) 15 mg ONCE ONCE IV 01/12/25 03:30 01/12/25 03:31 DC 01/12/25 03:45 Pantoprazole Sodium (Protonix) 40 mg ONCE ONCE IV 01/12/25 03:30 01/12/25 03:31 DC 01/12/25 03:45 Morphine Sulfate 4 mg ONCE ONCE IV 01/12/25 04:45 01/12/25 05:00 DC 01/12/25 05:09 Time of 1ST Reevaluation: 03:50 Reevaluation 1ST: Unchanged Patient Education/Counseling: Diagnosis, Treatment, Prognosis Family Education/Counseling: No Family Present Additional Information The following tests were ordered, and results were reviewed by me: BMP, CBC, UA I discussed treatment and results with medical personnel and: patient Comprehensive systems review obtained and negative except for what is stated in the HPI. Departure 1 Departure Time of Disposition: 05:43 (Patient presented with abdominal pain that was concerning for possible appendicits, gastritis, cholecystitis, colitis, gastroenteritis, sbo, or orther possible surgical emergency. Data: 1. I ordered and reviewed the result of at least 3 labs including a CBC, BMP, and Urinalysis. 2. I independently interpreted the following tests: CT Abdoment and Pelvis is concerning for gastritis .Risk:This patient has a high risk of morbidity due to further diagnostic testing or treatment and may suffer from an acute abdominal process disorder. Workup reveals intractable abdominal pain and patient should be admitted for further workup. and possible expert consultation. ) Impression: Primary Impression: Intractable abdominal pain Additional Impressions: Dehydration Projectile vomiting Qualified Codes: R11.12 - Projectile vomiting Disposition: ADMITTED INPATIENT Admit to: Med Surg Condition: Serious Critical Care Note Critical Care Time?: No Stability Stability form required: No I personally scribed for LAUREL MCLEAN MD ([email or web address]) on 01/12/25 at 03:25. Electronically submitted by Kristina Segundo ([email or web address]). I personally scribed for LAUREL MCLEAN MD ([email or web address]) on 01/12/25 at 03:26. Electronically submitted by Kristina Segundo ([email or web address]). LAUREL MCLEAN MD January 12, 2025 03:25
[2025-01-12 03:38] LABS: Basophils # (auto) 0.1 10 ^3/uL (0-0.2); Eosinophils # (auto) 0 10 ^3/uL (0-0.8)
[2025-01-12 03:40] LABS: Basophils % (auto) 0.4 % (0.0-2.0); Hematocrit 47.1 % (36.0-46.0); Lymphocytes # (auto) 2.1 10 ^3/uL (0.4-5.4); Lymphocytes % (auto) 12.8 % (10.0-50.0); Mean Corpuscular Hemoglobin 27.2 pg (28.0-32.0); Mean Corpuscular Volume 80.1 fL (80.0-100.0); Monocytes # (auto) 1.2 10 ^3/uL (0-1.3); Neutrophils # (auto) 13.3 10 ^3/uL (1.6-8.6); Neutrophils % (auto) 79.8 % (37.0-80.0); Platelet Count (auto) 350 10^3/uL (140-450); Red Blood Cells 5.88 10^6/uL (4.0-5.20); Red Cell Distribution Width 14.4 % (11.8-14.3); White Blood Cell 16.7 10^3/uL (4.4-10.8)
[2025-01-12] MEDS: PANTOPRAZOLE 40 MG/10 ML VIAL INJ IV ONE (03:45)
[2025-01-12] MEDS: ONDANSETRON HCL 4 MG/2 ML VIAL IV ONE (03:45)
[2025-01-12] MEDS: KETOROLAC TROMETH 30 MG/ML 1ML VIAL IV ONE (03:45)
[2025-01-12 03:50] LABS: Chloride 100 mmol/L (98-107); Sodium 139 mmol/L (136-145)
[2025-01-12 03:51] LABS: Anion Gap 14 (5-15); Carbon Dioxide 25 mmol/L (20-31)
[2025-01-12] MEDS: SODIUM CHLORIDE 0.9% 1,000 ML IV ONE ×2 (03:51→05:58)
[2025-01-12 03:56] LABS: BUN/Creatinine Ratio 23.5 (10.0-20.0)
[2025-01-12 03:58] LABS: Blood Urea Nitrogen 28 mg/dL (9-23); Calcium 10.8 mg/dL (8.7-10.4); Glucose 232 mg/dL (74-106); Potassium 3.1 mmol/L (3.5-5.1)
[2025-01-12] MEDS: IOHEXOL 300 MG/ML 100ML BOTTLE IJ ONE (04:58)
[2025-01-12] MEDS: MORPHINE SULFATE 4 MG/ML SYR/VIAL IV ONE (05:09)
--- NOTE | 2025-01-12 05:15 | DVH ---
EXAM: CT Abdomen and Pelvis With Intravenous Contrast CLINICAL INDICATION: abdominal pain TECHNIQUE: Axial computed tomography images of the abdomen and pelvis with intravenous contrast. Th is CT exam was performed using one or more of the following dose reduction techniques: automated exp osure control, adjustment of the mA and/or kV according to patient size, and/or use of iterative sandro nstruction technique. CONTRAST: COMPARISON: CT CT AB PEL WITH IV CON ONLY on DOS: 11/24/24, CT CT AB PEL WITH IV CON ONLY on DOS: FINDINGS: ARTIFACTS: Motion artifact. LUNG BASES: Unremarkable. No mass. No consolidation. MEDIASTINUM: Small esophageal hiatal hernia. ABDOMEN: LIVER: Fatty infiltration of the liver. GALLBLADDER AND BILE DUCTS: Gallbladder is surgically absent. No ductal dilation. PANCREAS: Unremarkable. No mass. No ductal dilation. SPLEEN: Unremarkable. No splenomegaly. ADRENALS: Unremarkable. No mass. KIDNEYS AND URETERS: Unremarkable. No stones within either kidney. No hydronephrosis. STOMACH AND BOWEL: Colonic diverticulosis without acute diverticulitis. No obstruction. PELVIS: APPENDIX: No findings to suggest acute appendicitis. BLADDER: Unremarkable. No mass. REPRODUCTIVE: Unremarkable as visualized. ABDOMEN and PELVIS: INTRAPERITONEAL SPACE: Unremarkable. No free air. No significant fluid collection. BONES/JOINTS: No acute fracture. No dislocation. SOFT TISSUES: Unremarkable. VASCULATURE: Unremarkable. No abdominal aortic aneurysm. LYMPH NODES: Unremarkable. No enlarged lymph nodes. OTHER FINDINGS: . . . IMPRESSION: 1. Small esophageal hiatal hernia. 2. No obstructive uropathy. 3. Colonic diverticulosis without acute diverticulitis.
[2025-01-12 05:22] LABS: Lactic Acid w/Reflex 3.1 mmol/L (0.4-2.0)
[2025-01-12] MEDS: HALOPERIDOL LACTATE 5 MG/ML INJ VIAL IM ONE (06:04)
[2025-01-12 07:19] LABS: Urine Bacteria None Seen /hpf (None Seen)
[2025-01-12] MEDS ORDERED: ESCI1TAB36 PO (07:27)
[2025-01-12] MEDS ORDERED: LISI-275 PO (07:27)
[2025-01-12] MEDS ORDERED: SIMV5TAB14 PO (07:27)
[2025-01-12] MEDS ORDERED: DEXTROSE (50%) 50ML SYRG IV PRN (07:30)
[2025-01-12] MEDS ORDERED: hydrOXYzine 25 MG TAB or CAP PO PRN (07:30)
[2025-01-12] MEDS ORDERED: HYDROcodone-ACET 5/325MG TAB PO PRN (07:30)
[2025-01-12] MEDS ORDERED: ACETAMINOPHEN 325 MG TAB PO PRN (07:30)
--- NOTE | 2025-01-12 07:35 | DVHHP2 ---
History of Present Illness Reason for Visit: Abdominal pain History of Present Illness Danae Medrano is a 39-year-old female with past medical history of hypertension, hyperlipidemia, diabetes, celiac disease, EGD, thyroid disease, GERD, cholecystectomy, and hysterectomy who presents to the ED with abdominal pain x3 days with nausea and vomiting. Patient states that the pain is 8/10 burning and constant. She also states that she was having constipation at home and was taking Ex-Lax to help with the symptoms. She also reports that she does not use home oxygen however upon examination patient is currently on 2 L nasal cannula. Patient denies any recent travels, recent sick contacts, recent ingestion of spoiled food, recent trauma or injury, chest pain, shortness of breath, fever, chills, lightheadedness, weakness, dizziness, or diarrhea. She does report that she uses marijuana, does not smoke cigarettes, and quit drinking. Cardiovascular: HTN, hyperipidemia GI: GERD, Other (Celiac disease) Endocrine: Diabetes, Hypothyroidism Past Surgical History: Cholecystectomy, Hysterectomy, Other (EGD) Family History: DM, Other (Mom with diabetes and , dad with diabetes) Smoke: # pack years ALCOHOL: none (Quit) Drugs: Marijuana Lives: with Family Domestic Violence: Neg Review of Systems Gastrointestinal: Nausea, Vomiting, Abdominal Pain Allergies: Coded Allergies: Gluten Meal (Verified Allergy, Severe, 05/30/24) Promethazine (Verified Allergy, Severe, 10/25/23) Wheat (Verified Allergy, Severe, 05/30/24) Metoclopramide (Verified Allergy, Intermediate, jittery, 10/25/23) Sulfa Antibiotics (Verified Allergy, Mild, 10/25/23) Penicillins (Verified Allergy, Unknown, 10/25/23) Medications Current Medications Medications Dose Ordered Sig/Germania Route Start Time Stop Time Status Last Admin Dose Admin Ceftriaxone Sodium 50 ml @ 100 mls/hr DAILY@09 IV 01/12/25 07:30 UNV Diagnostic Test (Pha) 1 strip ACHS 01/12/25 11:30 UNV Insulin Human Regular ACHS SC 01/12/25 11:30 UNV Dextrose 50 ml UD PRN IV 01/12/25 07:30 UNV Acetaminophen/ Hydrocodone Bitart 1 tab Q4HP PRN PO 01/12/25 07:30 UNV Ondansetron HCl 4 mg Q4HP PRN IV 01/12/25 07:30 UNV Acetaminophen 650 mg Q6HP PRN PO 01/12/25 07:30 UNV Morphine Sulfate 2 mg Q4HPRN PRN IV 01/12/25 07:30 UNV Hydralazine HCl 10 mg Q6HR IV 01/12/25 12:00 UNV Pantoprazole Sodium 40 mg DAILY IV 01/12/25 10:00 UNV Sucralfate 1 gm QIDACHS PO 01/12/25 11:30 UNV Patient Own Medication 10 mg DAILY PO 01/12/25 10:00 UNV Hydroxyzine Pamoate 25 mg Q6HP PRN PO 01/12/25 07:30 UNV Exam Vital Signs Vital Signs Date Time Temp Pulse Resp B/P (MAP) Pulse Ox O2 Delivery O2 Flow Rate FiO2 01/12/25 06:00 99.1 68 10 93/51 (65) 93 99.1 01/12/25 03:20 Room Air* 0 21 General Appearance: Alert, Oriented X3, Cooperative, No acute distress HEENT: Atraumatic, PERRLA, EOMI, Mucous membr. moist/pink Respiratory: Clear to auscultation, Normal air movement Cardiovascular: Regular rate, Normal S1, Normal S2, No murmurs Abdominal: Normal bowel sounds, Soft Extremities: No clubbing, No cyanosis, No edema Skin: No significant lesion Neuro: Normal speech, Strength at 5/5 X4 ext, Normal tone, Sensation intact Psych/Mental Status: Mental status NL, Mood NL Labs/Xrays Labs Test 01/12/25 06:20 01/12/25 05:45 01/12/25 03:25 Range/Units Lactic Acid Level 1.4 0.4-2.0 mmol/L White Blood Count 16.7 H 4.4-10.8 10^3/uL Red Blood Count 5.88 H 4.0-5.20 10^6/uL Hemoglobin 16.0 12.2-16.2 g/dL Hematocrit 47.1 H 36.0-46.0 % Mean Corpuscular Volume 80.1 80.0-100.0 fL Mean Corpuscular Hemoglobin 27.2 L 28.0-32.0 pg Mean Corpuscular Hemoglobin Concent 34.0 32.0-36.0 g/dL Red Cell Distribution Width 14.4 H 11.8-14.3 % Platelet Count 350 140-450 10^3/uL Mean Platelet Volume 9.4 6.9-10.8 fL Neutrophils (%) (Auto) 79.8 37.0-80.0 % Lymphocytes (%) (Auto) 12.8 10.0-50.0 % Monocytes (%) (Auto) 7.0 0.0-12.0 % Eosinophils (%) (Auto) 0.0 0.0-7.0 % Basophils (%) (Auto) 0.4 0.0-2.0 % Neutrophils # (Auto) 13.3 H 1.6-8.6 10 ^3/uL Lymphocytes # (Auto) 2.1 0.4-5.4 10 ^3/uL Monocytes # (Auto) 1.2 0-1.3 10 ^3/uL Eosinophils # (Auto) 0 0-0.8 10 ^3/uL Basophils # (Auto) 0.1 0-0.2 10 ^3/uL Nucleated Red Blood Cells 0.0 % Sodium Level 139 136-145 mmol/L Potassium Level 3.1 L 3.5-5.1 mmol/L Chloride Level 100 98-107 mmol/L Carbon Dioxide Level 25 20-31 mmol/L Anion Gap 14 5-15 Blood Urea Nitrogen 28 H 9-23 mg/dL Creatinine 1.19 H 0.550-1.02 mg/dL Glomerular Filtration Rate Calc 60 >90 mL/min BUN/Creatinine Ratio 23.5 H 10.0-20.0 Serum Glucose 232 H 74-106 mg/dL Calcium Level 10.8 H 8.7-10.4 mg/dL EXAM: CT Abdomen and Pelvis With Intravenous Contrast CLINICAL INDICATION: abdominal pain TECHNIQUE: Axial computed tomography images of the abdomen and pelvis with intravenous contrast. This CT exam was performed using one or more of the following dose reduction techniques: automated exposure control, adjustment of the mA and/or kV according to patient size, and/or use of iterative reconstruction technique. CONTRAST: COMPARISON: CT CT AB PEL WITH IV CON ONLY on DOS: 11/24/24, CT CT AB PEL WITH IV CON ONLY on DOS: 05/27/24 FINDINGS: ARTIFACTS: Motion artifact. LUNG BASES: Unremarkable. No mass. No consolidation. MEDIASTINUM: Small esophageal hiatal hernia. ABDOMEN: LIVER: Fatty infiltration of the liver. GALLBLADDER AND BILE DUCTS: Gallbladder is surgically absent. No ductal dilation. PANCREAS: Unremarkable. No mass. No ductal dilation. SPLEEN: Unremarkable. No splenomegaly. ADRENALS: Unremarkable. No mass. KIDNEYS AND URETERS: Unremarkable. No stones within either kidney. No hydronephrosis. STOMACH AND BOWEL: Colonic diverticulosis without acute diverticulitis. No obstruction. PELVIS: APPENDIX: No findings to suggest acute appendicitis. BLADDER: Unremarkable. No mass. REPRODUCTIVE: Unremarkable as visualized. ABDOMEN and PELVIS: INTRAPERITONEAL SPACE: Unremarkable. No free air. No significant fluid collection. BONES/JOINTS: No acute fracture. No dislocation. SOFT TISSUES: Unremarkable. VASCULATURE: Unremarkable. No abdominal aortic aneurysm. LYMPH NODES: Unremarkable. No enlarged lymph nodes. OTHER FINDINGS: . . . IMPRESSION: 1. Small esophageal hiatal hernia. 2. No obstructive uropathy. 3. Colonic diverticulosis without acute diverticulitis. Assessment/Plan Assessment/Plan Assessment Intractable abdominal pain probable colitis versus gastritis versus celiac flare-up Small esophageal hiatal hernia Colonic diverticulosis Leukocytosis likely due to colitis versus gastritis versus celiac flare-up Lactic acidosis rule out sepsis Acute hypoxic respiratory failure Hypokalemia Hypertensive urgency SHERRI Diabetes type 2 Marijuana use Ex alcohol use History of hypertension History of hyperlipidemia History of thyroid disease History of GERD History of EGD History of cholecystectomy History of hysterectomy Plan Admit to tele for monitoring UA Lactic Urine culture Blood culture IV antibiotics-ceftriaxone Replete lytes Hemoglobin A1c ISS and Accu-Cheks Supportive oxygen Antiemetics Pain management Bowel regimen Discussed nutrition such as following a celiac diet Home medications reconciled DVT prophylaxis-SCDs PUD prophylaxis-PPIs Discussed plan of care with patient and nurse Counseled patient on cessation of marijuana use Counseled patient on continuance of cessation of alcohol use Plan discussed with: Patient My Orders Orders - SARAH BETH FIG CAPRIFIER Procedure Category Date Status Time Ceftriaxone 1gm/50ml PHA 01/12/25 Logged D5w (Rocephin) 07:30 Potassium Er Tablet PHA 01/12/25 Logged (Klor-Con Tablet) 07:30 Glucose Blood PHA 01/12/25 Logged (Accu-Chek Comfort 11:30 Insulin R (Human) PHA 01/12/25 Logged (Insulin R) 11:30 Dextrose 50% Syringe PHA 01/12/25 Logged 07:30 Hemoglobin A1c LAB 01/12/25 Logged 07:21 Admit ADMIT 01/12/25 Transmitted 07:21 Allergies ADONIS 01/12/25 In Process 07:21 Code Status CODE 01/12/25 Transmitted 07:21 Hydrocodone-Acet PHA 01/12/25 Logged 5/325mg Tab ([place] 07:30 Ondansetron Hcl PHA 01/12/25 Logged (Zofran) 07:30 Complete Blood Count LAB 01/13/25 Verified 04:00 Comprehensive LAB 01/13/25 Verified Metabolic Panel 04:00 Cardiac DIET 01/12/25 Transmitted Diet-2gna,Lofat,Lochol Breakfast Acetaminophen Tablet PHA 01/12/25 Logged (Tylenol Tablet) 07:30 Morphine Sulfate PHA 01/12/25 Logged Injection 07:30 Hydralazine Injection PHA 01/12/25 Logged (Apresoline Inject 12:00 Pantoprazole PHA 01/12/25 Logged (Protonix) 10:00 Sucralfate Tab PHA 01/12/25 Logged (Carafate Tab) 11:30 (Nf) Lisinopril PHA 01/12/25 Logged 10:00 Hydroxyzine Oral PHA 01/12/25 Logged (Vistaril Oral) 07:30 Date of Service: January 12, 2025 Billing Provider: SARAH BETH Common Visit Codes: [id number] INP/OBS CARE (HIGH) SARAH BETH January 12, 2025 07:35
[2025-01-12 08:04] LABS: Opiate Scree,Urine Neg (NEGATIVE)
[2025-01-12 08:09] LABS: Amphetamine Screen, Urine Neg (NEGATIVE); Barbiturate Scree,Urine Neg (NEGATIVE); Benzodiazephine Screen, Urine Neg (NEGATIVE); Cannabinoid Screen, Urine Pos (NEGATIVE); Cocaine Screen, Urine Neg (NEGATIVE); Phencyclidine Screen, Urine Neg (NEGATIVE); Urine Blood Negative /uL (Negative); Urine Clarity Clear (Clear); Urine Color Yellow (Yellow); Urine Mucus FEW (None Seen); Urine Protein, UAD 1+ (Negative); Urine Specific Gravity 1.046 (1.001-1.035); Urine Squamous Epithelial Cell FEW /hpf (<5); Urine Urobilinogen Normal (Negative); Urine WBC 6 /HPF (0-5); Urine pH 6.5 (5.0-9.0)
[2025-01-12] MEDS ORDERED: POLYETHYLENE GLYCOL 17 GM PWDR PO PRN (08:45)
[2025-01-12] MEDS: cefTRIAXone 1GM/50ML D5W 50 ML IV SCH (09:19)
[2025-01-12] MEDS: POTASSIUM CHL 20 Meq TABLET PO ONE (09:19)
[2025-01-12] MEDS: POTASSIUM CHL 20MEQ/50ML 50 ML IV SCH (11:09)
[2025-01-12] MEDS: SODIUM CHL 0.9% 100 ML IV ONE (11:10)
[2025-01-12] MEDS: LISINOPRIL 5 MG TAB PO SCH (11:28)
[2025-01-12] MEDS: CITALOPRAM HYDROBR 20 MG TAB PO SCH (11:28)
[2025-01-12] MEDS: PANTOPRAZOLE 40 MG/10 ML VIAL INJ IV SCH (11:28)
[2025-01-12] MEDS: SUCRALFATE 1 GM TAB PO SCH (11:30)
[2025-01-12] MEDS ORDERED: hydrALAZINE HCL 20 MG/ML VL IV SCH (12:00)
[2025-01-12] MEDS: InsuLIN REG 1unit/0.01ml Soln (100units/ml) SC SCH (13:09)
[2025-01-12] MEDS: ACCU-CHEK COMFORT CURVE STRIP VI SCH (13:09)
[2025-01-12] MEDS: ONDANSETRON HCL 4 MG/2 ML VIAL IV PRN (13:20)
[2025-01-12] MEDS: MORPHINE SULFATE INJ 2 MG/ml SYRG IV PRN (13:23)
[2025-01-12] MEDS: hydrALAZINE HCL 20 MG/ML VL IV PRN (16:52)
[2025-01-12] MEDS: ATORVASTATIN 20 MG TAB PO SCH (22:14)
[2025-01-13] VITALS (8 sets, daily range): BP systolic 100–150; BP diastolic 58–100; PULSE 56–97; RESP 16–17; TEMP 98–98.4; O2SAT 95–99
[2025-01-13 06:47] LABS: Basophils # (auto) 0.1 10 ^3/uL (0-0.2); Basophils % (auto) 0.7 % (0.0-2.0); Eosinophils # (auto) 0 10 ^3/uL (0-0.8); Eosinophils % (auto) 0.1 % (0.0-7.0); Hematocrit 45.4 % (36.0-46.0); Hemoglobin 15.3 g/dL (12.2-16.2); Lymphocytes # (auto) 2.7 10 ^3/uL (0.4-5.4); Lymphocytes % (auto) 19.8 % (10.0-50.0); Mean Corpuscular Hemoglobin 27.4 pg (28.0-32.0); Mean Corpuscular Hgb Conc. 33.7 g/dL (32.0-36.0); Mean Corpuscular Volume 81.2 fL (80.0-100.0); Monocytes # (auto) 0.8 10 ^3/uL (0-1.3); Neutrophils # (auto) 9.9 10 ^3/uL (1.6-8.6); Neutrophils % (auto) 73.4 % (37.0-80.0); Platelet Count (auto) 320 10^3/uL (140-450); Red Blood Cells 5.59 10^6/uL (4.0-5.20); Red Cell Distribution Width 14.2 % (11.8-14.3); White Blood Cell 13.5 10^3/uL (4.4-10.8)
[2025-01-13 07:18] LABS: Alkaline Phosphatase 64 U/L (46-116); Anion Gap 12 (5-15); Aspartate Aminotransferase 17 U/L (13-40); BUN/Creatinine Ratio 15.2 (10.0-20.0); Blood Urea Nitrogen 10 mg/dL (9-23); Calcium 10.2 mg/dL (8.7-10.4); Carbon Dioxide 25 mmol/L (20-31); Chloride 104 mmol/L (98-107); Sodium 141 mmol/L (136-145); Total Protein 7.3 g/dL (5.7-8.2)
[2025-01-13 07:20] LABS: Glucose 148 mg/dL (74-106); Potassium 3.1 mmol/L (3.5-5.1)
[2025-01-13 07:31] LABS: Alanine Aminotransferase 21 U/L (7-40)
[2025-01-13 10:31] LABS: Hepatitis B Core IgM Negative (Negative); Hepatitis C Antibody Negative (Negative)
[2025-01-13] MEDS: POTASSIUM EFFERVESENT TAB 25 MEQ PO ONE (12:29)
[2025-01-13] MEDS: SODIUM CHLORIDE 0.9% 1,000 ML IV SCH (12:29)
[2025-01-13] MEDS: POTASSIUM CHLORIDE 60 MEQ, LIDOCAINE 1% (LOCAL ANESTH.) 6 ML in SODIUM CHL 0.9% 500 ML IV ONE (13:00)
--- NOTE | 2025-01-13 16:42 | DVHPN2 ---
Subjective still having nausea and not able to tolerate any po Changes from previous H/P or p: No Changes Gastrointestinal: Nausea, Vomiting, Abdominal Pain Objective Vitals Vital Signs Date Time Temp Pulse Resp B/P (MAP) Pulse Ox O2 Delivery O2 Flow Rate FiO2 01/13/25 15:29 67 16 144/96 01/13/25 13:00 98.2 96 98.2 01/12/25 08:00 Nasal Cannula* 2 28 Intake/Output Intake and Output 01/13/25 07:00 Intake Total 1225 ml Balance 1225 ml Intake Oral 1000 ml IV Total 225 ml # Voids 3 General Appearance: Alert, Oriented X3 HEENT: PERRLA, EOMI Lungs: Clear to auscultation Cardiovascular: Regular rate, Normal S1 Abdomen: Normal bowel sounds Medications Current Medications Medications Dose Ordered Sig/Germania Route Start Time Stop Time Status Last Admin Dose Admin Ceftriaxone Sodium 50 ml @ 100 mls/hr DAILY@09 IV 01/12/25 07:30 01/13/25 10:29 100 MLS/HR Diagnostic Test (Pha) 1 strip ACHS 01/12/25 11:30 01/13/25 10:48 1 STRIP Insulin Human Regular ACHS SC 01/12/25 11:30 01/13/25 10:52 2 UNITS Dextrose 50 ml UD PRN IV 01/12/25 07:30 Acetaminophen/ Hydrocodone Bitart 1 tab Q4HP PRN PO 01/12/25 07:30 Ondansetron HCl 4 mg Q4HP PRN IV 01/12/25 07:30 01/13/25 15:25 4 MG Acetaminophen 650 mg Q6HP PRN PO 01/12/25 07:30 Morphine Sulfate 2 mg Q4HPRN PRN IV 01/12/25 07:30 01/13/25 15:29 2 MG Hydralazine HCl 10 mg Q6HR IV 01/12/25 12:00 Hold Pantoprazole Sodium 40 mg DAILY IV 01/12/25 10:00 01/13/25 10:34 40 MG Sucralfate 1 gm QIDACHS PO 01/12/25 11:30 01/13/25 10:45 1 GM Lisinopril 10 mg DAILY PO 01/12/25 10:00 01/13/25 10:33 10 MG Hydroxyzine Pamoate 25 mg Q6HP PRN PO 01/12/25 07:30 Citalopram Hydrobromide 20 mg DAILY PO 01/12/25 10:00 01/13/25 10:33 20 MG Atorvastatin Calcium 5 mg HS PO 01/12/25 22:00 01/12/25 22:14 5 MG Polyethylene Glycol 17 gm DAILYPRN PRN PO 01/12/25 08:45 Hydralazine HCl 10 mg Q6HP PRN IV 01/12/25 16:15 01/12/25 23:53 10 MG Sodium Chloride 1,000 ml @ 125 mls/hr Q8H IV 01/13/25 12:00 01/13/25 12:29 125 MLS/HR Laboratory Results Laboratory Tests 01/13/25 05:53 Chemistry Test 01/13/25 05:53 Albumin 5.0 g/dL (3.2-4.8) H Calcium Level 10.2 mg/dL (8.7-10.4) Total Protein 7.3 g/dL (5.7-8.2) LFT Test 01/13/25 05:53 Alanine Aminotransferase (ALT) 21 U/L (7-40) Alkaline Phosphatase 64 U/L (46-116) Aspartate Amino Transferase (AST) 17 U/L (13-40) Total Bilirubin 1.0 mg/dL (0.2-1.0) Urinalysis Test 01/12/25 05:45 Urine Color Yellow (Yellow) Urine Clarity Clear (Clear) Urine pH 6.5 (5.0-9.0) Urine Specific [place] 1.046 (1.001-1.035) Urine Protein 1+ (Negative) H Urine Ketones 1+ (Negative) H Urine Blood Negative /uL (Negative) Urine Nitrite Negative (Negative) Urine Bilirubin Negative (Negative) Urine Urobilinogen Normal mg/dL (Negative) Urine Leukocyte Esterase Negative /uL (Negative) Urine RBC 1 /hpf (0 - 4) Urine Microscopic WBC 6 /HPF (0-5) H Urine Squamous Epithelial Cells Few /hpf (<5) Urine Bacteria None seen /hpf (None Seen) Urine Mucus Few (None Seen) Urine Glucose 3+ mg/dL (Normal) H Microbiology Microbiology Date/Time Source Procedure Growth Status 01/12/25 09:58 Blood Blood Culture - Preliminary NO GROWTH AFTER 24 HOURS OF INCUBATION. Resulted Assessment/Plan Assessment/Plan Intractable abdominal pain probable colitis versus gastritis versus celiac flare-up Small esophageal hiatal hernia Colonic diverticulosis Leukocytosis likely due to colitis versus gastritis versus celiac flare-up Lactic acidosis rule out sepsis Acute hypoxic respiratory failure Hypokalemia Hypertensive urgency SHERRI due to ATN, baseline creat 0.6 admit was 1.19 Diabetes type 2 Marijuana use Ex alcohol use History of hypertension History of hyperlipidemia History of thyroid disease History of GERD History of EGD History of cholecystectomy History of hysterectomy will start diet today. Unable to tolerate any po, required IV zofran IV K replacement K 3.1 today Plan discussed with: Patient My Orders Orders - WESLY SUTTON MD Procedure Category Date Status Time Sodium Chloride 0.9% PHA 01/13/25 In Process 12:00 Regular Diet DIET 01/13/25 Transmitted Lunch Potassium Chloride PHA 01/13/25 In Process (Potassium Chloride). 13:00 Date of Service: January 13, 2025 Billing Provider: WESLY SUTTON MD Common Visit Codes: [id number] INP/OBS CARE(HIGH) WESLY SUTTON MD January 13, 2025 16:42
[2025-01-14 01:00] VITALS: BP 104/68; PULSE 50; RESP 17; TEMP 97.7; O2SAT 98
[2025-01-14 05:00] VITALS: BP 139/95; PULSE 53; RESP 16; TEMP 98.2; O2SAT 99
[2025-01-14 09:00] VITALS: BP 108/67; PULSE 57; RESP 18; TEMP 97.9; O2SAT 99
[2025-01-14 12:46] VITALS: BP 126/82; PULSE 53; RESP 19; TEMP 98; O2SAT 100
[2025-01-14 14:47] VITALS: BP 135/92; PULSE 58; RESP 18; TEMP 98; O2SAT 98
== END 2025-01-14 15:40 | disposition home or self-care (01) | DRG 720 ==
LOC: ER 02:47 → OVERFLOW 07:21 → TELE-CENTR 07:35
PROVIDERS: ADMIT Hospitalist; ATTEND Hospitalist
DX: A41.9 Sepsis, unspecified organism (principal); J96.01 Acute respiratory failure with hypoxia; N17.0 Acute kidney failure with tubular necrosis; E87.20 Acidosis, unspecified; E11.9 Type 2 diabetes mellitus without complications; E03.9 Hypothyroidism, unspecified; E87.6 Hypokalemia; I16.0 Hypertensive urgency; K29.70 Gastritis, unspecified, without bleeding; K57.30 Diverticulosis of large intestine without perforation or abscess without bleeding; K44.9 Diaphragmatic hernia without obstruction or gangrene; K90.0 Celiac disease; K52.9 Noninfective gastroenteritis and colitis, unspecified; K21.9 Gastro-esophageal reflux disease without esophagitis; I10 Essential (primary) hypertension; E86.0 Dehydration; E78.5 Hyperlipidemia, unspecified; Z90.710 Acquired absence of both cervix and uterus; Z88.0 Allergy status to penicillin; Z83.3 Family history of diabetes mellitus; Z90.49 Acquired absence of other specified parts of digestive tract; Z88.2 Allergy status to sulfonamides; Z91.018 Allergy to other foods; Z79.84 Long term (current) use of oral hypoglycemic drugs; Z79.899 Other long term (current) drug therapy; Z88.8 Allergy status to other drugs, medicaments and biological substances
CPT/HCPCS: 36415; 74177; 80048; 80053; 80307; 81001; 82962; 83036; 83605; 85025; 86705; 86803; 87040; 87086; 96361; 96365; 96367; 96375; 96376; G0378; J1815; J1885; J2003; J2405; J2470

== ENCOUNTER 2025-03-16 01:36 | Inpatient (IN) | payer MEDICAID ==
[2025-03-16] VITALS (8 sets, daily range): BP systolic 140–181; BP diastolic 77–92; PULSE 47–73; RESP 12–22; TEMP 97.9–98.4; O2SAT 92–99
[~2025-03-16] VITALS: Ht 157.5 cm; Wt 61.6 kg
[~2025-03-16 01:36] MED LIST changes: +ESCI1TAB36 PO; +LISI-275 PO; +SIMV5TAB14 PO
--- NOTE | 2025-03-16 01:46 | ED.PDOC ---
GI ASSESSMENT HPI Comments 39 year old female presents to the ED via EMS with a chief complaint of nausea/vomiting onset 3 days. Per EMS, patient has been experiencing nausea/vomiting for the past 3 days as well as generalized weakness. She was given IV fluids in route, by EMS. PMHx HTN, HLD, DM, thyroid. Denies chest pain, dizziness, blurry vision, hematemesis, blood in stool, diarrhea, constipation, dysuria, hematuria. No other symptoms or modifying factors present at this time. Dr. Maza NOTE: Patient was initially seen and evaluated by Dr. Perales and placed for admission to the hospitalist. The need I was notified by nursing staff the patient needs some attention. I the patient's case. I added to the existing workup for abdominal pain: test, lipase, drug screen, Zofran, Protonix, and lidocaine viscous. Hydrocodone pill. CT scan of the abdomen and pelvis was ordered. It seems that sepsis protocol was initiated earlier. Patient was found with leukocytosis as well. Antibiotics were initiated earlier. Time Seen by MD: 01:35 Primary Care Provider: GUIDO WOODS Reviewed Notes: Medications, Allergies Allergies: Coded Allergies: Gluten Meal (Verified Allergy, Severe, 05/30/24) Promethazine (Verified Allergy, Severe, 10/25/23) Wheat (Verified Allergy, Severe, 05/30/24) Metoclopramide (Verified Allergy, Intermediate, jittery, 10/25/23) Sulfa Antibiotics (Verified Allergy, Mild, 10/25/23) Penicillins (Verified Allergy, Unknown, 10/25/23) Home Meds Reported Medications Alum & Mag Hydrox-Simethicone (ANTACID REGULAR STRENGTH) Reg [facility], 30 ML PO QID 03/16/25 Metformin Hydrochloride (Metformin Hcl) 1,000 Mg Tab, 1 TAB PO BID 03/16/25 Glipizide (Glipizide) 5 Mg Tab, 1 TAB PO QAM 03/16/25 Diphenhydramine Hcl (Banophen) 25 Mg Cap, 1 CAP PO QHSP PRN for ANXIETY 03/16/25 Ondansetron HCl (Ondansetron Hydrochloride) 8 Mg Tab, 1 TAB PO DAILYPRN 03/16/25 Simvastatin (Simvastatin) 5 Mg Tab, 1 TAB PO 01/12/25 Lisinopril (Lisinopril) 5 Mg Tab, 1 TAB PO DAILY 5/1/25 Escitalopram Oxalate (ESCITALOPRAM OXALATE) 10 Mg Tab, 1 TAB PO DAILY 01/12/25 Information Source: Patient, Emergency Med Personnel Mode of Arrival: EMS Timing: Days Duration: Since onset Prehospital treatment: IVF Severity: Moderate Recent: None Recent Hx of: None Modifying Factors: Nothing Associated sign and symptoms: Nausea, Vomiting Past Medical History PAST MEDICAL HISTORY: DM, GERD, High Lipids, HTN, Thyroid Surgical History: Cholecystectomy, Hysterectomy SENIOR HR GENERALIST History: No Pertinent SENIOR HR GENERALIST History Family History Family History: Family hx of DM Social History Smoker: Non-Smoker Alcohol: Denies ETOH Use Drugs: Marijuana Lives In: Home Constitutional: reports: weakness; denies: chills, diaphoresis, fatigue, fever, malaise, sweats, others EENTM: denies: blurred vision, double vision, ear bleeding, ear discharge, ear drainage, ear pain, ear ringing, eye pain, eye redness, hearing loss, mouth pain, mouth swelling, nasal discharge, nose bleeding, nose congestion, nose pain, photophobia, tearing, throat pain, throat swelling, voice changes, others Respiratory: denies: cough, hemoptysis, orthopnea, SOB at rest, shortness of breath, SOB with excertion, stridor, wheezing, others Cardiovascular: denies: chest pain, dizzy spells, diaphoresis, Dyspnea on exertion, edema, irregular heart beat, left arm pain, lightheadedness, palpitations, PND, syncope, others Gastrointestinal: reports: nausea, vomiting; denies: abdomen distended, abdomi nal pain, blood streaked bowels, constipated, diarrhea, dysphagia, difficulty swallowing, hematemesis, melena, poor appetite, poor fluid intake, rectal bleeding, rectal pain, others Genitourinary: denies: abnormal vagina bleeding, burning, dyspareunia, dysuria, flank pain, frequency, hematuria, incontinence, pain, , vagina discharge, urgency, others Neurological: reports: weakness; denies: dizziness, fainting, headache, left sided numbness, left sided weakness, numbness, paresthesia, pre-existing deficit, right sided numbness, right sided weakness, seizure, speech problems, tingling, tremors, others Musculoskeletal: denies: back pain, gout, joint pain, joint swelling, muscle pain, muscle stiffness, neck pain, others Integumetry: denies: bruises, change in color, change in hair/nails, dryness, laceration, lesions, lumps, rash, wounds, others Allergic/Immunocompromised: denies: Difficulty Healing, Frequent Infections, Hives, Itching, others Hematologic/Lymphatic: denies: anemia, blood clots, easy bleeding, easy bruising, swollen glands, others Endocrine: denies: excessive hunger, excessive sweating, excessive thirst, excessive urination, flushing, intolerance to cold, intolerance to heat, unexplained weight gain, unexplained weight loss, others Psychiatric: denies: anxiety, bipolar disorder, depression, hopeless, panic disorder, schizophrenia, sleepless, suicidal, others All Other Systems: Reviewed and Negative Physical Exam General Appearance: No Apparent Distress, Normal HEENT: Normal ENT Inspection, Pharynx Normal, TMs Normal Neck: Full Range of Motion, Non-Tender, Normal, Normal Inspection Respiratory: Chest Non-Tender, Lungs Clear, No Accessory Muscle Use, No Respiratory Distress, Normal Breath Sounds Cardiovascular: No Edema, No JVD, No Murmur, No Gallop, Normal Peripheral Pulses, Regular Rate/Rhythm Breast Exam: Deferred Gastrointestinal: No Organomegaly, Non Tender, No Pulsatile Mass, Normal Bowel Sounds, Soft Genitalia: Deferred Pelvic: Deferred Rectal: Deferred Extremities: No calf tenderness, Normal capillary refill, Normal inspection, Normal range of motion, Non-tender, No pedal edema Musculoskeletal : Apperance: Normal Neurologic: Alert, tamper operator II-XII nml as 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 Was a procedure done?: No GI differential Dx Differential Diagnosis: Other (DDX include Diverticulitis, colitis, gastroenteritis, acute abdomen, SBO, enteritis, constipation, volvulus, appendicitis, Gallbladder disease, choledocolithiasis, ascending cholangitis, pancreatitis, intraAbdominal mass/neoplasm, hepatitis, UTI, pylonephritis, kidney stone, aneurysm, dissection, Inflammatory bowel disease, gastroparesis, ischemic bowel, ovarian torsion, ovarian cyst/mass, tubo-ovarian abscess, pre gnancy, ectopic , PID, STD.) X-Ray, Labs, Meds, VS Vital Signs Date Time Temp Pulse Resp B/P (MAP) Pulse Ox O2 Delivery O2 Flow Rate FiO2 03/16/25 12:00 50 12 140/85 (103) 95 03/16/25 10:00 65 14 147/93 (111) 100 03/16/25 08:00 97.9 51 16 169/99 (122) 92 97.9 03/16/25 08:00 51 16 92 Room Air* 0 21 03/16/25 06:00 45 13 160/88 (112) 97 03/16/25 01:55 97.9 54 18 172/86 (114) 100 97.9 03/16/25 01:50 47 12 98 Room Air* 0 21 03/16/25 01:50 97.8 47 12 182/107 (132) 98 97.8 Lab Test 03/16/25 05:40 03/16/25 04:48 03/16/25 03:10 03/16/25 03:05 Range/Units Lactic Acid Level 2.1 *H 2.5 *H 0.4-2.0 mmol/L Troponin I High Sensitivity < 3 L < 3 L </=34 ng/L Lipase 55 H 12-53 U/L Thyroid Stimulating Hormone (TSH) 1.29 0.55-4.78 uIU/mL Urine Color Light-yellow Yellow Urine Clarity Clear Clear Urine pH 6.5 5.0-9.0 Urine Specific Mallory 1.009 1.001-1.035 Urine Protein Negative Negative Urine Ketones 1+ H Negative Urine Blood Negative Negative /uL Urine Nitrite Negative Negative Urine Bilirubin Negative Negative Urine Urobilinogen Normal Negative mg/dL Urine Leukocyte Esterase Negative Negative /uL Urine RBC 1 0 - 4 /hpf Urine Microscopic WBC < 1 0-5 /HPF Urine Squamous Epithelial Cells Few <5 /hpf Urine Bacteria None seen None Seen /hpf Urine Glucose 4+ H Normal mg/dL Urine Test Negative Negative Urine Opiates Screen Neg NEGATIVE Urine Fentanyl Screen Neg NEGATIVE Urine Barbiturates Screen Neg NEGATIVE Urine Phencyclidine Screen Neg NEGATIVE Urine Amphetamines Screen Neg NEGATIVE Urine Benzodiazepines Screen Neg NEGATIVE Urine Cocaine Screen Neg NEGATIVE Urine Cannabinoids Screen Pos NEGATIVE Beta-Hydroxybutyric Acid 0.907 H < 0.4 mmol/L Test 03/16/25 01:57 Range/Units White Blood Count 18.2 H 4.4-10.8 10^3/uL Red Blood Count 5.46 H 4.0-5.20 10^6/uL Hemoglobin 14.8 12.2-16.2 g/dL Hematocrit 43.8 36.0-46.0 % Mean Corpuscular Volume 80.4 80.0-100.0 fL Mean Corpuscular Hemoglobin 27.1 L 28.0-32.0 pg Mean Corpuscular Hemoglobin Concent 33.7 32.0-36.0 g/dL Red Cell Distribution Width 14.6 H 11.8-14.3 % Platelet Count 340 140-450 10^3/uL Mean Platelet Volume 9.4 6.9-10.8 fL Neutrophils (%) (Auto) 67.2 37.0-80.0 % Lymphocytes (%) (Auto) 24.9 10.0-50.0 % Monocytes (%) (Auto) 4.3 0.0-12.0 % Eosinophils (%) (Auto) 2.7 0.0-7.0 % Basophils (%) (Auto) 0.9 0.0-2.0 % Neutrophils # (Auto) 12.3 H 1.6-8.6 10 ^3/uL Lymphocytes # (Auto) 4.5 0.4-5.4 10 ^3/uL Monocytes # (Auto) 0.8 0-1.3 10 ^3/uL Eosinophils # (Auto) 0.5 0-0.8 10 ^3/uL Basophils # (Auto) 0.2 0-0.2 10 ^3/uL Nucleated Red Blood Cells 0.1 % Sodium Level 139 136-145 mmol/L Potassium Level 3.1 L 3.5-5.1 mmol/L Chloride Level 104 98-107 mmol/L Carbon Dioxide Level 22 20-31 mmol/L Anion Gap 13 5-15 Blood Urea Nitrogen 8 L 9-23 mg/dL Creatinine 0.82 0.550-1.02 mg/dL Glomerular Filtration Rate Calc 93 >90 mL/min BUN/Creatinine Ratio 9.8 L 10.0-20.0 Serum Glucose 238 H 74-106 mg/dL Hemoglobin A1c 6.3 H <5.7 % A1C Calcium Level 10.0 8.7-10.4 mg/dL Troponin I High Sensitivity < 3 L </=34 ng/L Microbiology Date/Time Source Procedure Growth Status 03/16/25 03:05 Blood Blood Culture - Preliminary NO GROWTH AFTER 72 HOURS OF INCUBATION. Resulted 03/16/25 03:02 Blood Blood Culture - Preliminary NO GROWTH AFTER 72 HOURS OF INCUBATION. Resulted [facility] [id number] [place] [id number] Ph: [phone] DIAGNOSTIC IMAGING Diagnostic Imaging Report : [id number] Signed PATIENT: MEJIA GARCIA ACCT: [id number] UNIT: [id number] : 1985 LOC: OVERFLOW ROOM / BED: 1029-ER / A AGE / SEX: 39 / F ADM STATUS: ADM IN SERVICE 1218 ORDERING PHYSICIAN: MAURA BAILEY RESIDENT PROCEDURE(s): ABPL - CT AB PEL WO CON-NO ORAL OR IV REASON: Severe epigastric pain ORDER NUMBER(s): [id number], ACCESSION NUMBER(s): [id number] CT CT AB PEL WO CON-NO ORAL OR IV INDICATION: Severe epigastric pain EXAM DATE: 03/16/2025 12:39 PM COMPARISON: CT CT AB PEL WO CON-NO ORAL OR IV on DOS: 05/05/24, CT CT AB PEL WO CON-NO ORAL OR IV on DOS: 11/29/23, CT CT AB PEL WO CON-NO ORAL OR IV on DOS: 10/25/23 RADIATION DOSE: CTDIvol: 6 mGy, DLP: 320 mGy*cm PROCEDURE: Helical CT images were obtained of the abdomen and pelvis without IV contrast Sagittal and coronal reconstructions are provided. ORAL CONTRAST: None. ADDITIONAL IMAGES / REFORMATS: None All CT scans at this medical facility are performed using dose modulation techniques as appropriate to a performed exam including the following: Automated exposure control was utilized; adjustment of the MA and/or KV according to patient size; and use of iterative reconstruction technique. FINDINGS: LUNG BASE: 3 mm left basilar pulmonary nodule. LIVER: Mild hepatic steatosis. GALLBLADDER AND BILIARY TREE: Tabby clips. No intra- or extrahepatic biliary ductal dilation. PANCREAS: Normal. SPLEEN: Normal. BOWEL: Mild colonic diverticulosis. Small hiatal hernia. Normal appendix. ADRENALS: Normal. KIDNEYS AND URETER: Normal. BLADDER: Normal. REPRODUCTIVE ORGANS: Absent uterus. LYMPH NODES:No lymphadenopathy. PERITONEUM: No ascites or free air. No other fluid collection. VESSELS: Normal. RETROPERITONEUM: Normal. ABDOMINAL WALL: Normal. BONES: Normal. IMPRESSION: No acute intraabdominal abnormality. Mild hepatic steatosis. ATED BY: RODNEY MERRITT MD DICTATED DATE/TIME: 03/16/251312 SIGNED BY: RODNEY MERRITT MD SIGNED DATE/TIME: 03/16/251312 CC: Time of 1ST Reevaluation: 02:05 Reevaluation 1ST: Unchanged Patient Education/Counseling: Diagnosis, Treatment Family Education/Counseling: No Family Present Comments Patient presented with the above HPI.---abdominal pain---workup was initiated. patient was found with the above mentioned diagnosis. the following medications were ordered: please refer to order lists of meds and tests obtained by myself Dr. Maza. Patient ED course and VS have been stabilized. Patient has been reassessed in the ED and remained in a stable condition. Pertinent incidental findings were discussed with the patient and/or family. Patient/family voices understanding and is agreeable with plan. Patient has been observed in the ED adequate length of time to insure improvemen t/stability. Escalation of care considered: Consideration of escalation to observation or admission Patient was ADMITTED to the medicine team for further evaluation and treatment of their presentation. All the reports of any imaging studies that were ordered by myself were reviewed by myself. SEPSIS Sepsis Screen Physician Orders Chest Portable (03/16/25 01:41) Electrocardigram (03/16/25 01:41) Electrocardigram (03/16/25 02:41) Electrocardigram (03/16/25 04:41) Blood Culture (03/16/25 02:53) Vital Signs Date Time Temp Pulse Resp B/P (MAP) Pulse Ox O2 Delivery O2 Flow Rate FiO2 03/16/25 12:00 50 12 140/85 (103) 95 03/16/25 10:00 65 14 147/93 (111) 100 03/16/25 08:00 97.9 51 16 169/99 (122) 92 97.9 03/16/25 08:00 51 16 92 Room Air* 0 21 03/16/25 06:00 45 13 160/88 (112) 97 03/16/25 01:55 97.9 54 18 172/86 (114) 100 97.9 03/16/25 01:50 47 12 98 Room Air* 0 21 03/16/25 01:50 97.8 47 12 182/107 (132) 98 97.8 Laboratory Tests Test 03/16/25 01:57 03/16/25 03:05 03/16/25 05:40 White Blood Count 18.2 10^3/uL (4.4-10.8) H Lactic Acid Level 2.5 mmol/L (0.4-2.0) *H 2.1 mmol/L (0.4-2.0) *H Departure 1 Departure Time of Disposition: 10:41 Impression: Primary Impression: Leukocytosis Additional Impressions: Abdominal pain Nausea and vomiting Sepsis Hypokalemia Disposition: ADMITTED INPATIENT Admit to: Tele Condition: Guarded Discharged With: Self Critical Care Note Critical Care Time?: Yes (45 min-critical care time only) Stability Stability form required: No Heart Score Heart Score: Heart Score Response (Comments) Value History N/A 0 EKG N/A 0 Age N/A 0 Risk Factors N/A 0 Troponin N/A 0 Total 0 I personally scribed for LAUREL PERALES MD ([email or web address]) on 03/16/25 at 01:46. Electronically submitted by Kristina Segundo ([email or web address]). LAUREL PERALES MD Mar 16, 2025 01:46 JOVANY MAZA DO Mar 16, 2025 10:44
[2025-03-16] MEDS: ONDANSETRON HCL 4 MG/2 ML VIAL IV ONE ×3 (02:08→10:57)
[2025-03-16] MEDS: FAMOTIDINE (10MG/ML) 2ML VL IV ONE (02:09)
[2025-03-16] MEDS: SODIUM CHLORIDE 0.9% 1,000 ML IV ONE ×3 (02:09→12:40)
[2025-03-16 02:27] LABS: Nucleated Red Blood Cells % 0.1 %
[2025-03-16 02:28] LABS: Hematocrit 43.8 % (36.0-46.0); Hemoglobin 14.8 g/dL (12.2-16.2); Mean Corpuscular Hemoglobin 27.1 pg (28.0-32.0); Mean Corpuscular Volume 80.4 fL (80.0-100.0)
[2025-03-16 02:35] LABS: Chloride 104 mmol/L (98-107); Sodium 139 mmol/L (136-145)
[2025-03-16 02:36] LABS: Anion Gap 13 (5-15); Calcium 10.0 mg/dL (8.7-10.4); Carbon Dioxide 22 mmol/L (20-31)
[2025-03-16 02:40] LABS: Potassium 3.1 mmol/L (3.5-5.1)
[2025-03-16 02:41] LABS: BUN/Creatinine Ratio 9.8 (10.0-20.0); Blood Urea Nitrogen 8 mg/dL (9-23); Glucose 238 mg/dL (74-106)
--- NOTE | 2025-03-16 02:57 | DVH ---
CHEST RADIOGRAPH Indication: cp Technique: Single frontal view of the chest was obtained Comparison: XY CHEST PORTABLE on DOS: 05/06/24, XY CHEST PORTABLE on DOS: 10/26/23 IMPRESSION: The heart appears stable in size. There is prominence of the aortic arch, potentially rotational, how ever the left mariella thorax appears increased in opacity as compared to the right. No sizable effusion or pneumothorax. CT of the chest is recommended.
[2025-03-16 03:55] LABS: Lactic Acid w/Reflex 2.5 mmol/L (0.4-2.0)
[2025-03-16 04:02] LABS: Urine Protein, UAD Negative (Negative)
[2025-03-16] MEDS: CEFEPIME 2GM/50ML NS 50 ML IV ONE (04:32)
[2025-03-16] MEDS: PANTOPRAZOLE 40 MG TAB PO ONE (06:26)
[2025-03-16] MEDS: SUCRALFATE 1 GM TAB PO ONE (06:26)
[2025-03-16] MEDS: LIDOCAINE VISCOUS 2% 15ML UD PO ONE (06:27)
[2025-03-16] MEDS: ONDANSETRON HCL 4 MG/2 ML VIAL ONE (06:34)
[2025-03-16] MEDS: HYDROcodone-ACET 5/325MG TAB PO ONE (10:45)
[2025-03-16 12:01] LABS: Amphetamine Screen, Urine Neg (NEGATIVE); Barbiturate Scree,Urine Neg (NEGATIVE); Benzodiazephine Screen, Urine Neg (NEGATIVE); Cannabinoid Screen, Urine Pos (NEGATIVE); Cocaine Screen, Urine Neg (NEGATIVE); Opiate Scree,Urine Neg (NEGATIVE); Phencyclidine Screen, Urine Neg (NEGATIVE)
[2025-03-16] MEDS ORDERED: ONDANSETRON HCL 4 MG/2 ML VIAL IV PRN (12:30)
--- NOTE | 2025-03-16 12:31 | DVHHPRES ---
History of Present Illness Resident Creating Document: MAURA BAILEY RESIDENT History of Present Illness This is a 39-year-old female with past medical history of celiac disease, diabetes, hypertension presented to the ED with chief complaints of nausea and vomiting since 3 days. She reported vomiting which was white in color with blood-stained. patient also reported having epigastric pain which has started day prior to admission which is squeezing in nature 8/10 intensity radiating to back which prompted her to visit ED. patient reported no aggravating or relieving factors. Constant on my assessment patient denies fever, chest pain, shortness of breath. patient also reports that she has been having occasional alternating constipation/ diarrhea due to underlying celiac disease home medication: Maalox, diphenhydramine, escitalopram, glipizide, lisinopril, metformin, ondansetron, simvastatin Cardiovascular: HTN GI: Other (celiac disease) Endocrine: Diabetes Past Surgical History: Cholecystectomy, Hysterectomy Family History: None Smoke: No ALCOHOL: rare Drugs: Marijuana (occasionally) Lives: with Family Review of Systems Review of Systems Review of systems: Constitutional: Denies weight loss, in severe distress HEENT: Denies changes in vision and hearing. Respiratory: Denies shortness of breath and cough Cardiovascular: Denies chest discomfort or palpitations GI: Nausea, vomiting, epigastric pain : Denies dysuria and urinary frequency. Musculoskeletal: Denies myalgias and joint pain Skin: Denies rash and pruritus. Neurological: Denies dizziness, vision or hearing problems. complains of headache. Allergies: Coded Allergies: Gluten Meal (Verified Allergy, Severe, 05/30/24) Promethazine (Verified Allergy, Severe, 10/25/23) Wheat (Verified Allergy, Severe, 05/30/24) Metoclopramide (Verified Allergy, Intermediate, jittery, 10/25/23) Sulfa Antibiotics (Verified Allergy, Mild, 10/25/23) Penicillins (Verified Allergy, Unknown, 10/25/23) Medications Current Medications Medications Dose Ordered Sig/Germania Route Start Time Stop Time Status Last Admin Dose Admin Potassium Chloride 100 ml @ 50 mls/hr Q2H IV 03/16/25 12:00 03/16/25 15:59 Pantoprazole Sodium 40 mg DAILY IV 03/17/25 10:00 UNV Exam Vital Signs Vital Signs Date Time Temp Pulse Resp B/P (MAP) Pulse Ox O2 Delivery O2 Flow Rate FiO2 03/16/25 06:00 45 13 160/88 (112) 97 03/16/25 01:55 97.9 97.9 03/16/25 01:50 Room Air* 0 21 Exam General: Patient alert and oriented in person, place and time. Patient following commands. In severe pain HEENT: Normocephalic, atraumatic, moist mucous membranes Respiratory/pulmonary: Clear lungs bilaterally, vesicular murmurs present in almost all lung bustamante, no associated crackles or wheezes. Cardiovascular: Normal heart sounds S1 and S2 with no associated murmurs Abdomen: Epigastric tenderness, and mid back pain Extremities: There is no peripheral edema present at the lower extremities. Peripheral Pulses: 3+ Radial (R). 3+ Radial (L). 3+ Dorsalis pedis (R). 3+ Dorsalis pedis(L) Skin: No rashes or pruritus, there is no sacral edema present at this time. Neurological: Intact cranial nerves with no focal neurologic deficits. Labs/Xrays Labs Test 03/16/25 05:40 03/16/25 04:48 03/16/25 03:10 03/16/25 01:57 Range/Units Lactic Acid Level 2.1 *H 0.4-2.0 mmol/L Troponin I High Sensitivity < 3 L </=34 ng/L Lipase 55 H 12-53 U/L Urine Color Light-yellow Yellow Urine Clarity Clear Clear Urine pH 6.5 5.0-9.0 Urine Specific Bagley 1.009 1.001-1.035 Urine Protein Negative Negative Urine Ketones 1+ H Negative Urine Blood Negative Negative /uL Urine Nitrite Negative Negative Urine Bilirubin Negative Negative Urine Urobilinogen Normal Negative mg/dL Urine Leukocyte Esterase Negative Negative /uL Urine RBC 1 0 - 4 /hpf Urine Microscopic WBC < 1 0-5 /HPF Urine Squamous Epithelial Cells Few <5 /hpf Urine Bacteria None seen None Seen /hpf Urine Glucose 4+ H Normal mg/dL Urine Test Negative Negative Urine Opiates Screen Neg NEGATIVE Urine Fentanyl Screen Neg NEGATIVE Urine Barbiturates Screen Neg NEGATIVE Urine Phencyclidine Screen Neg NEGATIVE Urine Amphetamines Screen Neg NEGATIVE Urine Benzodiazepines Screen Neg NEGATIVE Urine Cocaine Screen Neg NEGATIVE Urine Cannabinoids Screen Pos NEGATIVE White Blood Count 18.2 H 4.4-10.8 10^3/uL Red Blood Count 5.46 H 4.0-5.20 10^6/uL Hemoglobin 14.8 12.2-16.2 g/dL Hematocrit 43.8 36.0-46.0 % Mean Corpuscular Volume 80.4 80.0-100.0 fL Mean Corpuscular Hemoglobin 27.1 L 28.0-32.0 pg Mean Corpuscular Hemoglobin Concent 33.7 32.0-36.0 g/dL Red Cell Distribution Width 14.6 H 11.8-14.3 % Platelet Count 340 140-450 10^3/uL Mean Platelet Volume 9.4 6.9-10.8 fL Neutrophils (%) (Auto) 67.2 37.0-80.0 % Lymphocytes (%) (Auto) 24.9 10.0-50.0 % Monocytes (%) (Auto) 4.3 0.0-12.0 % Eosinophils (%) (Auto) 2.7 0.0-7.0 % Basophils (%) (Auto) 0.9 0.0-2.0 % Neutrophils # (Auto) 12.3 H 1.6-8.6 10 ^3/uL Lymphocytes # (Auto) 4.5 0.4-5.4 10 ^3/uL Monocytes # (Auto) 0.8 0-1.3 10 ^3/uL Eosinophils # (Auto) 0.5 0-0.8 10 ^3/uL Basophils # (Auto) 0.2 0-0.2 10 ^3/uL Nucleated Red Blood Cells 0.1 % Sodium Level 139 136-145 mmol/L Potassium Level 3.1 L 3.5-5.1 mmol/L Chloride Level 104 98-107 mmol/L Carbon Dioxide Level 22 20-31 mmol/L Anion Gap 13 5-15 Blood Urea Nitrogen 8 L 9-23 mg/dL Creatinine 0.82 0.550-1.02 mg/dL Glomerular Filtration Rate Calc 93 >90 mL/min BUN/Creatinine Ratio 9.8 L 10.0-20.0 Serum Glucose 238 H 74-106 mg/dL Calcium Level 10.0 8.7-10.4 mg/dL Assessment/Plan Assessment/Plan # Intractable abdominal pain rule out Gastroenteritis/ Pancreatitis Plan: Iv fluids 1000ml Morphine 1mg Protonix 40mg Haldol for Nausea CT abdominal case these show no acute abdominal moderately # hepatic steatosis evident on CT of the abdomen Outpatient follow up with GI # Left basilar pulmonary nodule.-incidental finding Ct abd/pel showed 3 mm left basilar pulmonary nodule. GI ppx: Protonix VTE ppx: Not needed Goals of care discussed with the patient for more than 27 minutes: Full code status plan disscused with patient and nurse. Case discussed with Dr Rodriguez Plan discussed with: Patient My Orders Orders - MAURA BAILEY RESIDENT Procedure Category Date Status Time Admit ADMIT 03/16/25 Transmitted 12:16 Sodium Chloride 0.9% PHA 03/16/25 Logged 12:30 Morphine Sulfate PHA 03/16/25 Logged Injection 12:30 Pantoprazole PHA 03/16/25 Logged (Protonix) 12:30 Pantoprazole PHA 03/17/25 Logged (Protonix) 10:00 Ct Ab Pel Wo Con-No CT 03/16/25 Logged Oral Or Iv 12:18 Stool Wbc LAB 03/16/25 Logged 12:18 Stool Bacterial YISSEL 03/16/25 Logged Culture 12:18 Thyroid Stimulating LAB 03/16/25 Logged Hormone 12:25 Comprehensive LAB 03/16/25 Transmitted Metabolic Panel 14:00 Beta-Hydroxybutyrate LAB 03/16/25 Transmitted 12:26 Ondansetron Hcl PHA 03/16/25 Transmitted (Zofran) 12:30 Date of Service: Mar 16, 2025 Billing Provider: JESSE RODRIGUEZ MD Common Visit Codes: [id number]-[id number] INP/OBS CARE (HIGH) MAURA BAILEY RESIDENT Mar 16, 2025 12:31 JESSE RODRIGUEZ MD Mar 17, 2025 12:32
[2025-03-16] MEDS: POTASSIUM CHL 20MEQ/100ML 100 ML IV SCH (12:38)
--- NOTE | 2025-03-16 13:16 | DVH ---
CT CT AB PEL WO CON-NO ORAL OR IV INDICATION: Severe epigastric pain EXAM DATE: 03/16/2025 12:39 PM COMPARISON: CT CT AB PEL WO CON-NO ORAL OR IV on DOS: 05/05/24, CT CT AB PEL WO CON-NO ORAL OR IV on D OS: 11/29/23, CT CT AB PEL WO CON-NO ORAL OR IV on DOS: 10/25/23 RADIATION DOSE: CTDIvol: 6 mGy, DLP: 320 mGy*cm PROCEDURE: Helical CT images were obtained of the abdomen and pelvis without IV contrast Sagittal and coronal reconstructions are provided. ORAL CONTRAST: None. ADDITIONAL IMAGES / REFORMATS: None All C T scans at this medical facility are performed using dose modulation techniques as appropriate to a p erformed exam including the following: Automated exposure control was utilized; adjustment of the MA and/or KV according to patient size; and use of iterative reconstruction technique. FINDINGS: LUNG BASE: 3 mm left basilar pulmonary nodule. LIVER: Mild hepatic steatosis. GALLBLADDER AND BILIARY TREE: Tabby clips. No intra- or extrahepatic biliary ductal dilation. PANCREAS: Normal. SPLEEN: Normal. BOWEL: Mild colonic diverticulosis. Small hiatal hernia. Normal appendix. ADRENALS: Normal. KIDNEYS AND URETER: Normal. BLADDER: Normal. REPRODUCTIVE ORGANS: Absent uterus. LYMPH NODES:No lymphadenopathy. PERITONEUM: No ascites or free air. No other fluid collection. VESSELS: Normal. RETROPERITONEUM: Normal. ABDOMINAL WALL: Normal. BONES: Normal. IMPRESSION: No acute intraabdominal abnormality. Mild hepatic steatosis.
[2025-03-16] MEDS: MORPHINE SULFATE INJ 2 MG/ml SYRG IV ONE (14:41)
[2025-03-16] MEDS ORDERED: DIPH-751 PO (14:42)
[2025-03-16] MEDS ORDERED: METF-372 PO (14:42)
[2025-03-16] MEDS ORDERED: ALUM1SUS PO (14:42)
[2025-03-16] MEDS ORDERED: GLIP5TAB21 PO (14:42)
[2025-03-16] MEDS ORDERED: ONDA-180 PO (14:42)
[2025-03-16] MEDS: PANTOPRAZOLE 40 MG/10 ML VIAL INJ IV ONE (14:44)
[2025-03-16 15:04] LABS: Alanine Aminotransferase 21 U/L (7-40); Alkaline Phosphatase 76 U/L (46-116); Anion Gap 14 (5-15); BUN/Creatinine Ratio 10.3 (10.0-20.0); Carbon Dioxide 21 mmol/L (20-31); Chloride 104 mmol/L (98-107); Potassium 3.9 mmol/L (3.5-5.1); Sodium 139 mmol/L (136-145); Total Protein 7.5 g/dL (5.7-8.2)
[2025-03-16 15:05] LABS: Albumin 5.4 g/dL (3.2-4.8); Bilirubin, Total 0.7 mg/dL (0.2-1.0); Blood Urea Nitrogen 7 mg/dL (9-23); Calcium 10.5 mg/dL (8.7-10.4); Glucose 177 mg/dL (74-106)
[2025-03-16] MEDS: LISINOPRIL 5 MG TAB PO ONE (18:35)
[2025-03-16] MEDS: SODIUM CHLORIDE 0.9% 1,000 ML IV SCH (19:15)
[2025-03-16] MEDS: HALOPERIDOL LACTATE 5 MG/ML INJ VIAL IM PRN (20:37)
[2025-03-17] VITALS (8 sets, daily range): BP systolic 99–137; BP diastolic 67–94; PULSE 53–71; RESP 16–18; TEMP 97.6–98.5; O2SAT 94–99
[2025-03-17] MEDS: MORPHINE SULFATE INJ 2 MG/ml SYRG IV PRN (01:17)
[2025-03-17] MEDS: ONDANSETRON HCL 4 MG/2 ML VIAL IV PRN ×2 (01:17→18:08)
[2025-03-17 06:01] LABS: Hematocrit 42.3 % (36.0-46.0); Hemoglobin 14.4 g/dL (12.2-16.2); Mean Corpuscular Hemoglobin 27.3 pg (28.0-32.0); Mean Corpuscular Volume 80.3 fL (80.0-100.0); Nucleated Red Blood Cells % 0.1 %
[2025-03-17 06:08] LABS: Chloride 105 mmol/L (98-107); Sodium 142 mmol/L (136-145)
[2025-03-17 06:09] LABS: Anion Gap 12 (5-15); Calcium 10.3 mg/dL (8.7-10.4); Carbon Dioxide 25 mmol/L (20-31)
[2025-03-17 06:14] LABS: BUN/Creatinine Ratio 12.5 (10.0-20.0); Blood Urea Nitrogen 10 mg/dL (9-23)
[2025-03-17 06:27] LABS: Glucose 132 mg/dL (74-106); Potassium 3.2 mmol/L (3.5-5.1)
[2025-03-17] MEDS ORDERED: POTASSIUM EFFERVESENT TAB 25 MEQ PO ONE (07:00)
[2025-03-17] MEDS: POTASSIUM CHL 20MEQ/100ML 100 ML IV SCH (08:04)
[2025-03-17] MEDS: LISINOPRIL 5 MG TAB PO SCH (09:46)
[2025-03-17] MEDS: PANTOPRAZOLE 40 MG/10 ML VIAL INJ IV SCH (09:46)
[2025-03-17] MEDS ORDERED: LISINOPRIL 5 MG TAB PO SCH (10:00)
[2025-03-17] MEDS: POLYETHYLENE GLYCOL 17 GM PWDR PO ONE (11:51)
--- NOTE | 2025-03-17 12:40 | DVHPNRES ---
Progress Note Date Seen: Mar 17, 2025 Resident Creating Document: MAURA BAILEY RESIDENT Has the PT tested + for MRSA If YES, has PT been informed?: No Medical Necessity Reason Pt with a Central, PICC or Fol: No Subjective Review of Systems This is a 39-year-old female with past medical history of celiac disease, diabetes, hypertension presented to the ED with chief complaints of nausea and vomiting since 3 days. She reported vomiting which was white in color with blood-stained. patient also reported having epigastric pain which has started day prior to admission which is squeezing in nature 8/10 intensity radiating to back which prompted her to visit ED. patient reported no aggravating or relieving factors. Constant on my assessment patient denies fever, chest pain, shortness of breath. patient also reports that she has been having occasional alternating constipation/ diarrhea due to underlying celiac disease. Patient seen at bedside. Patient reports having vomited multiple times during the night and once this morning. She is feeling uncomfortable but reports that her symptoms have improved since yesterday. Denies any fever, diarrhea but is having chills. She is able to tolerate small amounts of oral intake. Objective vital signs Vital Sign Date Time Temp Pulse Resp B/P (MAP) Pulse Ox O2 Delivery O2 Flow Rate FiO2 03/17/25 11:29 59 17 133/94 03/17/25 09:00 98.3 98 98.3 03/17/25 08:00 Room Air* 0 21 Total Intake and Output 03/16/25 03/16/25 03/17/25 15:00 23:00 07:00 Intake Total 1000 ml 600 ml Balance 1000 ml 600 ml medications Current Medications Medications Dose Ordered Sig/Germania Route Start Time Stop Time Status Last Admin Dose Admin Pantoprazole Sodium 40 mg DAILY IV 03/17/25 10:00 03/17/25 09:46 40 MG Haloperidol Lactate 2.5 mg Q8HP PRN IM 03/16/25 13:30 03/17/25 08:04 2.5 MG Morphine Sulfate 1 mg Q6HP PRN IV 03/16/25 17:30 03/17/25 09:47 1 MG Sodium Chloride 1,000 ml @ 75 mls/hr [id number] IV 03/16/25 19:15 03/17/25 08:04 75 MLS/HR Lisinopril 10 mg DAILY PO 03/17/25 08:45 03/17/25 09:46 10 MG Ergocalciferol 50,000 unit Q7D PO 03/17/25 14:00 Examination General: Patient alert and oriented in person, place and time. Patient following commands. In mild distress HEENT: Normocephalic, atraumatic, moist mucous membranes Respiratory/pulmonary: Clear lungs bilaterally, vesicular murmurs present in almost all lung bustamante, no associated crackles or wheezes. Cardiovascular: Normal heart sounds S1 and S2 with no associated murmurs Abdomen: Abdomen nondistended, soft, tenderness in epigastric region. Extremities: There is no peripheral edema present at the lower extremities. Peripheral Pulses: 3+ Radial (R). 3+ Radial (L). 3+ Dorsalis pedis (R). 3+ Dorsalis pedis(L) Skin: No rashes or pruritus, there is no sacral edema present at this time. Neurological: Intact cranial nerves with no focal neurologic deficits laboratory and microbiology Laboratory Tests 03/17/25 04:32 Test 03/17/25 04:32 Range/Units Serum Glucose 132 H 74-106 mg/dL Microbiology Date/Time Source Procedure Growth Status 03/16/25 03:05 Blood Blood Culture - Preliminary NO GROWTH AFTER 24 HOURS OF INCUBATION. Resulted Problem List/Assessment/Plan Problem List/Assessment/Plan # Intractable abdominal pain rule out Gastroenteritis/ Pancreatitis Plan: Iv fluids 1000ml Morphine 1mg Protonix 40mg Haldol for Nausea - Discontinued Ondonsetron 4mg q4 prn Vtamin D given CT abdomin shows no acute abdominal abnormality # hepatic steatosis evident on CT of the abdomen Outpatient follow up with GI # Left basilar pulmonary nodule.-incidental finding Ct abd/pel showed 3 mm left basilar pulmonary nodule. GI ppx: Protonix VTE ppx: Not needed Goals of care discussed with the patient for more than 13 minutes: Full code status plan disscused with patient and nurse. Case discussed with Dr Rodriguez Plan discussed with: Patient Date of Service: Mar 17, 2025 Billing Provider: JESSE RODRIGUEZ MD Common Visit Codes: [id number] INP/OBS CARE(HIGH) MAURA BAILEY RESIDENT Mar 17, 2025 12:40 JESSE RODRIGUEZ MD Mar 18, 2025 16:53
[2025-03-17] MEDS: ERGOCALCIFEROL 50,000 UNIT(1.25MG) CAP PO SCH (15:04)
[2025-03-17] MEDS: HYDROcodone-ACET 5/325MG TAB PO PRN (23:11)
[2025-03-18 01:00] VITALS: BP 99/65; PULSE 60; RESP 18; TEMP 97.5; O2SAT 97
[2025-03-18] MEDS: MORPHINE SULFATE INJ 2 MG/ml SYRG IV PRN (03:17)
[2025-03-18 05:00] VITALS: BP 124/69; PULSE 58; RESP 18; TEMP 97.5; O2SAT 99
[2025-03-18 07:30] LABS: Anion Gap 11 (5-15); Carbon Dioxide 23 mmol/L (20-31); Potassium 3.8 mmol/L (3.5-5.1); Sodium 142 mmol/L (136-145)
[2025-03-18 07:31] LABS: Calcium 9.5 mg/dL (8.7-10.4)
[2025-03-18 07:33] LABS: Hematocrit 36.6 % (36.0-46.0); Hemoglobin 12.4 g/dL (12.2-16.2); Mean Corpuscular Hemoglobin 27.5 pg (28.0-32.0); Mean Corpuscular Volume 81.3 fL (80.0-100.0); Nucleated Red Blood Cells % 0.0 %
[2025-03-18 07:36] LABS: BUN/Creatinine Ratio 15.4 (10.0-20.0); Blood Urea Nitrogen 12 mg/dL (9-23); Chloride 108 mmol/L (98-107); Glucose 119 mg/dL (74-106)
[2025-03-18 08:00] VITALS: PULSE 81; RESP 18; O2SAT 100
[2025-03-18 09:00] VITALS: BP 141/104; PULSE 63; RESP 19; TEMP 97.4; O2SAT 97
[2025-03-18] MEDS: ONDANSETRON HCL 4 MG/2 ML VIAL IV PRN (10:57)
[2025-03-18 13:00] VITALS: BP 135/90; PULSE 61; RESP 18; TEMP 98.3; O2SAT 100
--- NOTE | 2025-03-18 13:35 | DVHPNRES ---
Progress Note Date Seen: Mar 18, 2025 Resident Creating Document: NEGRITA CRUZ RESIDENT Has the PT tested + for MRSA If YES, has PT been informed?: No Medical Necessity Reason Pt with a Central, PICC or Fol: No Subjective Review of Systems Patient is a 39-year-old female with past medical history of celiac disease, t ype 2 diabetes, hyperlipidemia, and hypertension presented to the via ambulance ED with chief complaint of nausea, vomiting, and general weakness. She states that nausea and vomiting began 3 days prior and day she developed epigastric pain described as squeezing in nature radiating to her back, rated an 8/10 in intensity, with no aggravating or relieving factors. She denied fever, chest pain, and shortness of breath. Patient seen at bedside. Patient is alert, states she feels better, slept well, has a bowel movement, and not had anymore episodes of abdominal pain, nausea, or vomiting. States she was able to tolerate liquid diet with no difficulty. Diet advanced to soft diet. Currently waiting for results of stool sample studies. Review of systems: Constitutional: Denies weight loss, fever and chills. HEENT: Denies changes in vision and hearing. Respiratory: Denies shortness of breath and cough Cardiovascular: Denies chest discomfort or palpitations GI: Denies abdominal distention, abdominal pain, diarrhea : Denies dysuria and urinary frequency. Musculoskeletal: Denies myalgias and joint pain Skin: Denies rash and pruritus. Neurological: denies dizziness headache vision or hearing problems Objective vital signs Vital Sign Date Time Temp Pulse Resp B/P (MAP) Pulse Ox O2 Delivery O2 Flow Rate FiO2 03/18/25 09:05 141/104 03/18/25 09:00 97.4 63 19 97 97.4 03/18/25 08:00 Room Air* 0 21 Total Intake and Output 03/17/25 03/17/25 03/18/25 15:00 23:00 07:00 Intake Total 218 ml 525 ml 520 ml Balance 218 ml 525 ml 520 ml medications Current Medications Medications Dose Ordered Sig/Germania Route Start Time Stop Time Status Last Admin Dose Admin Pantoprazole Sodium 40 mg DAILY IV 03/17/25 10:00 03/18/25 09:08 40 MG Sodium Chloride 1,000 ml @ 75 mls/hr [id number] IV 03/16/25 19:15 03/18/25 09:08 75 MLS/HR Lisinopril 10 mg DAILY PO 03/17/25 08:45 03/18/25 09:05 10 MG Ergocalciferol 50,000 unit Q7D PO 03/17/25 14:00 03/17/25 15:04 50,000 UNIT Acetaminophen/ Hydrocodone Bitart 1 tab Q6HPRN PRN PO 03/17/25 23:15 03/18/25 11:59 1 TAB Morphine Sulfate 1 mg Q6HP PRN IV 03/17/25 23:15 03/18/25 03:17 1 MG Ondansetron HCl 4 mg Q4HPRN PRN IV 03/18/25 10:30 03/18/25 10:57 4 MG Examination General: The patient alert and oriented in person place and time. Patient following commands HEENT: Normocephalic, atraumatic, moist mucous membrane Respiratory/pulmonary: Clear lungs bilaterally, vesicular murmurs present in almost all lung bustamante, no associated crackles or wheezes. Abdomen: Abdomen nondistended, there is no pain to palpation in any of the abdominal quadrants, no palpable masses. Extremities: there is no peripheral edema present at the lower extremities. Peripheral pulses 3+ radial right, 3+ radials soft. 3+ dorsalis pedis right. 3+ dorsalis pedis left Skin: No rashes or pruritus. Neurological: Intact cranial nerves with no focal neurologic deficits laboratory and microbiology Laboratory Tests 03/18/25 05:41 Test 03/18/25 05:41 Range/Units Serum Glucose 119 H 74-106 mg/dL Microbiology Date/Time Source Procedure Growth Status 03/16/25 03:05 Blood Blood Culture - Preliminary NO GROWTH AFTER 48 HOURS OF INCUBATION. Resulted Problem List/Assessment/Plan Problem List/Assessment/Plan Intractable abdominal pain, rule out Gastroenteritis/ Pancreatitis -IV fluids 1000ml -Morphine IV 1 mg PRN -Steger PO 1 table q6hr PRN -Protonix IV 40mg daily -Haldol, discontinued -Zofran IV 4 mg q4 PRN -[place] [address] U Q7D -CT Abdomen/pelvis: case these show no acute abdominal moderately -Advance to a soft diet Hepatic steatosis -Evident on CT abdomen/pelvis -Outpatient follow up with GI Left basilar pulmonary nodule.-incidental finding -Ct abd/pel showed 3 mm left basilar pulmonary nodule. Hypertension -Continue home medications Type 2 diabetes Hyperlipidemia -Continue home medications GI ppx: Protonix VTE ppx: Not needed NEGRITA CRUZ RESIDENT Mar 18, 2025 13:35
[2025-03-18 17:00] VITALS: BP 141/93; PULSE 52; RESP 19; TEMP 97.5; O2SAT 99
--- NOTE | 2025-03-18 17:40 | DVHDSRES ---
Discharge Summary Date of Admission Resident Creating Document: NEGRITA CRUZ RESIDENT Mar 16, 2025 at 12:16 Date of Discharge: Mar 18, 2025 Admitting Diagnosis Intractable abdominal pain Labs/Diagnostic Data: Laboratory Results Test 03/18/25 08:55 03/18/25 05:41 03/17/25 04:32 03/16/25 16:51 Stool for White Cells None seen White Blood Count 8.1 10^3/uL (4.4-10.8) Red Blood Count 4.51 10^6/uL (4.0-5.20) Hemoglobin 12.4 g/dL (12.2-16.2) Hematocrit 36.6 % (36.0-46.0) Mean Corpuscular Volume 81.3 fL (80.0-100.0) Mean Corpuscular Hemoglobin 27.5 pg (28.0-32.0) Mean Corpuscular Hemoglobin Concent 33.8 g/dL (32.0-36.0) Red Cell Distribution Width 14.4 % (11.8-14.3) Platelet Count 245 10^3/uL (140-450) Mean Platelet Volume 9.6 fL (6.9-10.8) Neutrophils (%) (Auto) 49.7 % (37.0-80.0) Lymphocytes (%) (Auto) 41.4 % (10.0-50.0) Monocytes (%) (Auto) 5.9 % (0.0-12.0) Eosinophils (%) (Auto) 1.9 % (0.0-7.0) Basophils (%) (Auto) 1.1 % (0.0-2.0) Neutrophils # (Auto) 4.0 10 ^3/uL (1.6-8.6) Lymphocytes # (Auto) 3.4 10 ^3/uL (0.4-5.4) Monocytes # (Auto) 0.5 10 ^3/uL (0-1.3) Eosinophils # (Auto) 0.2 10 ^3/uL (0-0.8) Basophils # (Auto) 0.1 10 ^3/uL (0-0.2) Nucleated Red Blood Cells 0.0 % Sodium Level 142 mmol/L (136-145) Potassium Level 3.8 mmol/L (3.5-5.1) Chloride Level 108 mmol/L (98-107) Carbon Dioxide Level 23 mmol/L (20-31) Anion Gap 11 (5-15) Blood Urea Nitrogen 12 mg/dL (9-23) Creatinine 0.78 mg/dL (0.550-1.02) Glomerular Filtration Rate Calc 99 mL/min (>90) BUN/Creatinine Ratio 15.4 (10.0-20.0) Serum Glucose 119 mg/dL (74-106) Calcium Level 9.5 mg/dL (8.7-10.4) Magnesium Level 1.9 mg/dL (1.6-2.6) Vitamin D 25-Hydroxy 15.9 ng/mL (30.0-100) POC Glucose 138 mg/dl (70-106) Test 03/16/25 14:22 03/16/25 05:40 03/16/25 04:48 03/16/25 03:10 Total Bilirubin 0.7 mg/dL (0.2-1.0) Aspartate Amino Transferase (AST) 23 U/L (13-40) Alanine Aminotransferase (ALT) 21 U/L (7-40) Alkaline Phosphatase 76 U/L (46-116) C-Reactive Protein High Sensitivity 0.69 mg/dL (<1.0) Total Protein 7.5 g/dL (5.7-8.2) Albumin 5.4 g/dL (3.2-4.8) Lactic Acid Level 2.1 mmol/L (0.4-2.0) Troponin I High Sensitivity < 3 ng/L (</=34) Lipase 55 U/L (12-53) Thyroid Stimulating Hormone (TSH) 1.29 uIU/mL (0.55-4.78) Urine Color Light-yellow (Yellow) Urine Clarity Clear (Clear) Urine pH 6.5 (5.0-9.0) Urine Specific [place] 1.009 (1.001-1.035) Urine Protein Negative (Negative) Urine Ketones 1+ (Negative) Urine Blood Negative /uL (Negative) Urine Nitrite Negative (Negative) Urine Bilirubin Negative (Negative) Urine Urobilinogen Normal mg/dL (Negative) Urine Leukocyte Esterase Negative /uL (Negative) Urine RBC 1 /hpf (0 - 4) Urine Microscopic WBC < 1 /HPF (0-5) Urine Squamous Epithelial Cells Few /hpf (<5) Urine Bacteria None seen /hpf (None Seen) Urine Glucose 4+ mg/dL (Normal) Urine Test Negative (Negative) Urine Opiates Screen Neg (NEGATIVE) Urine Fentanyl Screen Neg (NEGATIVE) Urine Barbiturates Screen Neg (NEGATIVE) Urine Phencyclidine Screen Neg (NEGATIVE) Urine Amphetamines Screen Neg (NEGATIVE) Urine Benzodiazepines Screen Neg (NEGATIVE) Urine Cocaine Screen Neg (NEGATIVE) Urine Cannabinoids Screen Pos (NEGATIVE) Test 03/16/25 03:05 03/16/25 01:57 Beta-Hydroxybutyric Acid 0.907 mmol/L (< 0.4) Hemoglobin A1c 6.3 % A1C (<5.7) Other Laboratory Tests 03/18/25 05:41 Brief Hx & Hospital Course: Patient is a 39-year-old female with past medical history of celiac disease, t ype 2 diabetes, hyperlipidemia, and hypertension who presented to the ED via ambulance with chief complaint of nausea, vomiting, and general weakness. She states that the nausea and vomiting began 3 days prior and day she developed epigastric pain described as squeezing in nature radiating to her back, rated an 8/10 in intensity, with no aggravating or relieving factors. She denied fever, chest pain, and shortness of breath. On evaluation, she was in distress, hypertensive, vomiting, and with abdominal pain to palpation of the epigastrium and mid back. Sepsis protocol was initiated, IV fluids were given, blood cultures were taken, worries were administered, and chest x-ray was taken. Labs were significant for WBCs of 18.2 and potassium of 3.1, lactate 2.5 and 2.1, lipase 55. She was admitted for further workup. Abdominal CT showed no acute intra-abdominal abnormality and mild hepatic steatosis. On admission, patient was given IV fluids, potassium repletion, GI prophylaxis, and antibiotics were discontinued. On evaluation the following morning, patient was found to still have nausea, vomiting, and abdominal discomfort, but she was able to tolerate some liquid. With ith antinausea medication, liquid diet, and pain medication was continued. On evaluation today, the patient stated she felt better, denied episodes of nausea, vomiting, and abdominal pain, and tolerating soft diet. Blood cultures were negative at 48 hours of growth and stool sample showed no signs of WBC. Patient was considered stable to discharge home with instructions to follow up with PCP in 1-2 weeks and with GI in 1-2 weeks. Operations or Procedures CHEST RADIOGRAPH Indication: cp Technique: Single frontal view of the chest was obtained Comparison: XY CHEST PORTABLE on DOS: 05/06/24, XY CHEST PORTABLE on DOS: 10/26/23 IMPRESSION: The heart appears stable in size. There is prominence of the aortic arch, potentially rotational, however the left mariella thorax appears increased in opacity as compared to the right. No sizable effusion or pneumothorax. CT of the chest is recommended. CT CT AB PEL WO CON-NO ORAL OR IV INDICATION: Severe epigastric pain EXAM DATE: 03/16/2025 12:39 PM COMPARISON: CT CT AB PEL WO CON-NO ORAL OR IV on DOS: 05/05/24, CT CT AB PEL WO CON-NO ORAL OR IV on DOS: 11/29/23, CT CT AB PEL WO CON-NO ORAL OR IV on DOS: 10/25/23 RADIATION DOSE: CTDIvol: 6 mGy, DLP: 320 mGy*cm PROCEDURE: Helical CT images were obtained of the abdomen and pelvis without IV contrast Sagittal and coronal reconstructions are provided. ORAL CONTRAST: None. ADDITIONAL IMAGES / REFORMATS: None All CT scans at this medical facility are performed using dose modulation techniques as appropriate to a performed exam including the following: Automated exposure control was utilized; adjustment of the MA and/or KV according to patient size; and use of iterative reconstruction technique. FINDINGS: LUNG BASE: 3 mm left basilar pulmonary nodule. LIVER: Mild hepatic steatosis. GALLBLADDER AND BILIARY TREE: Tabby clips. No intra- or extrahepatic biliary ductal dilation. PANCREAS: Normal. SPLEEN: Normal. BOWEL: Mild colonic diverticulosis. Small hiatal hernia. Normal appendix. ADRENALS: Normal. KIDNEYS AND URETER: Normal. BLADDER: Normal. REPRODUCTIVE ORGANS: Absent uterus. LYMPH NODES:No lymphadenopathy. PERITONEUM: No ascites or free air. No other fluid collection. VESSELS: Normal. RETROPERITONEUM: Normal. ABDOMINAL WALL: Normal. BONES: Normal. IMPRESSION: No acute intraabdominal abnormality. Mild hepatic steatosis. Condition at Discharge: Stable Final Diagnosis/Problems List Abdominal pain, likely due to Viral Gastroenteritis Ruled out Pancreatitis Hepatic steatosis Left basilar pulmonary nodule.-incidental finding Hypertension Type 2 diabetes Hyperlipidemia Discharge Disposition: Home Discharge Instruct/Medications Diet: Regular Activity: No Restrictions, As Tolerated Follow Up/Referral: Follow up with PCP in 1-2 weeks Follow up with GI in 1-2 weeks Scheduled Alum & Mag Hydrox-Simethicone (Antacid Regular Strength), 30 ML PO QID, (Reported) Escitalopram Oxalate (Escitalopram Oxalate), 1 TAB PO DAILY, (Reported) Glipizide (Glipizide), 1 TAB PO QAM, (Reported) Lisinopril (Lisinopril), 1 TAB PO DAILY, (Reported) Metformin Hydrochloride (Metformin Hcl), 1 TAB PO BID, (Reported) Ondansetron HCl (Ondansetron Hydrochloride), 1 TAB PO DAILYPRN, (Reported) Scheduled PRN Diphenhydramine Hcl (Banophen), 1 CAP PO QHSP PRN for ANXIETY, (Reported) Miscellaneous Medications Simvastatin (Simvastatin), 1 TAB PO, (Reported) Discharge Statement: "Patient was advised to return to the ER or call 911 if any headaches, dizziness, shortness of breath, chest pain, abdominal pain, bleeding, fevers, or worsening of medical condition. Patient was counseled about treatment plan, medications, possible side effects, patientverbalized understanding. All questions were answered to the best of my ability. This discharge took greater then 30 minutes in planning, reviewing documentation, counseling the patient, and discussing with other team members." ASSESSMENT ASSESSMENT Assessment Abdominal pain, due to viral gastroenteritis Date of Service: Mar 18, 2025 Billing Provider: JESSE RODRIGUEZ MD Common Visit Codes: 91915-ZVH/OBS DISCH DAY >30min NEGRITA CRUZ RESIDENT Mar 18, 2025 17:40 JESSE RODRIGUEZ MD Mar 19, 2025 21:13
== END 2025-03-18 19:10 | disposition home or self-care (01) | DRG 249 ==
LOC: EDBD 01:36 → ER 01:36 → OVERFLOW 12:16 → WEST WING 18:06
PROVIDERS: ATTEND Emergency Medicine
DX: A08.4 Viral intestinal infection, unspecified (principal); K76.0 Fatty (change of) liver, not elsewhere classified; E11.9 Type 2 diabetes mellitus without complications; I10 Essential (primary) hypertension; E87.6 Hypokalemia; K21.9 Gastro-esophageal reflux disease without esophagitis; E78.5 Hyperlipidemia, unspecified; R91.1 Solitary pulmonary nodule; Z90.710 Acquired absence of both cervix and uterus; Z90.49 Acquired absence of other specified parts of digestive tract; Z88.0 Allergy status to penicillin; Z88.5 Allergy status to narcotic agent; Z91.018 Allergy to other foods; Z83.3 Family history of diabetes mellitus
CPT/HCPCS: 36415; 71045; 74176; 80048; 80053; 80307; 81001; 81025; 82010; 82306; 82962; 83036; 83605; 83690; 83735; 84443; 84484; 85025; 85048; 86141; 87040; G0378; J0692; J2405; J2470; J3480; J3490

== ENCOUNTER 2025-07-29 19:59 | Inpatient (IN) | payer MEDICAID ==
[~2025-07-29] VITALS: Ht 152.4 cm; Wt 63.1 kg
[~2025-07-29 19:59] MED LIST changes: +ALUM1SUS PO; +DICY20TA PO; +DIPH-751 PO; -DOCU-94 PO; +FLUC200T PO; +GLIP5TAB21 PO; -HYDR-3682 PO; -LISI10TA34 PO; -METF-371 PO; +METF-372 PO; -METF-929 PO; -METR-344 PO; +ONDA-180 PO; -PANT40TA2 PO; +PANT40TA57 PO; -ROSU5TAB5 PO; +SUCR1SUS26 PO; -SUCR1TAB31 PO; -ZOFR4T PO
[2025-07-29] MEDS: DONNATAL 5ml ORAL Elix (BELLADONNA ALK-PHENOBARB) PO ONE (21:30)
[2025-07-29] MEDS: LIDOCAINE VISCOUS 2% 15ML UD PO ONE (22:34)
[2025-07-29] MEDS: MAALOX PLUS or MAALOX 30 ML PO ONE (22:34)
[2025-07-29] MEDS: PANTOPRAZOLE 40 MG/10 ML VIAL INJ IV ONE (23:21)
[2025-07-29] MEDS: METOCLOPRAMIDE HCL 5MG/ml INJ 2ml VIAL IV ONE (23:21)
[2025-07-29 23:47] LABS: Hematocrit 43.4 % (36.0-46.0); Hemoglobin 14.7 g/dL (12.2-16.2)
[2025-07-29 23:50] LABS: Mean Corpuscular Hemoglobin 26.5 pg (28.0-32.0); Mean Corpuscular Volume 78.4 fL (80.0-100.0); Nucleated Red Blood Cells % 0.1 %
[2025-07-30] VITALS (8 sets, daily range): BP systolic 115–195; BP diastolic 55–110; PULSE 59–88; RESP 18–21; TEMP 98.2–99.2; O2SAT 95–99
[2025-07-30 00:02] LABS: Alanine Aminotransferase 21 U/L (7-40); Alkaline Phosphatase 87 U/L (46-116); Anion Gap 19 (5-15); BUN/Creatinine Ratio 11.0 (10.0-20.0); Blood Urea Nitrogen 9 mg/dL (9-23); Chloride 105 mmol/L (98-107); Potassium 3.5 mmol/L (3.5-5.1); Sodium 144 mmol/L (136-145)
[2025-07-30 00:03] LABS: Bilirubin, Total 0.5 mg/dL (0.2-1.0)
[2025-07-30 00:18] LABS: Albumin 5.5 g/dL (3.2-4.8); Calcium 10.7 mg/dL (8.7-10.4); Carbon Dioxide 20 mmol/L (20-31); Glucose 242 mg/dL (74-106); Total Protein 8.5 g/dL (5.7-8.2)
[2025-07-30] MEDS: MORPHINE SULFATE INJ 2 MG/ml SYRG IV ONE (00:33)
[2025-07-30] MEDS: SODIUM CHLORIDE 0.9% 2,000 ML IV ONE (01:15)
--- NOTE | 2025-07-30 01:20 | ED.PDOC ---
GI ASSESSMENT HPI Comments 39-YEAR-OLD DIABETIC FEMALE PBROUGHT TO THE ER BY EMS WITH CC OF ABDOMINAL PAIN, PT STATES THAT SHE ATE HOT CHEETOES EVEN THOUGH SHE KNOWS SHE IS NOT SUPPOSED TO AND HAS BEEN THROWING UP SINCE. DENIES FEVER, CHILLS, CHEST PAIN, SHORTNESS BREATH OR DIFFICULTY BREATHING. Chief Complaint: Abdominal Pain Time Seen by MD: 21:10 Reviewed Notes: Nurses Notes, Medications, Allergies Allergies: Coded Allergies: Penicillins (Verified Allergy, Unknown, 04/14/25) Sulfa Antibiotics (Verified Allergy, Unknown, 04/14/25) Home Meds Active Scripts Fluconazole (Diflucan) 200 Mg Tab, 1 TAB PO DAILY, #7 TAB Prov:MARIOLA BLUM MD 04/20/25 Nystatin (Mouth-Throat) (Mycostatin (Mouth-Throat)) 500,000 Units/5 Ml Ss, 5 ML MT QID for 30 Days, #600 ML Prov:MARIOLA BLUM MD 04/20/25 Sucralfate (CARAFATE SUSP) 1 Gm/10 Ml Ss, 10 ML PO QID, #1200 ML 3 Refills Prov:MARIOLA BLUM MD 04/20/25 Pantoprazole Sodium Sesquihydr (Pantoprazole Sodium Dr) 40 Mg Tab, 40 MG PO DAILY, #30 TAB Prov:MARIOLA BLUM MD 04/20/25 Reported Medications Lisinopril (Lisinopril) 5 Mg Tab, 1 TAB PO DAILY for 90 Days, #90 04/17/25 Metformin Hydrochloride (Metformin Hcl) 1,000 Mg Tab, 1 TAB PO BID for 90 Days, #180 04/17/25 Glipizide (Glipizide) 5 Mg Tab, 1 TAB PO DAILY for 30 Days, #30 04/17/25 Diphenhydramine Hcl (Banophen) 25 Mg Cap, 1 CAP PO QHSP for 30 Days, #30 04/17/25 Simvastatin (Simvastatin) 5 Mg Tab, 1 TAB PO QPM for 30 Days, #30 04/17/25 Escitalopram Oxalate (ESCITALOPRAM OXALATE) 10 Mg Tab, 1 TAB PO DAILY for 30 Days, #30 04/17/25 Dicyclomine Hcl (Dicyclomine Hcl) 20 Mg Tab, 1 TAB PO TID PRN for UNSPECIFIED ABDOMINAL PAIN for 30 Days, #90 04/17/25 Information Source: Patient, Spouse Mode of Arrival: EMS Past Medical History PAST MEDICAL HISTORY: DM Family History Family History: Unknown Social History Smoker: Non-Smoker Alcohol: Denies ETOH Use Drugs: Denies Drug Use All Other Systems: Reviewed and Negative (SEE HPI) Physical Exam General Appearance: No Apparent Distress, Normal HEENT: Normal ENT Inspection, Pharynx Normal, TMs Normal Neck: Full Range of Motion, Non-Tender Respiratory: Lungs Clear, No Respiratory Distress, Normal Breath Sounds Cardiovascular: No Edema, No JVD, No Murmur, No Gallop, Normal Peripheral Pulses, Regular Rate/Rhythm Breast Exam: Deferred Gastrointestinal: Diffuse (DIFFUSE TENDERNESS), Distended, Guarding, No Organomegaly, Soft Genitalia: Deferred Pelvic: Deferred Rectal: Deferred Extremities: Normal capillary refill, Normal range of motion, No pedal edema Musculoskeletal : Apperance: Normal Neurologic: Alert, No Motor Deficits, Normal Affect, Normal Mood, No Sensory Deficits Cerebellar Function: Normal Reflexes: NOT DONE Skin: Dry, Normal Color, Warm Lymphatic: No Adenopathy Was a procedure done? Was a procedure done?: No GI differential Dx Differential Diagnosis: Bowel Obstruction, Cholangitis, Cholecystitis, Constipation, Gastritis/PUD, Gastroenteritis, Diabetes/ DKA X-Ray, Labs, Meds, VS Vital Signs Date Time Temp Pulse Resp B/P (MAP) Pulse Ox O2 Delivery O2 Flow Rate FiO2 07/30/25 00:33 83 22 162/100 07/29/25 20:39 98.7 69 20 151/97 99 98.7 Lab Test 07/29/25 23:20 07/29/25 23:05 Range/Units Beta-Hydroxybutyric Acid 0.340 < 0.4 mmol/L White Blood Count 13.6 H 4.4-10.8 10^3/uL Red Blood Count 5.54 H 4.0-5.20 10^6/uL Hemoglobin 14.7 12.2-16.2 g/dL Hematocrit 43.4 36.0-46.0 % Mean Corpuscular Volume 78.4 L 80.0-100.0 fL Mean Corpuscular Hemoglobin 26.5 L 28.0-32.0 pg Mean Corpuscular Hemoglobin Concent 33.8 32.0-36.0 g/dL Red Cell Distribution Width 15.3 H 11.8-14.3 % Platelet Count 353 140-450 10^3/uL Mean Platelet Volume 9.9 6.9-10.8 fL Neutrophils (%) (Auto) 86.6 H 37.0-80.0 % Lymphocytes (%) (Auto) 8.5 L 10.0-50.0 % Monocytes (%) (Auto) 4.4 0.0-12.0 % Eosinophils (%) (Auto) 0.0 0.0-7.0 % Basophils (%) (Auto) 0.5 0.0-2.0 % Neutrophils # (Auto) 11.7 H 1.6-8.6 10 ^3/uL Lymphocytes # (Auto) 1.1 0.4-5.4 10 ^3/uL Monocytes # (Auto) 0.6 0-1.3 10 ^3/uL Eosinophils # (Auto) 0 0-0.8 10 ^3/uL Basophils # (Auto) 0.1 0-0.2 10 ^3/uL Nucleated Red Blood Cells 0.1 % Sodium Level 144 136-145 mmol/L Potassium Level 3.5 3.5-5.1 mmol/L Chloride Level 105 98-107 mmol/L Carbon Dioxide Level 20 20-31 mmol/L Anion Gap 19 H 5-15 Blood Urea Nitrogen 9 9-23 mg/dL Creatinine 0.82 0.550-1.02 mg/dL Glomerular Filtration Rate Calc 93 >90 mL/min BUN/Creatinine Ratio 11.0 10.0-20.0 Serum Glucose 242 H 74-106 mg/dL Serum Osmolality 305 H 278-298 mOsm/kg Calcium Level 10.7 H 8.7-10.4 mg/dL Total Bilirubin 0.5 0.2-1.0 mg/dL Aspartate Amino Transferase (AST) 20 13-40 U/L Alanine Aminotransferase (ALT) 21 7-40 U/L Alkaline Phosphatase 87 46-116 U/L Troponin I High Sensitivity < 3 L </=34 ng/L Total Protein 8.5 H 5.7-8.2 g/dL Albumin 5.5 H 3.2-4.8 g/dL Lipase 36 12-53 U/L Current Medications Medications (Trade) Dose Ordered Sig/Germania Route Start Time Stop Time Status Last Admin Al Hydrox/Mg Hydrox/Simethicone (Maalox Plus) 30 ml ONCE ONCE PO 07/29/25 21:30 07/29/25 21:31 DC 07/29/25 22:34 Lidocaine HCl (Xylocaine 2% Viscous) 5 ml ONCE ONCE PO 07/29/25 21:30 07/29/25 21:31 DC 07/29/25 22:34 Belladonna Alkaloids/ Phenobarbital ( Elixir) 5 ml ONCE ONCE PO 07/29/25 21:30 07/29/25 21:31 DC 07/29/25 21:30 Metoclopramide HCl (Reglan Injection) 5 mg ONCE ONCE IV 07/29/25 23:00 07/29/25 23:01 DC 07/29/25 23:21 Pantoprazole Sodium (Protonix) 40 mg ONCE ONCE IV 07/29/25 23:15 07/29/25 23:16 DC 07/29/25 23:21 Morphine Sulfate 2 mg ONCE ONCE IV 07/30/25 00:15 07/30/25 00:16 DC 07/30/25 00:33 Sodium Chloride 2,000 ml @ 1,000 mls/hr Q2H ONCE IV 07/30/25 01:15 07/30/25 03:14 DC 07/30/25 01:15 Insulin Human Regular (InsuLIN R) 5 units ONCE ONCE IV 07/30/25 01:30 07/30/25 01:31 DC 07/30/25 04:15 X-Ray, Labs, Meds, VS Comment CT abdomen shows no acute findings. Elevated glucose and anion gap. Elevated Lactic acid septic protocol started. Placed for admission for sepsis, hyperglycemia, abdominal pain, nausea and vomiting. Patient will require telemetry. Condition Currently guarded. Images Reviewed?: Images reviewed and evaluated by me Time of 1ST Reevaluation: 21:10 Reevaluation 1ST: Unchanged Time of 2ND Reevaluation: 01:20 Reevaluation 2ND: Unchanged Time of 3RD Reevaluation: 03:25 Reevaluation 3RD: Unchanged Patient Education/Counseling: Diagnosis, Treatment Family Education/Counseling: Diagnosis, Treatment, Need For Follow Up SEPSIS Sepsis Screen Date sepsis recognized/suspect: Jul 29, 2025 Time Sepsis recognized/suspect: 2048 Recent Procedure: No On Antibiotic Therapy: No Respiratory Rate >20: No Heart Rate >90: No Temp<36 C (96.8 F) or >38.3 C: No SBP <90 or MAP <65 mmHG: No New Acute Mental Status Change: No Is the patient on CPAP, BIPAP,: No Physician Orders Ct Ab Pel Wo Con-No Oral Or Iv (07/30/25 01:15) Vital Signs Date Time Temp Pulse Resp B/P (MAP) Pulse Ox O2 Delivery O2 Flow Rate FiO2 07/30/25 00:33 83 22 162/100 07/29/25 20:39 98.7 69 20 151/97 99 98.7 Laboratory Tests Test 07/29/25 23:05 White Blood Count 13.6 10^3/uL (4.4-10.8) H Medications Medications Dose Ordered Sig/Germania Route Start Time Stop Time Status Last Admin Dose Admin Al Hydrox/Mg Hydrox/Simethicone 30 ml ONCE ONCE PO 07/29/25 21:30 07/29/25 21:31 DC 07/29/25 22:34 Belladonna Alkaloids/ Phenobarbital 5 ml ONCE ONCE PO 07/29/25 21:30 07/29/25 21:31 DC 07/29/25 21:30 Insulin Human Regular 5 units ONCE ONCE IV 07/30/25 01:30 07/30/25 01:31 DC 07/30/25 04:15 Lidocaine HCl 5 ml ONCE ONCE PO 07/29/25 21:30 07/29/25 21:31 DC 07/29/25 22:34 Metoclopramide HCl 5 mg ONCE ONCE IV 07/29/25 23:00 07/29/25 23:01 DC 07/29/25 23:21 Morphine Sulfate 2 mg ONCE ONCE IV 07/30/25 00:15 07/30/25 00:16 DC 07/30/25 00:33 Pantoprazole Sodium 40 mg ONCE ONCE IV 07/29/25 23:15 07/29/25 23:16 DC 07/29/25 23:21 Sodium Chloride 2,000 ml @ 1,000 mls/hr Q2H ONCE IV 07/30/25 01:15 07/30/25 03:14 DC 07/30/25 01:15 Departure 1 Departure Time of Disposition: 01:18 Impression: Primary Impression: Diabetes mellitus with hyperglycemia Qualified Codes: E11.65 - Type 2 diabetes mellitus with hyperglycemia; Z79.4 - manager intermediate (current) use of insulin Additional Impressions: Abdominal pain Qualified Codes: R10.84 - Generalized abdominal pain Nausea and vomiting Qualified Codes: R11.2 - Nausea with vomiting, unspecified Sepsis, unspecified organism Qualified Codes: A41.9 - Sepsis, unspecified organism Disposition: 01 HOME / SELF CARE / HOMELESS Condition: Guarded Discharged With: Spouse Critical Care Note Critical Care Time?: No Stability Stability form required: CRISTHIAN Lima Jul 30, 2025 01:20
[2025-07-30] MEDS ORDERED: DEXTROSE (50%) 50ML SYRG IV PRN (02:00)
[2025-07-30] MEDS ORDERED: VANCOMYCIN 1GM/250ML KIT 250 ML IV ONE (02:00)
[2025-07-30] MEDS ORDERED: MORPHINE SULFATE INJ 2 MG/ml SYRG IV PRN (02:00)
[2025-07-30] MEDS ORDERED: VANCOMYCIN PER PHARMACY 0 MG IV SCH (02:00)
[2025-07-30] MEDS: SODIUM CHLORIDE 0.9% 3,000 ML IV ONE (02:00)
--- NOTE | 2025-07-30 02:04 | DVHHP2 ---
History of Present Illness History of Present Illness Patient is 39 years old female with a past medical history of diabetes mellitus type 2, hypertension, GERD, thyroid disease, Belle esophagitis, gastritis came with a complaint of abdominal pain. As per patient she has been having abdominal pain started yesterday morning around a.m. which woke her up from sleep, 06/23, epigastric/upper abdominal, initially it was intermittent then it gradually became constant, radiating to the back. Patient also endorsed nausea and vomiting several times, with blood. On further inquiry patient reported she had diarrhea 5-6 times, no blood. Patient also reported burning chest pain started today, 01/21. On further inquiry patient reported she was feeling chilled at home but did not measure temperature. Patient was recently admitted at [facility] in April, and had endoscopy which revealed candidal esophagitis, 1-2 cm sliding hiatal hernia with erosive gastritis and mild gastritis. Echocardiogram on 04/15/2025 revealed LVEF 65%. Patient denied any rash, dysarthria, change in vision, cough. PMH-diabetes mellitus type 2, hypertension, GERD, thyroid disease, Belle esophagitis, gastritis PSH- hysterectomy due to teratoma, cholecystectomy Family history-mom and dad both had diabetes mellitus, Allergy- penicillin, sulfa antibiotic, aspirin Personal History/ Social History- ex-smoker, ex alcoholic, occasional alcoholic, last drinking 1 month before, use marijuana, last use yesterday, lives with her Review of Systems Review of Systems Cardiovascular- deny acute cough or palpitation Respiratory denies cough or short of breath or wheezing Musculoskeletal-denies acute joint swelling or tenderness or redness Neurological- denies acute dysarthria, dysphagia, change in vision Psychiatry- denies depression or SI or HI Skin- denies acute rash or purpura Allergies: Coded Allergies: Penicillins (Verified Allergy, Unknown, 04/14/25) Sulfa Antibiotics (Verified Allergy, Unknown, 04/14/25) Medications Current Medications Medications Dose Ordered Sig/Germania Route Start Time Stop Time Status Last Admin Dose Admin Sodium Chloride 1,000 ml @ 120 mls/hr Q8H20M IV 07/30/25 02:00 UNV Morphine Sulfate 2 mg Q4HPRN PRN IV 07/30/25 02:00 UNV Morphine Sulfate 2 mg Q30M PRN IV 07/30/25 02:00 UNV Meropenem 50 ml @ 17 mls/hr Q8HR IV 07/30/25 06:00 UNV Vancomycin HCl 0 ml @ 0 mls/hr PER PHARMACY IV 07/30/25 02:00 UNV Diagnostic Test (Pha) 1 strip ACHS 07/30/25 07:00 UNV Insulin Human Regular HS SC 07/30/25 22:00 UNV Insulin Human Regular AC SC 07/30/25 07:00 UNV Dextrose 50 ml UD PRN IV 07/30/25 02:00 UNV Exam Vital Signs Vital Signs Date Time Temp Pulse Resp B/P (MAP) Pulse Ox O2 Delivery O2 Flow Rate FiO2 07/30/25 00:33 83 22 162/100 07/29/25 20:39 98.7 99 98.7 Exam General examination- patient in pain HEENT- PEERLA, no acute nasal discharge Cardiovascular- S1-S2 audible, rate and rhythm regular, no murmur Respiratory- CTAB, no wheeze or rhonchi Gastrointestinal-abdominal wall tenderness++, bowel sound+. Nondistended Musculoskeletal-no acute joint swelling or tenderness or redness Lower extremity- no leg edema Neurological- cranial nerves intact, no acute dysarthria or dysphagia Psychiatry- denies depression or SI or HI Skin- no acute rash or purpura Labs/Xrays Labs Test 07/29/25 23:20 07/29/25 23:05 Range/Units White Blood Count 13.6 H 4.4-10.8 10^3/uL Red Blood Count 5.54 H 4.0-5.20 10^6/uL Hemoglobin 14.7 12.2-16.2 g/dL Hematocrit 43.4 36.0-46.0 % Mean Corpuscular Volume 78.4 L 80.0-100.0 fL Mean Corpuscular Hemoglobin 26.5 L 28.0-32.0 pg Mean Corpuscular Hemoglobin Concent 33.8 32.0-36.0 g/dL Red Cell Distribution Width 15.3 H 11.8-14.3 % Platelet Count 353 140-450 10^3/uL Mean Platelet Volume 9.9 6.9-10.8 fL Neutrophils (%) (Auto) 86.6 H 37.0-80.0 % Lymphocytes (%) (Auto) 8.5 L 10.0-50.0 % Monocytes (%) (Auto) 4.4 0.0-12.0 % Eosinophils (%) (Auto) 0.0 0.0-7.0 % Basophils (%) (Auto) 0.5 0.0-2.0 % Neutrophils # (Auto) 11.7 H 1.6-8.6 10 ^3/uL Lymphocytes # (Auto) 1.1 0.4-5.4 10 ^3/uL Monocytes # (Auto) 0.6 0-1.3 10 ^3/uL Eosinophils # (Auto) 0 0-0.8 10 ^3/uL Basophils # (Auto) 0.1 0-0.2 10 ^3/uL Nucleated Red Blood Cells 0.1 % Sodium Level 144 136-145 mmol/L Potassium Level 3.5 3.5-5.1 mmol/L Chloride Level 105 98-107 mmol/L Carbon Dioxide Level 20 20-31 mmol/L Anion Gap 19 H 5-15 Blood Urea Nitrogen 9 9-23 mg/dL Creatinine 0.82 0.550-1.02 mg/dL Glomerular Filtration Rate Calc 93 >90 mL/min BUN/Creatinine Ratio 11.0 10.0-20.0 Serum Glucose 242 H 74-106 mg/dL Calcium Level 10.7 H 8.7-10.4 mg/dL Total Bilirubin 0.5 0.2-1.0 mg/dL Aspartate Amino Transferase (AST) 20 13-40 U/L Alanine Aminotransferase (ALT) 21 7-40 U/L Alkaline Phosphatase 87 46-116 U/L Total Protein 8.5 H 5.7-8.2 g/dL Albumin 5.5 H 3.2-4.8 g/dL SEPSIS Sepsis Screen Date sepsis recognized/suspect: Jul 29, 2025 Time Sepsis recognized/suspect: 2048 Recent Procedure: No On Antibiotic Therapy: No Respiratory Rate >20: No Heart Rate >90: No Temp<36 C (96.8 F) or >38.3 C: No SBP <90 or MAP <65 mmHG: No New Acute Mental Status Change: No Is the patient on CPAP, BIPAP,: No Physician Orders Beta-Hydroxybutyrate (07/30/25 01:10) Sodium Chloride 0.9% (07/30/25 01:15) Ct Ab Pel Wo Con-No Oral Or Iv (07/30/25 01:15) Admit (07/30/25 01:54) Code Status (07/30/25 01:54) Sodium Chloride 0.9% (07/30/25 02:00) Complete Blood Count (07/31/25 04:00) Comprehensive Metabolic Panel (07/31/25 04:00) Npo (Nothing By Mouth) Diet (07/30/25 Breakfast) Morphine Sulfate Injection (07/30/25 02:00) Morphine Sulfate Injection (07/30/25 02:00) Stat Ekg For Chest Pain (07/30/25 01:54) Notify Of Changes From Base (07/30/25 01:54) Valet Service Attendant For 24 Hours (07/30/25 01:54) Blood Culture (07/30/25 01:57) Urine Bacterial Culture (07/30/25 01:57) Sodium Chloride 0.9% (07/30/25 02:00) Meropenem 1gm Ivpb (Merrem 1gm/50ml) (07/30/25 06:00) Vancomycin 1gm/250ml Kit (07/30/25 02:00) Vancomycin Per Pharmacy (07/30/25 02:00) Glucose Blood (Accu-Chek Comfort Curve T (07/30/25 07:00) Insulin R (Human) (Insulin R) (07/30/25 22:00) Insulin R (Human) (Insulin R) (07/30/25 07:00) Dextrose 50% Syringe (07/30/25 02:00) Sequential Compression Device (07/30/25 01:57) Type And Screen (07/30/25 01:57) 2 Large Bore Ivs (20mg Or Larg (07/30/25 02:01) Vital Signs Date Time Temp Pulse Resp B/P (MAP) Pulse Ox O2 Delivery O2 Flow Rate FiO2 07/30/25 00:33 83 22 162/100 07/29/25 20:39 98.7 69 20 151/97 99 98.7 Laboratory Tests Test 07/29/25 23:05 White Blood Count 13.6 10^3/uL (4.4-10.8) H Medications Medications Dose Ordered Sig/Germania Route Start Time Stop Time Status Last Admin Dose Admin Al Hydrox/Mg Hydrox/Simethicone 30 ml ONCE ONCE PO 07/29/25 21:30 07/29/25 21:31 DC 07/29/25 22:34 30 ML Belladonna Alkaloids/ Phenobarbital 5 ml ONCE ONCE PO 07/29/25 21:30 07/29/25 21:31 DC 07/29/25 21:30 5 ML Lidocaine HCl 5 ml ONCE ONCE PO 07/29/25 21:30 07/29/25 21:31 DC 07/29/25 22:34 5 ML Metoclopramide HCl 5 mg ONCE ONCE IV 07/29/25 23:00 07/29/25 23:01 DC 07/29/25 23:21 5 MG Morphine Sulfate 2 mg ONCE ONCE IV 07/30/25 00:15 07/30/25 00:16 DC 07/30/25 00:33 2 MG Pantoprazole Sodium 40 mg ONCE ONCE IV 07/29/25 23:15 07/29/25 23:16 DC 07/29/25 23:21 40 MG Assessment/Plan Assessment/Plan Assessment and plan # sepsis # acute gastroenteritis # intractable abdominal pain likely due to gastroenteritis/marijuana induced hyperemesis, rule out acute pancreatitis # lactic acidosis # uncontrolled diabetes mellitus. Rule out DKA -beta hydroxybutyrate 0.340 -lipase 36 -CT abdomen negative for acute intraabdominal abnormality -chest x-ray-no acute cardiopulmonary abnormality -ordered blood culture, urine culture -ordered IV normal saline bolus and then maintenance -ordered IV antibiotic meropenem and vancomycin as per pharmacy protocol -lactic acid-4.5 -continue insulin sliding scale as prescribed -monitor blood sugar # hematemesis # suspected Anne Marie-Hu tear due to intractable nausea and vomiting -continue IV pantoprazole 40 mg b.i.d. -ordered GI consult -monitor H&H -monitor vitals -ordered typing and cross matching -ordered two large bore cannula # acute chest pain rule out acute coronary syndrome -EKG -troponin I-3> 3 -monitor vitals # diabetes mellitus type 2 with hyperglycemia -hemoglobin A1c 6.5 -continue insulin sliding scale as prescribed -monitor blood sugar # hypertension -resumed home medication lisinopril # GERD -pantoprazole 40 mg IV b.i.d. Diet NPO PCP- Varinder Lao Goals of care, Code status full code ; discussed with >15 minutes PUD prophylaxis: Pantoprazole DVT prophylaxis: SCD Plan discussed with Dr. Darnell , nursing staff, , patient Total time spent on patient evaluation, chart review, assessment and plan, discussion discussion >35 minutes Plan discussed with: Patient, Spouse, Other (RN) My Orders Orders - MELITON MACHUCA Procedure Category Date Status Time Admit ADMIT 07/30/25 Transmitted 01:54 Code Status CODE 07/30/25 Transmitted 01:54 Sodium Chloride 0.9% PHA 07/30/25 Logged 02:00 Complete Blood Count LAB 07/31/25 Verified 04:00 Comprehensive LAB 07/31/25 Verified Metabolic Panel 04:00 Npo (Nothing By DIET 07/30/25 Transmitted Mouth) Diet Breakfast Morphine Sulfate PHA 07/30/25 Logged Injection 02:00 Morphine Sulfate PHA 07/30/25 Logged Injection 02:00 Stat Ekg For Chest [facility] 07/30/25 In Process Pain 01:54 Notify Of Changes [facility] 07/30/25 In Process From Base 01:54 Valet Service Attendant For [facility] 07/30/25 In Process 24 Hours 01:54 Blood Culture [facility] 07/30/25 Logged 01:57 Urine Bacterial [facility] 07/30/25 Logged Culture 01:57 Sodium Chloride 0.9% PHA 07/30/25 Logged 02:00 Meropenem 1gm Ivpb [facility] 07/30/25 Logged (Merrem 1gm/50ml) 06:00 Vancomycin 1gm/250ml PHA 07/30/25 Logged Kit 02:00 Vancomycin Per PHA 07/30/25 Logged Pharmacy 02:00 Glucose Blood [facility] 07/30/25 Logged (Accu-Chek Comfort 07:00 Insulin R (Human) PHA 07/30/25 Logged (Insulin R) 22:00 Insulin R (Human) PHA 07/30/25 Logged (Insulin R) 07:00 Dextrose 50% Syringe [facility] 07/30/25 Logged 02:00 Sequential [facility] 07/30/25 In Process Compression Device 01:57 Type And Screen BBK 07/30/25 Logged 01:57 2 Large Bore Ivs [facility] 07/30/25 In Process (20mg Or Larg 02:01 Date of Service: Jul 30, 2025 Billing Provider: SANCHO DARNELL MD Common Visit Codes: [id number] INP/OBS CARE (HIGH) Secondary Visit Codes: [id number] CARE PLAN 30 MINUTES MELITON MACHUCA Jul 30, 2025 02:04
--- NOTE | 2025-07-30 02:28 | DVH ---
MEDICAL RECORDS NUMBER: [id number] PROCEDURE: CT CT AB PEL WO CON-NO ORAL OR IV DATE: 07/30/2025 01:20 AM HISTORY: Pain nausea and vomiting TECHNIQUE: CT of the abdomen and pelvis is performed without IV contrast. CONTRAST: none Oral Contrast: No oral contrast was utilized. COMPARISON: CT CT AB PEL WO CON-NO ORAL OR IV on DOS: 04/14/25, CT CT AB PEL WO CON-NO ORAL OR IV on DOS: 03/16/25, CT CT AB PEL WITH IV CON ONLY on DOS: 01/12/25, CT CT AB PEL WITH IV CON ONLY on DOS: 11/24/24, CT CT AB PEL WITH IV CON ONLY on DOS: 05/27/24 RADIATION DOSE INFORMATION: Automated exposure control dose reduction techniques were used. FINDINGS: Lung bases: Limited evaluation of the lung bases demonstrates no focal airspace process or pneumothorax. Mediastinum:Lower mediastinal structures appear unremarkable. Liver: The liver is normal in size. There is no focal liver lesion. Biliary ducts: There is no evidence of intrahepatic or extrahepatic biliary ductal dilatation. Gallbladder: The gallbladder has apparently been surgically removed. Spleen: The spleen is normal in size without focal lesion. Stomach: The stomach appears unremarkable. Pancreas: The pancreas is unremarkable. Adrenal glands: The adrenal glands are unremarkable. Kidneys: The kidneys are normal in size and are symmetric. There is no evidence of hydronephrosis. No focal renal lesion is noted. Aorta and IVC: The aorta and IVC are patent and are normal in size. Mesenteric vessels: Major mesenteric vessels appear to be intact. Bowel: The visualized portions of the small and large bowel are normal in caliber. Appendix: The appendix is unremarkable. Pelvis:Pelvic structures appear unremarkable. Lymph nodes: There is no evidence of lymphadenopathy. Osseous structures: The osseous structures are intact. No lytic or blastic osseous lesion is noted. Free fluid/free air: None IMPRESSION: 1. No acute process is seen. No findings are seen to explain the patient's symptoms.
[2025-07-30 02:37] LABS: Base Excess 0.1 mmol/L (-2.0-3.0)
[2025-07-30 03:19] LABS: Lactic Acid w/Reflex 4.5 mmol/L (0.4-2.0)
[2025-07-30] MEDS: VANCOMYCIN 1GM/250ML KIT 250 ML IV ONE (04:07)
[2025-07-30] MEDS: InsuLIN REG 1unit/0.01ml Soln (100units/ml) IV ONE (04:15)
[2025-07-30 04:49] LABS: Magnesium 1.8 mg/dL (1.6-2.6)
--- NOTE | 2025-07-30 05:58 | DVH ---
CHEST RADIOGRAPH Indication: Rule out pneumonia/pneumomediastinum Technique: 1 view Comparison: XY CHEST PORTABLE on DOS: 04/15/25, XY CHEST PORTABLE on DOS: 03/16/25, XY CHEST PORTABLE on DOS: 05/06/24, XY CHEST PORTABLE on DOS: 10/26/23 FINDINGS: Lines and Tubes: None. Lungs/Pleura: No focal consolidation, pleural effusion or pneumothorax. Similar bilateral infrahilar interstitial prominence. Cardiomediastinum: Unremarkable. Other: No acute osseous abnormality. IMPRESSION: 1. No acute cardiopulmonary abnormality or significant change from the prior exam.
[2025-07-30] MEDS: MORPHINE SULFATE INJ 2 MG/ml SYRG IV PRN (06:22)
[2025-07-30] MEDS ORDERED: MAGNESIUM SULFATE 1GM/100ML 100 ML IV ONE (06:30)
[2025-07-30] MEDS: SODIUM CHLORIDE 0.9% 1,000 ML IV SCH (06:46)
[2025-07-30] MEDS: POTASSIUM CHL 20MEQ/100ML 100 ML IV SCH (06:48)
[2025-07-30] MEDS: MEROPENEM 1GM IVPB 50 ML IV SCH (06:50)
[2025-07-30] MEDS: ACCU-CHEK COMFORT CURVE STRIP VI SCH (07:10)
[2025-07-30] MEDS: InsuLIN REG 1unit/0.01ml Soln (100units/ml) SC SCH ×2 (07:11→21:11)
[2025-07-30] MEDS: ONDANSETRON HCL 4 MG/2 ML VIAL IV PRN (09:21)
[2025-07-30] MEDS: PANTOPRAZOLE 40 MG/10 ML VIAL INJ IV SCH (09:26)
[2025-07-30 10:29] LABS: Hematocrit 35.2 % (36.0-46.0); Hemoglobin 11.8 g/dL (12.2-16.2)
[2025-07-30] MEDS: MAGNESIUM SULFATE 1GM/100ML 100 ML IV ONE (10:53)
[2025-07-30 13:06] LABS: Urine Protein, UAD Negative (Negative)
[2025-07-30] MEDS: ALPRAZolam 0.5 MG TAB PO PRN (13:07)
[2025-07-30 13:15] LABS: Barbiturate Scree,Urine Neg (NEGATIVE); Cannabinoid Screen, Urine Pos (NEGATIVE); Opiate Scree,Urine Pos (NEGATIVE)
[2025-07-30 13:16] LABS: Amphetamine Screen, Urine Neg (NEGATIVE); Benzodiazephine Screen, Urine Neg (NEGATIVE); Cocaine Screen, Urine Neg (NEGATIVE); Phencyclidine Screen, Urine Neg (NEGATIVE)
[2025-07-30] MEDS: VANCOMYCIN 1GM/250ML KIT 250 ML IV SCH (18:10)
[2025-07-30 23:10] LABS: Hematocrit 36.9 % (36.0-46.0); Hemoglobin 12.2 g/dL (12.2-16.2)
[2025-07-31] VITALS (8 sets, daily range): BP systolic 113–161; BP diastolic 77–98; PULSE 54–68; RESP 16–18; TEMP 97.9–98.5; O2SAT 97–99
[2025-07-31 05:53] LABS: Hemoglobin 12.0 g/dL (12.2-16.2); Nucleated Red Blood Cells % 0.1 %
[2025-07-31 05:56] LABS: Hematocrit 35.3 % (36.0-46.0); Mean Corpuscular Hemoglobin 27.1 pg (28.0-32.0); Mean Corpuscular Volume 79.8 fL (80.0-100.0)
[2025-07-31 06:15] LABS: Alanine Aminotransferase 22 U/L (7-40); Alkaline Phosphatase 59 U/L (46-116); Anion Gap 12 (5-15); Calcium 8.8 mg/dL (8.7-10.4); Carbon Dioxide 24 mmol/L (20-31); Glucose 94 mg/dL (74-106); Sodium 143 mmol/L (136-145); Total Protein 6.1 g/dL (5.7-8.2)
[2025-07-31 06:16] LABS: Albumin 3.9 g/dL (3.2-4.8); BUN/Creatinine Ratio 8.5 (10.0-20.0); Bilirubin, Total 0.7 mg/dL (0.2-1.0); Blood Urea Nitrogen < 5 mg/dL (9-23); Chloride 107 mmol/L (98-107); Potassium 3.4 mmol/L (3.5-5.1)
[2025-07-31] MEDS: HYDROmorphone HCL 2 MG/ML VL/or syr IV ONE (09:18)
[2025-07-31 10:20] LABS: Hematocrit 37.0 % (36.0-46.0)
[2025-07-31 10:23] LABS: Hemoglobin 12.2 g/dL (12.2-16.2)
[2025-07-31 11:10] LABS: Free T3 3.01 pg/mL (2.3-4.2)
[2025-07-31] MEDS: POTASSIUM CHL 20MEQ/100ML 100 ML IV SCH (11:11)
[2025-07-31 11:29] LABS: Hepatitis C Antibody Negative (Negative)
[2025-07-31 11:31] LABS: Free T3 3.02 pg/mL (2.3-4.2)
[2025-07-31 11:32] LABS: Free T4 (Free Thyroxine) 1.13 ng/dL (0.89-1.76)
[2025-07-31 12:51] LABS: Free T4 (Free Thyroxine) 1.0 ng/dL (0.89-1.76)
--- NOTE | 2025-07-31 14:52 | DVHCONRES ---
Date Seen: Jul 31, 2025 Resident Creating Document: LUCIAN RAMIREZ RESIDENT History of Present Illness Patient is 39 years old female with a past medical history of diabetes mellitus type 2, hypertension, GERD, thyroid disease, Belle esophagitis, gastritis came with a complaint of abdominal pain. As per patient she has been having abdominal pain started yesterday morning around a.m. which woke her up from sleep, 06/23, epigastric/upper abdominal, initially it was intermittent then it gradually became constant, radiating to the back. Patient also endorsed nausea and vomiting several times, with blood. On further inquiry patient reported she had diarrhea 5-6 times, no blood. Patient also reported burning chest pain started today, 01/21. On further inquiry patient reported she was feeling chilled at home but did not measure temperature. Patient was recently admitted at [facility] in April, and had endoscopy which revealed can didal esophagitis, 1-2 cm sliding hiatal hernia with erosive gastritis and mild gastritis. Echocardiogram on 04/15/2025 revealed LVEF 65%. Patient denied any rash, dysarthria, change in vision, cough. PMH-diabetes mellitus type 2, hypertension, GERD, thyroid disease, Belle esophagitis, gastritis PSH- hysterectomy due to teratoma, cholecystectomy Family history-mom and dad both had diabetes mellitus, Allergy- penicillin, sulfa antibiotic, aspirin Personal History/ Social History- ex-smoker, ex alcoholic, occasional alcoholic, last drinking 1 month before, use marijuana, last use yesterday, lives with her Patient seen and examined at bedside. Tentative plan for EGD tomorrow. Family History: Diabetes mellitus G8 MOTHER Hypertension G8 MOTHER G8 FATHER Patient's mother is G8 MOTHER Allergies: Coded Allergies: Penicillins (Verified Allergy, Unknown, 04/14/25) Sulfa Antibiotics (Verified Allergy, Unknown, 04/14/25) Home Meds Active Scripts Fluconazole (Diflucan) 200 Mg Tab, 1 TAB PO DAILY, #7 TAB Prov:MARIOLA BLUM MD 04/20/25 Nystatin (Mouth-Throat) (Mycostatin (Mouth-Throat)) 500,000 Units/5 Ml Ss, 5 ML MT QID for 30 Days, #600 ML Prov:MARIOLA BLUM MD 04/20/25 Sucralfate (CARAFATE SUSP) 1 Gm/10 Ml Ss, 10 ML PO QID, #1200 ML 3 Refills Prov:MARIOLA BLUM MD 04/20/25 Pantoprazole Sodium Sesquihydr (Pantoprazole Sodium Dr) 40 Mg Tab, 40 MG PO DAILY, #30 TAB Prov:MARIOLA BLUM MD 04/20/25 Reported Medications Lisinopril (Lisinopril) 5 Mg Tab, 1 TAB PO DAILY for 90 Days, #90 04/17/25 Metformin Hydrochloride (Metformin Hcl) 1,000 Mg Tab, 1 TAB PO BID for 90 Days, #180 04/17/25 Glipizide (Glipizide) 5 Mg Tab, 1 TAB PO DAILY for 30 Days, #30 04/17/25 Diphenhydramine Hcl (Banophen) 25 Mg Cap, 1 CAP PO QHSP for 30 Days, #30 04/17/25 Simvastatin (Simvastatin) 5 Mg Tab, 1 TAB PO QPM for 30 Days, #30 04/17/25 Escitalopram Oxalate (ESCITALOPRAM OXALATE) 10 Mg Tab, 1 TAB PO DAILY for 30 Days, #30 04/17/25 Dicyclomine Hcl (Dicyclomine Hcl) 20 Mg Tab, 1 TAB PO TID PRN for UNSPECIFIED ABDOMINAL PAIN for 30 Days, #90 04/17/25 Current Medications Current Medications Medications (Trade) Dose Ordered Sig/Germania Route PRN Reason Start Time Stop Time Status Last Admin Insulin Human Regular (InsuLIN R) HS SC 07/30/25 22:00 Vancomycin HCl 250 ml @ 250 mls/hr Q12H IV 07/30/25 18:00 07/31/25 04:57 Potassium Chloride 100 ml @ 50 mls/hr Q2H IV 07/31/25 08:15 07/31/25 12:14 DC 07/31/25 11:11 Insulin Glargine (Lantus) 10 units QAM SC 08/01/25 07:00 Vital Signs Vital Signs Date Time Temp Pulse Resp B/P (MAP) Pulse Ox O2 Delivery O2 Flow Rate FiO2 07/31/25 09:18 72 18 145/88 07/31/25 01:00 97.9 97 97.9 07/30/25 20:00 Room Air* 0 21 Physical Exam Patient lying in bed, in no acute distress General: Well-built, afebrile, palor, mucosae are moist Cardiovascular: Regular S1 and S2. No murmurs, gallops or rubs. No JVD santos vation. No pedal edema Respiratory: Normal B/L air entry on room air. Clear lung sounds on auscultation Abdomen: Soft, mildly tender, nondistended, normoactive bowel sounds, no rebound tenderness, no organomegaly, no masses Genitourinary: Deferred MSK/skin: Mobilizes 4 limbs. Skin is dry and warm Labs/Diagnostic Data Labs Test 07/31/25 11:46 07/31/25 10:01 07/31/25 05:00 07/30/25 11:55 Range/Units POC Glucose 97 70-106 mg/dl Hemoglobin 12.2 12.2-16.2 g/dL Hematocrit 37.0 36.0-46.0 % White Blood Count 10.4 4.4-10.8 10^3/uL Red Blood Count 4.42 4.0-5.20 10^6/uL Mean Corpuscular Volume 79.8 L 80.0-100.0 fL Mean Corpuscular Hemoglobin 27.1 L 28.0-32.0 pg Mean Corpuscular Hemoglobin Concent 33.9 32.0-36.0 g/dL Red Cell Distribution Width 15.6 H 11.8-14.3 % Platelet Count 238 140-450 10^3/uL Mean Platelet Volume 9.7 6.9-10.8 fL Neutrophils (%) (Auto) 63.4 37.0-80.0 % Lymphocytes (%) (Auto) 26.4 10.0-50.0 % Monocytes (%) (Auto) 6.3 0.0-12.0 % Eosinophils (%) (Auto) 1.3 0.0-7.0 % Basophils (%) (Auto) 2.6 H 0.0-2.0 % Neutrophils # (Auto) 6.6 1.6-8.6 10 ^3/uL Lymphocytes # (Auto) 2.7 0.4-5.4 10 ^3/uL Monocytes # (Auto) 0.7 0-1.3 10 ^3/uL Eosinophils # (Auto) 0.1 0-0.8 10 ^3/uL Basophils # (Auto) 0.3 H 0-0.2 10 ^3/uL Nucleated Red Blood Cells 0.1 % Sodium Level 143 136-145 mmol/L Potassium Level 3.4 L 3.5-5.1 mmol/L Chloride Level 107 98-107 mmol/L Carbon Dioxide Level 24 20-31 mmol/L Anion Gap 12 5-15 Blood Urea Nitrogen < 5 L 9-23 mg/dL Creatinine 0.59 0.550-1.02 mg/dL Glomerular Filtration Rate Calc 118 >90 mL/min BUN/Creatinine Ratio 8.5 L 10.0-20.0 Serum Glucose 94 74-106 mg/dL Calcium Level 8.8 8.7-10.4 mg/dL Magnesium Level 1.9 1.6-2.6 mg/dL Total Bilirubin 0.7 0.2-1.0 mg/dL Aspartate Amino Transferase (AST) 36 13-40 U/L Alanine Aminotransferase (ALT) 22 7-40 U/L Alkaline Phosphatase 59 46-116 U/L Total Protein 6.1 5.7-8.2 g/dL Albumin 3.9 3.2-4.8 g/dL Free Thyroxine (T4) Calculated 1.00 0.89-1.76 ng/dL Free Triiodothyronine (T3) pg/mL 3.01 2.3-4.2 pg/mL Urine Color Light-yellow Yellow Urine Clarity Clear Clear Urine pH 6.0 5.0-9.0 Urine Specific [place] 1.015 1.001-1.035 Urine Protein Negative Negative Urine Ketones 1+ H Negative Urine Blood Negative Negative /uL Urine Nitrite Negative Negative Urine Bilirubin Negative Negative Urine Urobilinogen Normal Negative mg/dL Urine Leukocyte Esterase Negative Negative /uL Urine RBC 1 0 - 4 /hpf Urine Microscopic WBC 1 0-5 /HPF Urine Squamous Epithelial Cells Few <5 /hpf Urine Bacteria None seen None Seen /hpf Urine Mucus Few None Seen Urine Osmolality 613 mOsm/kg Urine Glucose 2+ H Normal mg/dL Urine Test Negative Negative Urine Opiates Screen Pos NEGATIVE Urine Fentanyl Screen Pos NEGATIVE Urine Barbiturates Screen Neg NEGATIVE Urine Phencyclidine Screen Neg NEGATIVE Urine Amphetamines Screen Neg NEGATIVE Urine Benzodiazepines Screen Neg NEGATIVE Urine Cocaine Screen Neg NEGATIVE Urine Cannabinoids Screen Pos NEGATIVE Test 07/30/25 06:09 07/30/25 02:25 07/30/25 02:18 07/29/25 23:20 Range/Units Hemoglobin A1c 6.5 H <5.7 % A1C Lactic Acid Level 3.9 *H 0.4-2.0 mmol/L Phosphorus Level 2.1 L 2.4-5.1 mg/dL Troponin I High Sensitivity 6 </=34 ng/L Vitamin B12 Level 443 211-911 pg/mL Vitamin D 25-Hydroxy 25.3 L 30.0-100 ng/mL Folic Acid 11.19 >5.38 ng/mL Hepatitis B Surface Antibody Positive H Negative Hepatitis C Antibody Negative Negative Blood Gas Specimen Type Arterial Blood Gas Sample Site Left radial Blood Gas Patient Temperature 37.0 Arterial Blood Date Drawn [id number] Arterial Blood pH 7.602 *H 7.350-7.450 Arterial Blood Partial Pressure CO2 19.6 *L 32.0-45.0 mmHg Arterial Blood Partial Pressure O2 114.3 H 83.0-108.0 mmHg Arterial Blood HCO3 18.9 L 21.0-28.0 mmol/L Arterial Blood Oxygen Saturation 98.2 H 94.0-98.0 % Arterial Blood Base Excess 0.1 -2.0-3.0 mmol/L Arterial Blood Oxyhemoglobin 96.8 94.0-98.0 % Arterial Blood Carboxyhemoglobin 0.9 0.5-1.5 % Arterial Blood Methemoglobin 0.5 0.0-1.5 % Sarath Test Yes Blood Gas Total Hemoglobin 15.40 12.0-16.0 g/dL Blood Gas Modality Room air FiO2 % 21.0 Blood Gas Critical Value Read Back yes Blood Gas Notified Whom Blood Gas Notified Time [id number] Blood Gas Notified By gun fitter reba Thyroid Stimulating Hormone (TSH) 0.53 L 0.55-4.78 uIU/mL Plasma/Serum Blood Alcohol < 3.0 <10 mg/dL Beta-Hydroxybutyric Acid 0.340 < 0.4 mmol/L Test 07/29/25 23:05 Range/Units Serum Osmolality 305 H 278-298 mOsm/kg Lipase 36 12-53 U/L Microbiology Date/Time Source Procedure Growth Status 07/30/25 11:55 Voided Urine Urine Culture - Preliminary No growth Resulted 07/30/25 02:25 Blood Blood Culture - Preliminary NO GROWTH AFTER 24 HOURS OF INCUBATION. Resulted Assessment Intractable nausea and vomiting GERD Candidal esophagitis History of sliding-type hiatal hernia Lactic acidosis Prediabetes mellitus Marijuana dependence History of the likely Endoscopy April 18, 2025 shows Patient had evidence of candidal esophagitis with whitish yellowish plaques more prominent in the proximal esophagus. 2. 1-2 cm sliding-type hiatal hernia with grade a erosive esophagiti, 3. Mild gastritis otherwise normal examination up to the 2nd and 3rd part of the duodenum with no active bleeding Plan/Recommendation Patient will be scheduled for EGD 08/01/2025. NPO after midnight. Continue Protonix 40 mg IV b.i.d. Carafate suspension 1 g p.o. TID Continue nystatin swish and swallow 5 mL p.o., TID Clear liquid diet Rest of management by primary team Plan discussed with patient in which all questions have been answered Case discussed with Dr. Card Plan discussed with: Patient LUCIAN RAMIREZ RESIDENT Jul 31, 2025 14:52
[2025-07-31] MEDS ORDERED: SUCRALFATE 1 GM/10 ML ORAL SUSP GT SCH (15:00)
--- NOTE | 2025-07-31 16:41 | DVHPNRES ---
Progress Note Date Seen: Jul 31, 2025 Resident Creating Document: MELITON MACHUCA RESIDENT Medical Necessity Reason Pt with a Central, PICC or Fol: No Subjective Review of Systems Patient is 39 years old female with a past medical history of diabetes mellitus type 2, hypertension, GERD, thyroid disease, Belle esophagitis, gastritis came with a complaint of abdominal pain. As per patient she has been having abdominal pain started yesterday morning around a.m. which woke her up from sleep, 06/23, epigastric/upper abdominal, initially it was intermittent then it gradually became constant, radiating to the back. Patient also endorsed nausea and vomiting several times, with blood. On further inquiry patient reported she had diarrhea 5-6 times, no blood. Patient also reported burning chest pain started today, 01/21. On further inquiry patient reported she was feeling chilled at home but did not measure temperature. Patient was recently admitted at [facility] in April, and had endoscopy which revealed candidal esophagitis, 1-2 cm sliding hiatal hernia with erosive gastritis and mild gastritis. Echocardiogram on 04/15/2025 revealed LVEF 65%. Patient denied any rash, dysarthria, change in vision, cough. PMH-diabetes mellitus type 2, hypertension, GERD, thyroid disease, Belle esophagitis, gastritis PSH- hysterectomy due to teratoma, cholecystectomy Family history-mom and dad both had diabetes mellitus, Allergy- penicillin, sulfa antibiotic, aspirin Personal History/ Social History- ex-smoker, ex alcoholic, occasional alcoholic, last drinking 1 month before, use marijuana, last use yesterday, lives with her Patient was seen today at bedside. Labs and chart reviewed. Leukocytosis resolved. Hemoglobin is stable. Patient reported abdominal pain is improving. With the diet to full liquid diet. Potassium 3.4, replenished. Discontinue meropenem and vancomycin, ordered ceftriaxone and metronidazole. Patient was seen by director of employer services, recommended for repeat EGD on 08/01/2025. NPO after midnight. 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 Blood culture and urine culture negative for any growth so far. UDS positive for cannabinoids, fentanyl, opiates. Objective vital signs Vital Sign Date Time Temp Pulse Resp B/P (MAP) Pulse Ox O2 Delivery O2 Flow Rate FiO2 07/31/25 09:18 72 18 145/88 07/31/25 08:00 Room Air* 0 21 11/17/25 01:00 97.9 97 97.9 Total Intake and Output 07/30/25 07/30/25 07/31/25 14:59 22:59 06:59 Intake Total 0 ml 250 ml Output Total 0 ml Balance 0 ml 250 ml medications Current Medications Medications Dose Ordered Sig/Germania Route Start Time Stop Time Status Last Admin Dose Admin Sodium Chloride 1,000 ml @ 120 mls/hr Q8H20M IV 07/30/25 02:00 07/31/25 11:32 120 MLS/HR Morphine Sulfate 2 mg Q4HPRN PRN IV 07/30/25 02:00 07/31/25 03:16 2 MG Morphine Sulfate 2 mg Q30M PRN IV 07/30/25 02:00 Meropenem 50 ml @ 17 mls/hr Q8HR IV 07/30/25 06:00 07/31/25 06:01 17 MLS/HR Vancomycin HCl 0 ml @ 0 mls/hr PER PHARMACY IV 07/30/25 02:00 Diagnostic Test (Pha) 1 strip ACHS 07/30/25 07:00 07/31/25 11:48 1 STRIP Insulin Human Regular HS SC 07/30/25 22:00 Insulin Human Regular AC SC 07/30/25 07:00 07/30/25 07:11 2 UNITS Dextrose 50 ml UD PRN IV 07/30/25 02:00 Ondansetron HCl 4 mg Q6HPRN PRN IV 07/30/25 02:30 07/31/25 09:34 4 MG Pantoprazole Sodium 40 mg BID IV 07/30/25 10:00 07/31/25 09:38 40 MG Alprazolam 2 mg [id number] PRN PO 07/30/25 12:30 07/30/25 13:07 2 MG Vancomycin HCl 250 ml @ 250 mls/hr Q12H IV 07/30/25 18:00 07/31/25 04:57 250 MLS/HR Insulin Glargine 10 units QAM SC 08/01/25 07:00 Sucralfate 1 gm TID@0600,1130,2200 GT 07/31/25 15:00 Nystatin 5 ml QID MT 07/31/25 22:00 Ceftriaxone Sodium 50 ml @ 100 mls/hr DAILY@09 IV 08/01/25 09:00 UNV Metronidazole 100 ml @ 100 mls/hr Q8HR IV 07/31/25 22:00 UNV Examination General examination- patient in pain HEENT- PEERLA, no acute nasal discharge Cardiovascular- S1-S2 audible, rate and rhythm regular, no murmur Respiratory- CTAB, no wheeze or rhonchi Gastrointestinal-abdominal wall tenderness++, bowel sound+. Nondistended Musculoskeletal-no acute joint swelling or tenderness or redness Lower extremity- no leg edema Neurological- cranial nerves intact, no acute dysarthria or dysphagia Psychiatry- denies depression or SI or HI Skin- no acute rash or purpura laboratory and microbiology Laboratory Tests 07/31/25 10:01 07/31/25 05:00 Test 07/31/25 05:00 Range/Units Serum Glucose 94 74-106 mg/dL Microbiology Date/Time Source Procedure Growth Status 07/30/25 11:55 Voided Urine Urine Culture - Preliminary No growth Resulted 07/30/25 02:25 Blood Blood Culture - Preliminary NO GROWTH AFTER 24 HOURS OF INCUBATION. Resulted Problem List/Assessment/Plan Problem List/Assessment/Plan Assessment and plan # sepsis # acute gastroenteritis # intractable abdominal pain likely due to gastroenteritis/marijuana induced hyperemesis, ruled out acute pancreatitis # lactic acidosis # uncontrolled diabetes mellitus. Ruled out DKA, -beta hydroxybutyrate 0.340 -lipase 36 --lactic acid-4.5> 3.9 -CT abdomen negative for acute intraabdominal abnormality -chest x-ray-no acute cardiopulmonary abnormality -blood culture so far negative -urine culture so far negative -continue IV fluid as prescribed -continue ceftriaxone and metronidazole as prescribed -continue insulin sliding scale as prescribed -monitor blood sugar # hematemesis # suspected Anne Marie-Hu tear due to intractable nausea and vomiting -continue IV pantoprazole 40 mg b.i.d. -director of employer services recommended for sucralfate, possible EGD tomorrow on 08/01/2025 -monitor H&H -monitor vitals # acute chest pain likely due to GERD, rule out acute coronary syndrome -EKG-old infarct -troponin I-3> 3 -monitor vitals # diabetes mellitus type 2 with hyperglycemia -hemoglobin A1c 6.5 -continue insulin sliding scale as prescribed -monitor blood sugar # hypertension -resumed home medication lisinopril # GERD # esophageal candidiasis -continue nystatin as prescribed -pantoprazole 40 mg IV b.i.d. -continue sucralfate as prescribed # cannabinoids induced hyperemesis -continue current conservative management # substance abuse -UDS positive for cannabinoids -patient was counseled about the effect of substance abuse on health Xzbk-ztt-[id number] liquid diet Goals of care, Code status full code ; discussed with >15 minutes PUD prophylaxis: Pantoprazole DVT prophylaxis: SCD Plan discussed with Dr. Auguste , nursing staff, patient Total time spent on patient evaluation, chart review, assessment and plan, discussion discussion >35 minutes Plan discussed with: Patient, Spouse, Other (RN) Plan discussed with: Patient, Other (RN) My Orders My Orders Orders - MELITON MACHUCA Procedure Category Date Status Time Insulin Lantus PHA 08/01/25 In Process (Glargine) (Lantus) 07:00 Full Liq Diet DIET 07/31/25 Transmitted Breakfast Date of Service: Jul 31, 2025 Billing Provider: EDGAR AUGUSTE DO Common Visit Codes: [id number] INP/OBS CARE(HIGH) MELITON MACHUCA RESIDENT Jul 31, 2025 16:41 ELIZABETH TORRES RESIDENT Aug 01, 2025 06:42 EDGAR AUGUSTE DO Aug 02, 2025 07:27
[2025-07-31] MEDS: SUCRALFATE 1 GM/10 ML ORAL SUSP PO ONE (16:45)
[2025-07-31] MEDS: NYSTATIN (MOUTH-THROAT) 500,000 UNITS/5 ML SUSP MT ONE (17:42)
[2025-07-31] MEDS: VANCOMYCIN 1GM/250ML KIT 250 ML IV SCH (18:54)
[2025-07-31] MEDS: MAGNESIUM SULFATE 1GM/100ML 100 ML IV ONE (21:01)
[2025-07-31 22:33] LABS: Hematocrit 38.1 % (36.0-46.0); Hemoglobin 12.8 g/dL (12.2-16.2)
[2025-07-31] MEDS: NYSTATIN (MOUTH-THROAT) 500,000 UNITS/5 ML SUSP MT SCH (22:55)
[2025-07-31] MEDS: SUCRALFATE 1 GM/10 ML ORAL SUSP PO SCH (22:55)
[2025-08-01] VITALS (9 sets, daily range): BP systolic 99–145; BP diastolic 68–94; PULSE 53–63; RESP 13–18; TEMP 97.4–98.6; O2SAT 97–100
[2025-08-01 06:44] LABS: Hematocrit 35.5 % (36.0-46.0); Hemoglobin 12.1 g/dL (12.2-16.2); Mean Corpuscular Hemoglobin 26.8 pg (28.0-32.0); Mean Corpuscular Volume 78.4 fL (80.0-100.0); Nucleated Red Blood Cells % 0.0 %
[2025-08-01 06:46] LABS: INR 1.05 (0.9-1.15); Partial Thromboplastin Time 27.9 SEC (24.5-34.5); Prothrombin Time 11.1 sec (9.3-11.8)
[2025-08-01 06:47] LABS: Alanine Aminotransferase 19 U/L (7-40); Albumin 3.8 g/dL (3.2-4.8); Alkaline Phosphatase 58 U/L (46-116); Anion Gap 9 (5-15); BUN/Creatinine Ratio 9.2 (10.0-20.0); Calcium 9.0 mg/dL (8.7-10.4); Carbon Dioxide 28 mmol/L (20-31); Chloride 105 mmol/L (98-107); Magnesium 1.9 mg/dL (1.6-2.6); Potassium 3.8 mmol/L (3.5-5.1); Sodium 142 mmol/L (136-145); Total Protein 5.8 g/dL (5.7-8.2)
[2025-08-01 06:48] LABS: Bilirubin, Total 0.8 mg/dL (0.2-1.0)
[2025-08-01 06:53] LABS: Blood Urea Nitrogen 6 mg/dL (9-23); Glucose 121 mg/dL (74-106)
[2025-08-01] MEDS: INSULIN LANTUS (GLARGINE) 1 /0.01ml (100units/ml) SC SCH (07:00)
[2025-08-01] MEDS ORDERED: SODIUM CHLORIDE LOCK 10 ML ONE (10:14)
[2025-08-01] MEDS: LIDOCAINE VISCOUS 2% 15ML UD ONE (14:43)
[2025-08-01] MEDS: diphenhydrAMINE HCL 50 MG/1 ML VL ONE (14:47)
[2025-08-01] MEDS: fentaNYL CITRATE 100 MCG/2 ML VL ONE (14:47)
[2025-08-01] MEDS: MIDAZOLAM HCL 5 MG/ML-1ML VIAL ONE (14:47)
--- NOTE | 2025-08-01 15:01 | DVHOP2 ---
Operative Report DATE OF OPERATION: 08/01/25 PROCEDURE: Upper Endoscopy with biopsy. PREOPERATIVE INDICATION: The patient is a 39 -year-old female undergoing endoscopy for nausea vomiting upper GI bleed POSTOPERATIVE DIAGNOSES: 1. 1 cm sliding-type hiatal hernia with minimal grade a linear erosive esophagitis 2. Otherwise normal examination up to the 2nd and 3rd part of the duodenum PROCEDURE PERFORMED BY: Yao Card GI NURSE: Alcira SCOPE: Olympus videoendoscope. ASA CLASS: 3 PREOPERATIVE MEDICATIONS: Versed 5 mg, Fentanyl 100 mcg, Benadryl 50 mg I administered moderate sedation throughout this _9_ minutes procedure. An independent trained observer pushed medications at my direction, and monitored the patient's level of consciousness and physiological status throughout. PROCEDURE IN DETAIL: After obtaining an informed consent, the patient was placed on left lateral decubitus position. The patient was then sedated with the above medications. A bite block was placed between her teeth. The endoscope was then passed through the oropharynx, into the esophagus, and through the stomach and pylorus up to the second and third part of the duodenum. The endoscope was then withdrawn. The 2nd and 3rd part of the duodenum and the duodenal bulb were normal. The pre-pyloric area antrum and body showed minimal gastritis On retroflexion the fundus and cardia were normal. Gastric biopsies were obtained. The endoscope was then withdrawn into the distal esophagus Patient had a 1-2 cm sliding-type hiatal hernia with mild grade a linear erosive esophagitis. There was no fresh or old blood in the upper GI tract The previously noted candidal esophagitis had healed. The proximal esophagus and oropharynx were unremarkable The patient tolerated the procedure well without difficulty. COMPLICATIONS : None SPECIMENS: Gastric biopsies Esophageal biopsies DISPOSITION: Transfer back to the floor Stable PLAN: 1. Await for biopsy result 2. Will place pt on Protonix 40 mg bid IV 3. Carafate 1 g p.o. twice a day 4. Resume GI soft diet advance as tolerated 5. Outpatient follow up with me in 4-6 weeks to review results and discuss further management YAO CARD MD Aug 01, 2025 15:01
[2025-08-01] MEDS ORDERED: PANT40TA2 PO (16:53)
[2025-08-01] MEDS ORDERED: ZOFR4T PO (16:53)
--- NOTE | 2025-08-01 20:43 | DVHDSRES ---
Discharge Summary Date of Admission Resident Creating Document: MELITON MACHUCA Jul 30, 2025 at 01:54 Date of Discharge: Aug 01, 2025 Labs/Diagnostic Data: Laboratory Results Test 08/01/25 17:38 08/01/25 05:40 07/31/25 16:48 07/31/25 05:00 POC Glucose 172 mg/dl (70-106) White Blood Count 7.6 10^3/uL (4.4-10.8) Red Blood Count 4.54 10^6/uL (4.0-5.20) Hemoglobin 12.1 g/dL (12.2-16.2) Hematocrit 35.5 % (36.0-46.0) Mean Corpuscular Volume 78.4 fL (80.0-100.0) Mean Corpuscular Hemoglobin 26.8 pg (28.0-32.0) Mean Corpuscular Hemoglobin Concent 34.2 g/dL (32.0-36.0) Red Cell Distribution Width 15.0 % (11.8-14.3) Platelet Count 253 10^3/uL (140-450) Mean Platelet Volume 9.2 fL (6.9-10.8) Neutrophils (%) (Auto) 49.3 % (37.0-80.0) Lymphocytes (%) (Auto) 38.7 % (10.0-50.0) Monocytes (%) (Auto) 7.8 % (0.0-12.0) Eosinophils (%) (Auto) 3.0 % (0.0-7.0) Basophils (%) (Auto) 1.2 % (0.0-2.0) Neutrophils # (Auto) 3.8 10 ^3/uL (1.6-8.6) Lymphocytes # (Auto) 3.0 10 ^3/uL (0.4-5.4) Monocytes # (Auto) 0.6 10 ^3/uL (0-1.3) Eosinophils # (Auto) 0.2 10 ^3/uL (0-0.8) Basophils # (Auto) 0.1 10 ^3/uL (0-0.2) Nucleated Red Blood Cells 0.0 % Prothrombin Time 11.1 sec (9.3-11.8) Prothrombin Time INR 1.05 (0.9-1.15) Activated Partial Thromboplast Time 27.9 SEC (24.5-34.5) Sodium Level 142 mmol/L (136-145) Potassium Level 3.8 mmol/L (3.5-5.1) Chloride Level 105 mmol/L (98-107) Carbon Dioxide Level 28 mmol/L (20-31) Anion Gap 9 (5-15) Blood Urea Nitrogen 6 mg/dL (9-23) Creatinine 0.65 mg/dL (0.550-1.02) Glomerular Filtration Rate Calc 115 mL/min (>90) BUN/Creatinine Ratio 9.2 (10.0-20.0) Serum Glucose 121 mg/dL (74-106) Lactic Acid Level 0.7 mmol/L (0.4-2.0) Calcium Level 9.0 mg/dL (8.7-10.4) Magnesium Level 1.9 mg/dL (1.6-2.6) Total Bilirubin 0.8 mg/dL (0.2-1.0) Aspartate Amino Transferase (AST) 19 U/L (13-40) Alanine Aminotransferase (ALT) 19 U/L (7-40) Alkaline Phosphatase 58 U/L (46-116) Total Protein 5.8 g/dL (5.7-8.2) Albumin 3.8 g/dL (3.2-4.8) Vancomycin Level Trough 8.8 ug/mL (5-10) Free Thyroxine (T4) Calculated 1.00 ng/dL (0.89-1.76) Free Triiodothyronine (T3) pg/mL 3.01 pg/mL (2.3-4.2) Test 07/30/25 11:55 07/30/25 06:09 07/30/25 02:25 07/30/25 02:18 Urine Color Light-yellow (Yellow) Urine Clarity Clear (Clear) Urine pH 6.0 (5.0-9.0) Urine Specific [place] 1.015 (1.001-1.035) Urine Protein Negative (Negative) Urine Ketones 1+ (Negative) Urine Blood Negative /uL (Negative) Urine Nitrite Negative (Negative) Urine Bilirubin Negative (Negative) Urine Urobilinogen Normal mg/dL (Negative) Urine Leukocyte Esterase Negative /uL (Negative) Urine RBC 1 /hpf (0 - 4) Urine Microscopic WBC 1 /HPF (0-5) Urine Squamous Epithelial Cells Few /hpf (<5) Urine Bacteria None seen /hpf (None Seen) Urine Mucus Few (None Seen) Urine Osmolality 613 mOsm/kg Urine Glucose 2+ mg/dL (Normal) Urine Test Negative (Negative) Urine Opiates Screen Pos (NEGATIVE) Urine Fentanyl Screen Pos (NEGATIVE) Urine Barbiturates Screen Neg (NEGATIVE) Urine Phencyclidine Screen Neg (NEGATIVE) Urine Amphetamines Screen Neg (NEGATIVE) Urine Benzodiazepines Screen Neg (NEGATIVE) Urine Cocaine Screen Neg (NEGATIVE) Urine Cannabinoids Screen Pos (NEGATIVE) Hemoglobin A1c 6.5 % A1C (<5.7) Phosphorus Level 2.1 mg/dL (2.4-5.1) Troponin I High Sensitivity 6 ng/L (</=34) Vitamin B12 Level 443 pg/mL (211-911) Vitamin D 25-Hydroxy 25.3 ng/mL (30.0-100) Folic Acid 11.19 ng/mL (>5.38) Hepatitis B Surface Antibody Positive (Negative) Hepatitis C Antibody Negative (Negative) Blood Gas Specimen Type Arterial Blood Gas Sample Site Left radial Blood Gas Patient Temperature 37.0 Arterial Blood Date Drawn Arterial Blood pH 7.602 (7.350-7.450) Arterial Blood Partial Pressure CO2 19.6 mmHg (32.0-45.0) Arterial Blood Partial Pressure O2 114.3 mmHg (83.0-108.0) Arterial Blood HCO3 18.9 mmol/L (21.0-28.0) Arterial Blood Oxygen Saturation 98.2 % (94.0-98.0) Arterial Blood Base Excess 0.1 mmol/L (-2.0-3.0) Arterial Blood Oxyhemoglobin 96.8 % (94.0-98.0) Arterial Blood Carboxyhemoglobin 0.9 % (0.5-1.5) Arterial Blood Methemoglobin 0.5 % (0.0-1.5) Sarath Test Yes Blood Gas Total Hemoglobin 15.40 g/dL (12.0-16.0) Blood Gas Modality Room air FiO2 % 21.0 Blood Gas Critical Value Read Back yes Blood Gas Notified Whom Blood Gas Notified Time Blood Gas Notified By airconditioning plant operator reba Thyroid Stimulating Hormone (TSH) 0.53 uIU/mL (0.55-4.78) Plasma/Serum Blood Alcohol < 3.0 mg/dL (<10) Test 07/29/25 23:20 07/29/25 23:05 Beta-Hydroxybutyric Acid 0.340 mmol/L (< 0.4) Serum Osmolality 305 mOsm/kg (278-298) Lipase 36 U/L (12-53) Other Laboratory Tests 08/01/25 05:40 Brief Hx & Hospital Course: Patient is 39 years old female with a past medical history of diabetes mellitus type 2, hypertension, GERD, thyroid disease, Belle esophagitis, gastritis came with a complaint of abdominal pain. As per patient she has been having abdominal pain started yesterday morning around a.m. which woke her up from sleep, 06/23, epigastric/upper abdominal, initially it was intermittent then it gradually became constant, radiating to the back. Patient also endorsed nausea and vomiting several times, with blood. On further inquiry patient reported she had diarrhea 5-6 times, no blood. Patient also reported burning chest pain started today, 01/21. On further inquiry patient reported she was feeling chilled at home but did not measure temperature. Patient was recently admitted at [facility] in April, and had endoscopy which revealed candidal esophagitis, 1-2 cm sliding hiatal hernia with erosive gastritis and mild gastritis. Echocardiogram on 04/15/2025 revealed LVEF 65%. Blood culture and urine culture negative for any growth so far. UDS positive for cannabinoids, fentanyl, opiates. Patient was initially treated with ABX Meropenem and Vancomycin, later on switched to Ceftriaxon and Metronidazole. Patient was seen by [facility], EGD on 08/01/2025 revealed 1. 1 cm sliding-type hiatal hernia with minimal grade a linear erosive esophagitis. Patient was discharged with Pantoprazole. Meds were sent to the pharmacy Electronically. Vitals stable on Discharge. 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 Operations or Procedures Patient: MEJIA GARCIA Acct: [id number] : 1985 Loc: [facility] Age/Sex: 39/F Room: [address] [place], [place] [address]T / Bed: 3 Attending Phy: MELITON MACHUCA RESIDENT Operative Report DATE OF OPERATION: 08/01/25 PROCEDURE: Upper Endoscopy with biopsy. PREOPERATIVE INDICATION: The patient is a 39 -year-old female undergoing endoscopy for nausea vomiting upper GI bleed POSTOPERATIVE DIAGNOSES: 1. 1 cm sliding-type hiatal hernia with minimal grade a linear erosive esophagitis 2. Otherwise normal examination up to the 2nd and 3rd part of the duodenum PROCEDURE PERFORMED BY: Yao Card GI NURSE: Alcira SCOPE: Olympus videoendoscope. ASA CLASS: 3 PREOPERATIVE MEDICATIONS: Versed 5 mg, Fentanyl 100 mcg, Benadryl 50 mg I administered moderate sedation throughout this _9_ minutes procedure. An independent trained observer pushed medications at my direction, and monitored the patient's level of consciousness and physiological status throughout. PROCEDURE IN DETAIL: After obtaining an informed consent, the patient was placed on left lateral decubitus position. The patient was then sedated with the above medications. A bite block was placed between her teeth. The endoscope was then passed through the oropharynx, into the esophagus, and through the stomach and pylorus up to the second and third part of the duodenum. The endoscope was then withdrawn. The 2nd and 3rd part of the duodenum and the duodenal bulb were normal. The pre-pyloric area antrum and body showed minimal gastritis On retroflexion the fundus and cardia were normal. Gastric biopsies were obtained. The endoscope was then withdrawn into the distal esophagus Patient had a 1-2 cm sliding-type hiatal hernia with mild grade a linear erosive esophagitis. There was no fresh or old blood in the upper GI tract The previously noted candidal esophagitis had healed. The proximal esophagus and oropharynx were unremarkable The patient tolerated the procedure well without difficulty. COMPLICATIONS : None SPECIMENS: Gastric biopsies Esophageal biopsies DISPOSITION: Transfer back to the floor Stable PLAN: 1. Await for biopsy result 2. Will place pt on Protonix 40 mg bid IV 3. Carafate 1 g p.o. twice a day 4. Resume GI soft diet advance as tolerated 5. Outpatient follow up with me in 4-6 weeks to review results and discuss further management YAO CARD MD Aug 01, 2025 15:01 DICTATED BY:YAO CARD MD DICTATED DATE/TIME:08/01/25 1501 ELECTRONICALLY SIGNED BY:YAO CARD MD 08/01/25 1501 ELECTRONICALLY CO-SIGNED BY: [address] [id number] Ph: [phone] DIAGNOSTIC IMAGING Diagnostic Imaging Report : [id number] Signed PATIENT: MEJIA GARCIA ACCT: [id number] UNIT: [id number] : 1985 LOC: OVERFLOW ROOM / BED: [facility] / A AGE / SEX: 39 / F ADM STATUS: ADM IN SERVICE 0115 ORDERING PHYSICIAN: CRISTHIAN PARHAM PROCEDURE(s): ABPL - CT AB PEL WO CON-NO ORAL OR IV REASON: Pain nausea and vomiting ORDER NUMBER(s): [id number], ACCESSION NUMBER(s): [id number] MEDICAL RECORDS NUMBER: [id number] PROCEDURE: CT CT AB PEL WO CON-NO ORAL OR IV DATE: 07/30/2025 01:20 AM HISTORY: Pain nausea and vomiting TECHNIQUE: CT of the abdomen and pelvis is performed without IV contrast. CONTRAST: none Oral Contrast: No oral contrast was utilized. COMPARISON: CT CT AB PEL WO CON-NO ORAL OR IV on DOS: 04/14/25, CT CT AB PEL WO CON-NO ORAL OR IV on DOS: 03/16/25, CT CT AB PEL WITH IV CON ONLY on DOS: 01/12/25, CT CT AB PEL WITH IV CON ONLY on DOS: 11/24/24, CT CT AB PEL WITH IV CON ONLY on DOS: 05/27/24 RADIATION DOSE INFORMATION: Automated exposure control dose reduction techniques were used. FINDINGS: Lung bases: Limited evaluation of the lung bases demonstrates no focal airspace process or pneumothorax. Mediastinum:Lower mediastinal structures appear unremarkable. Liver: The liver is normal in size. There is no focal liver lesion. Biliary ducts: There is no evidence of intrahepatic or extrahepatic biliary ductal dilatation. Gallbladder: The gallbladder has apparently been surgically removed. Spleen: The spleen is normal in size without focal lesion. Stomach: The stomach appears unremarkable. Pancreas: The pancreas is unremarkable. Adrenal glands: The adrenal glands are unremarkable. Kidneys: The kidneys are normal in size and are symmetric. There is no evidence of hydronephrosis. No focal renal lesion is noted. Aorta and IVC: The aorta and IVC are patent and are normal in size. Mesenteric vessels: Major mesenteric vessels appear to be intact. Bowel: The visualized portions of the small and large bowel are normal in caliber. Appendix: The appendix is unremarkable. Pelvis:Pelvic structures appear unremarkable. Lymph nodes: There is no evidence of lymphadenopathy. Osseous structures: The osseous structures are intact. No lytic or blastic osseous lesion is noted. Free fluid/free air: None IMPRESSION: 1. No acute process is seen. No findings are seen to explain the patient's symptoms. ATED BY: VALDO HURST MD DICTATED DATE/TIME: 07/30/25224 SIGNED BY: VALDO HURST MD SIGNED DATE/TIME: 07/30/25224 CC: [place] [address] Ph: [phone] DIAGNOSTIC IMAGING Diagnostic Imaging Report : [id number] Signed PATIENT: MEJIA GARCIA ACCT: [id number] UNIT: [id number] : 1985 LOC: OVERFLOW ROOM / BED: [address] [place] [address] AGE / SEX: 39 / F ADM STATUS: ADM IN SERVICE 3 ORDERING PHYSICIAN: MELITON MACHUCA RESIDENT PROCEDURE(s): CXR1 - CHEST XRAY 1 VIEW REASON: Rule out pneumonia/pneumomediastinum ORDER NUMBER(s): [id number], ACCESSION NUMBER(s): [id number] CHEST RADIOGRAPH Indication: Rule out pneumonia/pneumomediastinum Technique: 1 view Comparison: XY CHEST PORTABLE on DOS: 04/15/25, XY CHEST PORTABLE on DOS: 03/16/25, XY CHEST PORTABLE on DOS: 05/06/24, XY CHEST PORTABLE on DOS: 10/26/23 FINDINGS: Lines and Tubes: None. Lungs/Pleura: No focal consolidation, pleural effusion or pneumothorax. Similar bilateral infrahilar interstitial prominence. Cardiomediastinum: Unremarkable. Other: No acute osseous abnormality. IMPRESSION: 1. No acute cardiopulmonary abnormality or significant change from the prior exam. ATED BY: VALDO HURST MD DICTATED DATE/TIME: 07/30/25555 SIGNED BY: VALDO HURST MD SIGNED DATE/TIME: 07/30/25555 CC: Condition at Discharge: Stable Final Diagnosis/Problems List # sepsis # acute gastroenteritis # intractable abdominal pain likely due to gastroenteritis/marijuana induced hyperemesis, ruled out acute pancreatitis # lactic acidosis # uncontrolled diabetes mellitus. 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 Medications: see prescription Scheduled Diphenhydramine Hcl (Banophen), 1 CAP PO QHSP, (Reported) Escitalopram Oxalate (Escitalopram Oxalate), 1 TAB PO DAILY, (Reported) Fluconazole (Diflucan), 1 TAB PO DAILY Glipizide (Glipizide), 1 TAB PO DAILY, (Reported) Lisinopril (Lisinopril), 1 TAB PO DAILY, (Reported) Metformin Hydrochloride (Metformin Hcl), 1 TAB PO BID, (Reported) Nystatin (Mouth-Throat) (Mycostatin (Mouth-Throat)), 5 ML MT QID Pantoprazole Sodium Sesquihydr (Pantoprazole Sodium Dr), 40 MG PO DAILY Pantoprazole Sodium Sesquihydr (Protonix), 40 MG PO DAILY Simvastatin (Simvastatin), 1 TAB PO QPM, (Reported) Sucralfate (Carafate Susp), 10 ML PO QID Scheduled PRN Dicyclomine Hcl (Dicyclomine Hcl), 1 TAB PO TID PRN for UNSPECIFIED ABDOMINAL PAIN, (Reported) Ondansetron Odt 4MG Tab (Zofran Po), 4 MG PO Q12HP PRN Discharge Statement: "Patient was advised to return to the ER or call 911 if any headaches, dizziness, shortness of breath, chest pain, abdominal pain, bleeding, fevers, or worsening of medical condition. Patient was counseled about treatment plan, medications, possible side effects, patientverbalized understanding. All questions were answered to the best of my ability. This discharge took greater then 30 minutes in planning, reviewing documentation, counseling the patient, and discussing with other team members." ASSESSMENT ASSESSMENT Assessment GI bleeding Date of Service: Aug 01, 2025 Billing Provider: EDGAR AUGUSTE DO Common Visit Codes: 37987-RLK/OBS DISCH DAY >30min MELITON MACHUCA RESIDENT Aug 01, 2025 20:43 EDGAR AUGUSTE DO Aug 02, 2025 07:28
== END 2025-08-01 20:15 | disposition home or self-care (01) | DRG 720 ==
LOC: EDUNIT# 19:59 → ER 19:59 → EDBD 19:59 → OVERFLOW 07-30 01:54 → MERGE 07-30 01:54 → OVERFLOW 07-30 01:56 → TELE-EAST 07-31 22:21
PROVIDERS: ADMIT Internal Medicine; ATTEND Internal Medicine
PROC: 0DB68ZX Excision of Stomach, Via Natural or Artificial Opening Endoscopic, Diagnostic (ICD-10-PCS; 2025-08-01)
PROC: 0DB58ZX Excision of Esophagus, Via Natural or Artificial Opening Endoscopic, Diagnostic (ICD-10-PCS; principal; 2025-08-01 14:40)
DX: A41.9 Sepsis, unspecified organism (principal); E87.20 Acidosis, unspecified; K22.11 Ulcer of esophagus with bleeding; B37.81 Candidal esophagitis; I24.9 Acute ischemic heart disease, unspecified; K21.01 Gastro-esophageal reflux disease with esophagitis, with bleeding; K22.6 Gastro-esophageal laceration-hemorrhage syndrome; A04.9 Bacterial intestinal infection, unspecified; E11.65 Type 2 diabetes mellitus with hyperglycemia; I10 Essential (primary) hypertension; F11.10 Opioid abuse, uncomplicated; E07.9 Disorder of thyroid, unspecified; K44.9 Diaphragmatic hernia without obstruction or gangrene; R11.16 Cannabis hyperemesis syndrome; Z79.4 Long term (current) use of insulin; Z83.3 Family history of diabetes mellitus; Z87.891 Personal history of nicotine dependence; Z88.0 Allergy status to penicillin; Z90.710 Acquired absence of both cervix and uterus; Z88.2 Allergy status to sulfonamides; Z82.49 Family history of ischemic heart disease and other diseases of the circulatory system; Z79.899 Other long term (current) drug therapy; Z79.84 Long term (current) use of oral hypoglycemic drugs
CPT/HCPCS: 36415; 36600; 43239; 71045; 74176; 80053; 80202; 80307; 80320; 81001; 81025; 82010; 82306; 82607; 82746; 82805; 82962; 83036; 83605; 83690; 83735; 83930; 83935; 84100; 84439; 84443; 84481; 84484; 85014; 85018; 85025; 85610; 85730; 86706; 86803; 86850; 86900; 86901; 87040; 87086; 96365; 96375; G0378; J1815; J2185; J2250; J2405; J2470; J3480; J3490